=== PATIENT | male | born 1950 | race Caucasian/White ===

== ENCOUNTER → 2017-03-28 | Outpatient (REF) | payer OTHER ==
[2017-03-28 11:50] LABS: INR 0.89
[2017-03-28 11:55] LABS: ALBUMIN 3.6 GM/DL (3.2-5.2); ALBUMIN/GLOBULIN RATIO 0.95 (1.00-1.93); ALKALINE PHOSPHATASE 68 U/L (45-117); ALT/SGPT 23 U/L (12-78); ANION GAP 9 MEQ/L (8-16); AST/SGOT 8 U/L (15-37); BILIRUBIN,TOTAL 0.4 MG/DL (0.2-1.0); BLOOD UREA NITROGEN 22 MG/DL (7-18); CARBON DIOXIDE LEVEL 24 MEQ/L (21-32); CHLORIDE LEVEL 105 MEQ/L (98-107); CHOLESTEROL LEVEL 269 MG/DL (<200); CREATININE FOR GFR 0.97 MG/DL (0.70-1.30); GLOMERULAR FILTRATION RATE > 60.0 (>49); GLUCOSE, FASTING 219 MG/DL (80-110); POTASSIUM SERUM 4.5 MEQ/L (3.5-5.1); SODIUM LEVEL 138 MEQ/L (136-145); TOTAL PROTEIN 7.4 GM/DL (6.4-8.2); TRIGLYCERIDES LEVEL 168 MG/DL (<150)
== END ==
LOC: M SFHCPLAZ 08:17
PROVIDERS: ATTEND Family Medicine
DX: E11.9 Type 2 diabetes mellitus without complications (principal); Z12.5 Encounter for screening for malignant neoplasm of prostate; K76.0 Fatty (change of) liver, not elsewhere classified
CPT/HCPCS: 36415; 80053; 80061; 81001; 82043; 82550; 83036; 85610; 85730; 86140; G0103

== ENCOUNTER 2017-04-11 12:09 | Emergency (ER) | payer OTHER ==
[~2017-04-11] VITALS: Ht 170.2 cm; Wt 87.8 kg
[2017-04-11] MEDS ORDERED: METF500T13 (12:20)
[2017-04-11] MEDS ORDERED: ATEN50TA2 (12:20)
[2017-04-11] MEDS ORDERED: HYDR-3713 (12:20)
[2017-04-11] MEDS ORDERED: LISI10TA4 (12:20)
[2017-04-11] MEDS ORDERED: EZET10TA (12:20)
[2017-04-11] MEDS ORDERED: CARI350T (12:20)
[2017-04-11] MEDS ORDERED: IBUP80TA (12:20)
[2017-04-11] MEDS ORDERED: GLIM4TAB (12:20)
[2017-04-11 13:41] LABS: BASO # 0.1 K/mm3 (0.0-0.2); BASO % 0.7 % (0.0-1.0); EOS # 0.2 K/mm3 (0.0-0.50); EOS % 3.2 % (0.0-3.0); LARGE UNSTAINED CELL # 0.1 K/mm3 (0.0-0.4); LARGE UNSTAINED CELL % 1.5 % (0.0-4.0); LYMPH # 1.5 K/mm3 (1.5-4.5); LYMPH % 19.6 % (24.0-44.0); MEAN CORPUSCULAR HEMOGLOBIN 32.6 pg (27.0-33.0); MEAN CORPUSCULAR HGB CONC 35.9 g/dl (32.0-36.5); MONO # 0.5 K/mm3 (0.0-0.8); MONO % 6.7 % (0.0-5.0); NEUTROPHILS # 5.3 K/mm3 (1.8-7.7); NEUTROPHILS % 68.2 % (36.0-66.0); PLATELET COUNT, AUTOMATED 253 k/mm3 (150-450); RED CELL DISTRIBUTION WIDTH 13.1 % (11.5-14.5); WHITE BLOOD COUNT 7.8 K/mm3 (4.0-10.0)
[2017-04-11 13:47] LABS: ANION GAP 5 MEQ/L (8-16); BLOOD UREA NITROGEN 19 MG/DL (7-18); CALCIUM LEVEL 9.4 MG/DL (8.8-10.2); CARBON DIOXIDE LEVEL 25 MEQ/L (21-32); CHLORIDE LEVEL 108 MEQ/L (98-107); CREATININE FOR GFR 1.16 MG/DL (0.70-1.30); GLOMERULAR FILTRATION RATE > 60.0 (>49); GLUCOSE, FASTING 156 MG/DL (80-110); POTASSIUM SERUM 4.2 MEQ/L (3.5-5.1); SODIUM LEVEL 138 MEQ/L (136-145)
--- NOTE | 2017-04-11 14:20 | REP ---
REASON: Stroke- like symptoms. COMPARISON: None. 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 There is no acute intracranial hemorrhage. There is no mass. The ventricles and sulci are within normal limits. There is no evidence of an acute intracranial hemorrhagic or nonhemorrhagic event. The skull base shows a large defect in the right mastoid air cells consistent with the patient's surgical history. IMPRESSION: No evidence of acute disease as described above. Signed by Lamin Graves DO 04/11/2017 03:59 P
--- NOTE | 2017-04-11 14:22 | REP ---
REASON: Stroke-like symptoms. COMPARISON: 11/18/2008 The technique utilized in obtaining the radiograph has magnified the cardiac silhouette and accentuated the interstitial markings. Subtle increased and somewhat patchy interstitial markings are seen in the lung bases representing a change from the prior exam. The lung sibley are otherwise clear. The heat is not enlarged and the osseous structures are within normal limits. IMPRESSION: Findings involving the lung bases only of uncertain etiology. Basilar fibrotic change and possible basilar pneumonia, correlate clinically with appropriate followup. Signed by Lamin Graves DO 04/11/2017 03:59 P
[2017-04-11] MEDS ORDERED: MECL-68 PO (14:44)
[2017-04-11] MEDS ORDERED: LORazepam 0.5 MG TAB PO ONE (15:30)
[2017-04-11] MEDS ORDERED: amLODIPine 5 MG TAB PO ONE (15:30)
[2017-04-11 15:37] VITALS: BP 212/101
[2017-04-11 16:30] VITALS: BP 193/93
--- NOTE | 2017-04-12 09:17 | ECGEPIP ---
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
== END 2017-04-11 16:58 | disposition home or self-care (01) ==
LOC: M ED 13:16
DX: I10 Essential (primary) hypertension (principal); H83.09 Labyrinthitis, unspecified ear; R26.2 Difficulty in walking, not elsewhere classified; E11.9 Type 2 diabetes mellitus without complications; Z85.828 Personal history of other malignant neoplasm of skin; Z79.899 Other long term (current) drug therapy; Z79.84 Long term (current) use of oral hypoglycemic drugs

== ENCOUNTER → 2017-04-27 | Outpatient (REF) | payer OTHER ==
[~2017-04-27] MED LIST: ATEN50TA2; CARI350T; EZET10TA; GLIM4TAB; HYDR-3713; IBUP80TA; LISI10TA4; MECL-68 PO; METF500T13
[2017-04-27 17:48] LABS: BASO % 0.6 % (0.0-1.0); EOS # 0.3 K/mm3 (0.0-0.50); EOS % 3.7 % (0.0-3.0); LARGE UNSTAINED CELL # 0.2 K/mm3 (0.0-0.4); LARGE UNSTAINED CELL % 2.4 % (0.0-4.0); LYMPH # 1.6 K/mm3 (1.5-4.5); LYMPH % 20.4 % (24.0-44.0); MEAN CORPUSCULAR HEMOGLOBIN 32.7 pg (27.0-33.0); MEAN CORPUSCULAR HGB CONC 34.7 g/dl (32.0-36.5); MEAN CORPUSCULAR VOLUME 94.3 fl (80.0-96.0); MONO # 0.5 K/mm3 (0.0-0.8); MONO % 6.2 % (0.0-5.0); NEUTROPHILS # 5.3 K/mm3 (1.8-7.7); NEUTROPHILS % 66.7 % (36.0-66.0); PLATELET COUNT, AUTOMATED 265 k/mm3 (150-450); RED CELL DISTRIBUTION WIDTH 12.8 % (11.5-14.5); WHITE BLOOD COUNT 7.9 K/mm3 (4.0-10.0)
[2017-04-27 18:56] LABS: ANION GAP 10 MEQ/L (8-16); BLOOD UREA NITROGEN 26 MG/DL (7-18); CARBON DIOXIDE LEVEL 25 MEQ/L (21-32); CHLORIDE LEVEL 104 MEQ/L (98-107); CREATININE FOR GFR 1.22 MG/DL (0.70-1.30); GLOMERULAR FILTRATION RATE > 60.0 (>49); GLUCOSE, FASTING 224 MG/DL (80-110); POTASSIUM SERUM 4.2 MEQ/L (3.5-5.1); SODIUM LEVEL 139 MEQ/L (136-145)
[2017-04-27 20:48] LABS: ERYTHROCYTE SEDIMENTATION RATE 19 mm/hr (0-20)
[2017-04-30 00:07] LABS: Lyme Disease IgG/IgM Antibodie <0.91 ISR (0.00-0.90); Lyme Disease IgM Ab Quantitati <0.80 index (0.00-0.79)
== END ==
LOC: M SFHCPLAZ 16:16
PROVIDERS: ATTEND Family Medicine
DX: M25.50 Pain in unspecified joint (principal); N18.3 Chronic kidney disease, stage 3 (moderate)
CPT/HCPCS: 36415; 80048; 85025; 85652; 86038; 86140; 86200; 86431; 86617; G0463

== ENCOUNTER → 2017-05-25 | Outpatient (REF) | payer OTHER | LOC: M SFHCPLAZ 15:47 | PROVIDERS: ATTEND Physician Assistant Medical | DX: N41.0 Acute prostatitis (principal) | CPT/HCPCS: 36415; G0103 ==

== ENCOUNTER 2017-11-15 09:14 | Day surgery (SDC) | payer OTHER ==
[2017-11-15] MEDS: NS 1,000 ML IV (09:30)
[2017-11-15] MEDS ORDERED: PROPOFOL 200 MG/20 ML VIAL As Ordered ×2 (10:43→11:08)
== END 2017-11-15 11:44 | disposition home or self-care (01) ==
LOC: M OPP 09:14
DX: Z12.11 Encounter for screening for malignant neoplasm of colon (principal); D12.5 Benign neoplasm of sigmoid colon; K64.0 First degree hemorrhoids; K57.30 Diverticulosis of large intestine without perforation or abscess without bleeding; I10 Essential (primary) hypertension; E78.5 Hyperlipidemia, unspecified; E11.9 Type 2 diabetes mellitus without complications; M54.9 Dorsalgia, unspecified; H71.91 Unspecified cholesteatoma, right ear; Z87.891 Personal history of nicotine dependence; Z79.82 Long term (current) use of aspirin; Z79.899 Other long term (current) drug therapy
CPT/HCPCS: 45385

== ENCOUNTER → 2017-11-22 | Outpatient (REF) | payer OTHER ==
[2017-11-22 12:51] LABS: ALBUMIN 3.5 GM/DL (3.2-5.2); ALBUMIN/GLOBULIN RATIO 0.95 (1.00-1.93); ALKALINE PHOSPHATASE 71 U/L (45-117); ALT/SGPT 18 U/L (12-78); ANION GAP 7 MEQ/L (8-16); AST/SGOT 9 U/L (7-37); BILIRUBIN,TOTAL 0.4 MG/DL (0.2-1.0); BLOOD UREA NITROGEN 17 MG/DL (7-18); CALCIUM LEVEL 8.7 MG/DL (8.8-10.2); CARBON DIOXIDE LEVEL 26 MEQ/L (21-32); CHLORIDE LEVEL 104 MEQ/L (98-107); CHOLESTEROL LEVEL 199 MG/DL (<200); CHOLESTEROL RISK RATIO 4.061 (<5); CREATININE FOR GFR 0.94 MG/DL (0.70-1.30); GLOMERULAR FILTRATION RATE > 60.0 (>49); GLUCOSE, FASTING 178 MG/DL (70-100); HDL CHOLESTEROL 49 MG/DL (>40); NON-HDL-C 150 MG/DL; POTASSIUM SERUM 4.7 MEQ/L (3.5-5.1); SODIUM LEVEL 137 MEQ/L (136-145); TOTAL PROTEIN 7.2 GM/DL (6.4-8.2); TRIGLYCERIDES LEVEL 85 MG/DL (<150)
[2017-11-22 12:54] LABS: PTH INTACT 25.5 PG/ML (14.0-72.0)
[2017-11-22 12:56] LABS: ESTIMATED AVERAGE GLUCOSE 226 MG/DL (60-110); HEMOGLOBIN A1c 9.5 %
== END ==
LOC: M SFHCPLAZ 08:58
DX: E78.5 Hyperlipidemia, unspecified (principal); N18.3 Chronic kidney disease, stage 3 (moderate)
CPT/HCPCS: 80053

== ENCOUNTER → 2018-04-03 | Outpatient (REF) | payer OTHER ==
[2018-04-03 13:38] LABS: BASO % 0.4 % (0.0-1.0); EOS # 0.2 10^3/uL (0.0-0.50); HEMATOCRIT 38.8 % (42.0-52.0); HEMOGLOBIN 13.5 g/dl (13.5-17.5); IMMATURE GRANULOCYTE % 0.8 % (0-3.0); LYMPH # 1.6 10^3/uL (1.5-4.5); LYMPH % 20.3 % (24.0-44.0); MEAN CORPUSCULAR HEMOGLOBIN 31.4 pg (27.0-33.0); MEAN CORPUSCULAR HGB CONC 34.8 g/dl (32.0-36.5); MEAN CORPUSCULAR VOLUME 90.2 fl (80.0-96.0); MONO # 0.7 10^3/uL (0.0-0.8); MONO % 8.7 % (0.0-5.0); NEUTROPHILS # 5.1 10^3/uL (1.8-7.7); NEUTROPHILS % 66.8 % (36.0-66.0); PLATELET COUNT, AUTOMATED 231 10^3/uL (150-450); RED CELL DISTRIBUTION WIDTH 12.2 % (11.5-14.5); RETIC HEMOGLOBIN EQUIVALENT 37.9 pg (24-36); RETICULOCYTE # 60.2 10^9/L (17-77); RETICULOCYTE % 1.4 % (0.5-1.5); WHITE BLOOD COUNT 7.7 10^3/uL (4.0-10.0)
[2018-04-03 13:52] LABS: PTH INTACT 42.5 PG/ML (18.5-88.0)
[2018-04-03 13:53] LABS: ALBUMIN 3.5 GM/DL (3.2-5.2); ALBUMIN/GLOBULIN RATIO 0.88 (1.00-1.93); ALKALINE PHOSPHATASE 77 U/L (45-117); ALT/SGPT 29 U/L (12-78); ANION GAP 9 MEQ/L (8-16); AST/SGOT 12 U/L (7-37); BILIRUBIN,TOTAL 0.3 MG/DL (0.2-1.0); BLOOD UREA NITROGEN 27 MG/DL (7-18); CALCIUM LEVEL 8.6 MG/DL (8.8-10.2); CARBON DIOXIDE LEVEL 23 MEQ/L (21-32); CHLORIDE LEVEL 104 MEQ/L (98-107); CREATININE FOR GFR 1.09 MG/DL (0.70-1.30); GLOMERULAR FILTRATION RATE > 60.0 (>49); GLUCOSE, FASTING 129 MG/DL (70-100); MAGNESIUM LEVEL 1.9 MG/DL (1.8-2.4); POTASSIUM SERUM 4.4 MEQ/L (3.5-5.1); PSA SCREENING 2.21 NG/ML (< 4.0); SODIUM LEVEL 136 MEQ/L (136-145); TOTAL PROTEIN 7.5 GM/DL (6.4-8.2)
[2018-04-03 14:24] LABS: TOTAL 25(OH) VITAMIN D 16.9 NG/ML (30.0-100.0)
[2018-04-03 14:32] LABS: ESTIMATED AVERAGE GLUCOSE 189 MG/DL (60-110); HEMOGLOBIN A1c 8.2 %
== END ==
LOC: M SFHCPLAZ 10:45
DX: N18.3 Chronic kidney disease, stage 3 (moderate) (principal); E11.8 Type 2 diabetes mellitus with unspecified complications; Z12.5 Encounter for screening for malignant neoplasm of prostate
CPT/HCPCS: 83735

== ENCOUNTER → 2018-04-07 | Outpatient (CLI) | payer OTHER | LOC: M RAD 07:40 | DX: K76.89 Other specified diseases of liver (principal) | CPT/HCPCS: 76705 ==

== ENCOUNTER 2018-09-10 07:54 | Emergency (ER) | payer OTHER ==
[2018-09-10] MEDS: LIDOCAINE 1% MDV 20ML VIAL IM (08:34)
== END 2018-09-10 08:49 | disposition home or self-care (01) ==
LOC: M ED 07:54
DX: S40.862A Insect bite (nonvenomous) of left upper arm, initial encounter (principal); W57.XXXA Bitten or stung by nonvenomous insect and other nonvenomous arthropods, initial encounter; Y92.89 Other specified places as the place of occurrence of the external cause; I10 Essential (primary) hypertension; E11.9 Type 2 diabetes mellitus without complications; Z79.899 Other long term (current) drug therapy; Z79.84 Long term (current) use of oral hypoglycemic drugs; Z79.82 Long term (current) use of aspirin; Z87.891 Personal history of nicotine dependence
CPT/HCPCS: 10120

== ENCOUNTER → 2018-10-13 | Outpatient (REF) | payer OTHER ==
[~2018-10-13] MED LIST changes: +ASPI81TA85 PO; -ATEN50TA2; +ATEN50TA2 PO; +CARI1TAB7; -CARI350T; -EZET10TA; +EZET10TA PO; -GLIM4TAB; +GLIM4TAB PO; -HYDR-3713; +HYDR-3713 PO; -IBUP80TA; +IBUP80TA PO; +LISI-538 PO; -METF500T13; +METF500T13 PO; +SOMA350T PO
[2018-10-13 12:03] LABS: BASO # 0.1 10^3/uL (0.0-0.2); BASO % 0.7 % (0.0-1.0); EOS # 0.3 10^3/uL (0.0-0.50); HEMATOCRIT 38.9 % (42.0-52.0); HEMOGLOBIN 13.3 g/dl (13.5-17.5); LYMPH # 1.3 10^3/uL (1.5-4.5); LYMPH % 19.5 % (24.0-44.0); MEAN CORPUSCULAR HEMOGLOBIN 31.4 pg (27.0-33.0); MEAN CORPUSCULAR HGB CONC 34.2 g/dl (32.0-36.5); MEAN CORPUSCULAR VOLUME 91.7 fl (80.0-96.0); MONO # 0.6 10^3/uL (0.0-0.8); NEUTROPHILS # 4.5 10^3/uL (1.8-7.7); NEUTROPHILS % 65.6 % (36.0-66.0); PLATELET COUNT, AUTOMATED 253 10^3/uL (150-450); RED BLOOD COUNT 4.24 10^6/uL (4.30-6.10); WHITE BLOOD COUNT 6.8 10^3/uL (4.0-10.0)
[2018-10-13 12:29] LABS: ALBUMIN 3.3 GM/DL (3.2-5.2); ALT/SGPT 21 U/L (12-78); BILIRUBIN,TOTAL 0.4 MG/DL (0.2-1.0); BLOOD UREA NITROGEN 15 MG/DL (7-18); CALCIUM LEVEL 8.4 MG/DL (8.8-10.2); CARBON DIOXIDE LEVEL 25 MEQ/L (21-32); CHLORIDE LEVEL 104 MEQ/L (98-107); CHOLESTEROL LEVEL 189 MG/DL (<200); CHOLESTEROL RISK RATIO 3.375 (<5); CREATININE FOR GFR 1.08 MG/DL (0.70-1.30); GLOMERULAR FILTRATION RATE > 60.0 (>49); GLUCOSE, FASTING 177 MG/DL (70-100); HDL CHOLESTEROL 56 MG/DL (>40); LDL CHOLESTEROL 119 MG/DL (<100); MAGNESIUM LEVEL 1.9 MG/DL (1.8-2.4); NON-HDL-C 133 MG/DL; POTASSIUM SERUM 4.8 MEQ/L (3.5-5.1); SODIUM LEVEL 138 MEQ/L (136-145); TOTAL PROTEIN 6.8 GM/DL (6.4-8.2); TRIGLYCERIDES LEVEL 70 MG/DL (<150)
[2018-10-13 12:36] LABS: PTH INTACT 67.1 PG/ML (18.5-88.0); TOTAL 25(OH) VITAMIN D 29.4 NG/ML (30.0-100.0)
[2018-10-13 12:57] LABS: HEMOGLOBIN A1c 8.3 %
== END ==
LOC: M SFHCPLAZ 08:38
PROVIDERS: ATTEND Nurse Practitioner Family
DX: N18.3 Chronic kidney disease, stage 3 (moderate) (principal); E11.8 Type 2 diabetes mellitus with unspecified complications; E78.5 Hyperlipidemia, unspecified; I13.0 Hypertensive heart and chronic kidney disease with heart failure and stage 1 through stage 4 chronic kidney disease, or unspecified chronic kidney disease

== ENCOUNTER → 2018-12-06 | Outpatient (CLI) | payer MEDICARE ==
--- NOTE | 2018-12-06 12:34 | REP ---
Chest two views HISTORY: Upper respiratory infection Comparison: 04/11/2017 An increase in interstitial markings is present in the lungs consistent with chronic interstitial change. The heart is normal in size. The pulmonary vasculature is normal in appearance. The bony structure is intact. IMPRESSION: Chronic interstitial change. Electronically Signed by Black Lott MD 12/06/2018 12:26 P
== END ==
LOC: M SMT 12:08
PROVIDERS: ATTEND Physician Assistant Medical
DX: J06.9 Acute upper respiratory infection, unspecified (principal)

== ENCOUNTER → 2019-08-20 | Outpatient (REF) | payer MEDICARE ==
[~2019-08-20] MED LIST changes: -EZET10TA PO; +EZET10TA21 PO; -GLIM4TAB PO; +GLIM4TAB3 PO
[2019-08-20 16:01] LABS: APPEARANCE, URINE CLEAR (CLEAR); BACTERIA, URINE AUTO NEGATIVE (NEGATIVE); BILIRUBIN, URINE AUTO NEGATIVE (NEGATIVE); BLOOD, URINE BLOOD NEGATIVE (NEGATIVE); COLOR, URINE YELLOW (YELLOW); GLUCOSE, URINE (UA) AUTO 3+ mg/dL (NEGATIVE); KETONE, URINE AUTO NEGATIVE (NEGATIVE); LEUKOCYTE ESTERASE, URINE AUTO NEGATIVE (NEGATIVE); NITRITE, URINE AUTO NEGATIVE (NEGATIVE); PROTEIN, URINE AUTO 1+ mg/dL (NEGATIVE); RBC, URINE AUTO 1 /HPF (0-3); SPECIFIC GRAVITY URINE AUTO 1.016 (1.002-1.035); SQUAMOUS EPITHELIAL CELL UR AU 0 /HPF (0-6); UROBILINOGEN, URINE AUTO 0.2 mg/dL (0.0-2.0); WBC, URINE AUTO 1 /HPF (0-3)
[2019-08-20 16:10] LABS: BASO % 0.6 % (0.0-1.0); EOS # 0.3 10^3/uL (0.0-0.5); EOS % 3.7 % (0.0-3.0); HEMATOCRIT 39.7 % (42.0-52.0); HEMOGLOBIN 13.8 g/dl (13.5-17.5); LYMPH # 1.7 10^3/uL (1.5-5.0); LYMPH % 23.9 % (24.0-44.0); MEAN CORPUSCULAR HEMOGLOBIN 32.6 pg (27.0-33.0); MEAN CORPUSCULAR HGB CONC 34.8 g/dl (32.0-36.5); MEAN CORPUSCULAR VOLUME 93.9 fl (80.0-96.0); MONO # 0.6 10^3/uL (0.0-0.8); MONO % 8.5 % (0.0-5.0); NEUTROPHILS # 4.5 10^3/uL (1.5-8.5); NEUTROPHILS % 62.9 % (36.0-66.0); PLATELET COUNT, AUTOMATED 240 10^3/uL (150-450); RED BLOOD COUNT 4.23 10^6/uL (4.30-6.10); WHITE BLOOD COUNT 7.1 10^3/uL (4.0-10.0)
[2019-08-20 16:22] LABS: ALBUMIN 3.5 GM/DL (3.2-5.2); BILIRUBIN,TOTAL 0.5 MG/DL (0.2-1.0); CALCIUM LEVEL 8.5 MG/DL (8.8-10.2); CREATININE FOR GFR 1.37 MG/DL (0.70-1.30); FREE T4 0.9 NG/DL (0.76-1.46); GLOMERULAR FILTRATION RATE 54.7 (>42); POTASSIUM SERUM 4.9 MEQ/L (3.5-5.1); THYROID STIMULATING HORMONE 0.787 uIU/ML (0.358-3.740); TOTAL PROTEIN 7.1 GM/DL (6.4-8.2)
[2019-08-20 16:25] LABS: HEMOGLOBIN A1c 8.9 %
[2019-08-20 16:49] LABS: CREATININE, URINE 88.7 MG/DL
== END ==
LOC: M SFHCPLAZ 13:21
PROVIDERS: ATTEND Family Medicine
DX: Z12.5 Encounter for screening for malignant neoplasm of prostate (principal); N18.3 Chronic kidney disease, stage 3 (moderate); E11.8 Type 2 diabetes mellitus with unspecified complications; E78.5 Hyperlipidemia, unspecified; Z79.899 Other long term (current) drug therapy; Z79.82 Long term (current) use of aspirin
CPT/HCPCS: 36415; 80053; 81001; 82043; 83036; 84439; 84443; 84600; 85025; G0103; G0480

== ENCOUNTER → 2019-10-29 | Outpatient (CLI) | payer MEDICARE ==
--- NOTE | 2019-10-29 09:33 | REP ---
URINARY TRACT SONOGRAPHY WITH RENAL ARTERY DOPPLER ASSESSMENT: HISTORY: Chronic kidney disease. COMPARISON: MRI study of the abdomen, May 04, 2012. SONOGRAPHIC FINDINGS: Scanning at the level of the urinary bladder demonstrates somewhat enlarged prostate with dimensions of 5.3 x 4.7 x 5.1 cm for a calculated volume of 66 mL by transabdominal scanning. Renal cortical echogenicity pattern is normal. No hydronephrosis is seen on either side. There is a 4.9 x 4.2 x 4.6 cm cyst at the lower pole of the right kidney which appears simple by sonography. This is a little larger but not new when compared with the prior MRI. Right renal dimensions are 11.5 x 4.9 x 4.6 cm. Left renal dimensions are 12.5 x 4.4 x 5.1 cm. There are two cysts in the lower pole of the left kidney measuring 1.4 and 1.0 cm in greatest diameter. There are two smaller cysts. RENAL ARTERY DOPPLER ASSESSMENT: Peak systolic flow velocity in the abdominal aorta at the level of the main renal arteries is normal measured at 130.7 cm/s. Peak flow velocity in the left renal artery is measured at 37.9 cm/s and that in the right at 131 cm/s. These values are normal. Renal to aortic flow velocity ratios are not elevated. Resistive indices and acceleration times are measured in the upper, mid, and lower pole intrarenal arteries bilaterally and these values are normal as well. IMPRESSION: No evidence renal artery stenosis. Bilateral renal cortical cysts. No hydronephrosis. Please provide arterial Doppler worksheet. Electronically Signed by Eugenio Olivares MD 10/29/2019 11:05 A
== END ==
LOC: M RAD 07:33
PROVIDERS: ATTEND Family Medicine
DX: N18.3 Chronic kidney disease, stage 3 (moderate) (principal)

== ENCOUNTER → 2019-11-23 | Outpatient (CLI) | payer MEDICARE ==
[~2019-11-23] MED LIST changes: -GLIM4TAB3 PO; +GLIM4TAB5 PO; -MECL-68 PO; +MECL1TAB31 PO
[2019-11-23 19:28] LABS: ALBUMIN 3.6 GM/DL (3.2-5.2); CREATININE FOR GFR 1.48 MG/DL (0.70-1.30); POTASSIUM SERUM 4.5 MEQ/L (3.5-5.1)
[2019-11-23 19:40] LABS: TOTAL 25(OH) VITAMIN D 41.9 NG/ML (30.0-100.0)
[2019-11-23 19:41] LABS: PTH INTACT 22.5 PG/ML (18.5-88.0)
== END ==
LOC: M PLALAB 14:06
PROVIDERS: ATTEND Family Medicine
DX: N18.3 Chronic kidney disease, stage 3 (moderate) (principal)

== ENCOUNTER → 2019-12-14 | Outpatient (CLI) | payer MEDICARE ==
[2019-12-14 11:19] LABS: BASO # 0.1 10^3/uL (0.0-0.2); BASO % 0.7 % (0.0-1.0); EOS # 0.2 10^3/uL (0.0-0.5); EOS % 3.5 % (0.0-3.0); HEMATOCRIT 43.5 % (42.0-52.0); HEMOGLOBIN 15.1 g/dl (13.5-17.5); LYMPH # 1.7 10^3/uL (1.5-5.0); MEAN CORPUSCULAR HEMOGLOBIN 31.3 pg (27.0-33.0); MEAN CORPUSCULAR HGB CONC 34.7 g/dl (32.0-36.5); MEAN CORPUSCULAR VOLUME 90.1 fl (80.0-96.0); MONO # 0.5 10^3/uL (0.0-0.8); MONO % 7.7 % (0.0-5.0); NEUTROPHILS # 4.4 10^3/uL (1.5-8.5); NEUTROPHILS % 63.4 % (36.0-66.0); PLATELET COUNT, AUTOMATED 242 10^3/uL (150-450); RED BLOOD COUNT 4.83 10^6/uL (4.30-6.10); WHITE BLOOD COUNT 6.9 10^3/uL (4.0-10.0)
[2019-12-14 11:56] LABS: ALBUMIN 3.7 GM/DL (3.2-5.2); BLOOD UREA NITROGEN 23 MG/DL (7-18); CALCIUM LEVEL 9.6 MG/DL (8.8-10.2); CARBON DIOXIDE LEVEL 28 MEQ/L (21-32); CHLORIDE LEVEL 100 MEQ/L (98-107); CREATININE FOR GFR 1.25 MG/DL (0.70-1.30); GLOMERULAR FILTRATION RATE > 60.0 (>42); GLUCOSE, FASTING 359 MG/DL (70-100); PHOSPHORUS LEVEL 4.2 MG/DL (2.5-4.9); POTASSIUM SERUM 4.7 MEQ/L (3.5-5.1); SODIUM LEVEL 134 MEQ/L (136-145)
== END ==
LOC: M PLALAB 09:59
PROVIDERS: ATTEND Nurse Practitioner Family
DX: I10 Essential (primary) hypertension (principal)

== ENCOUNTER → 2020-06-10 | Outpatient (REF) | payer MEDICARE ==
[~2020-06-10] MED LIST changes: -ASPI81TA85 PO; +ASPI81TA86 PO
[2020-07-28 21:58] LABS: HEMATOCRIT 41.6 % (42.0-52.0); HEMOGLOBIN 14.2 g/dl (13.5-17.5); MEAN CORPUSCULAR HEMOGLOBIN 31.9 pg (27.0-33.0); MEAN CORPUSCULAR HGB CONC 34.1 g/dl (32.0-36.5); MEAN CORPUSCULAR VOLUME 93.5 fl (80.0-96.0); PLATELET COUNT, AUTOMATED 268 10^3/uL (150-450); RED BLOOD COUNT 4.45 10^6/uL (4.30-6.10); WHITE BLOOD COUNT 6.9 10^3/uL (4.0-10.0)
[2020-08-04 04:38] LABS: ALBUMIN 3.7 GM/DL (3.2-5.2); BILIRUBIN,TOTAL 0.4 MG/DL (0.2-1.0); CALCIUM LEVEL 9.2 MG/DL (8.8-10.2); CREATININE FOR GFR 1.44 MG/DL (0.70-1.30); GLOMERULAR FILTRATION RATE 51.5 (>42); HEMOGLOBIN A1c 10.9 %; PTH INTACT 34.3 PG/ML (18.5-88.0); TOTAL 25(OH) VITAMIN D 35.1 NG/ML (30.0-100.0); TOTAL PROTEIN 7.5 GM/DL (6.4-8.2)
== END ==
LOC: M SFHCPLAZ 12:01
PROVIDERS: ATTEND Family Medicine
DX: I12.9 Hypertensive chronic kidney disease with stage 1 through stage 4 chronic kidney disease, or unspecified chronic kidney disease (principal); E11.8 Type 2 diabetes mellitus with unspecified complications; N18.3 Chronic kidney disease, stage 3 (moderate)
CPT/HCPCS: 36415; 80053; 82306; 83036; 83970; 85025; G0103

== ENCOUNTER → 2020-10-27 | Outpatient (CLI) | payer MEDICARE ==
[~2020-10-27] MED LIST changes: +CARI1TAB7 PO; +LOSA50TA88 PO; +NORC1TAB7 PO
== END ==
LOC: M LABSMTC 12:22
PROVIDERS: ATTEND Family Medicine
DX: Z20.828 Contact with and (suspected) exposure to other viral communicable diseases (principal)

== ENCOUNTER 2020-10-29 15:21 | Inpatient (IN) | payer MEDICARE ==
[~2020-10-29] VITALS: Ht 170.2 cm; Wt 74.9 kg
[~2020-10-29 15:21] MED LIST changes: -CARI1TAB7 PO; -LOSA50TA88 PO; -NORC1TAB7 PO
[2020-10-29 16:37] LABS: ABG pH (ARTERIAL) 7.375 UNITS (7.350-7.450)
[2020-10-29 16:38] LABS: ABG BASE EXCESS -9.1 (-2.0-2.0); ABG HCO3 14.2 MEQ/L (22.0-26.0); ABG O2 SATURATION 91.3 % (95.0-99.0); ABG PARTIAL PRESSURE CO2 24.8 mmHg (35.0-45.0); ABG PARTIAL PRESSURE O2 63.3 mmHg (75.0-100.0); ABG STANDARD HCO3 17.2 MEQ/L (22.0-26.0); ABG TOTAL CO2 14.9 MEQ/L (23.0-31.0)
[2020-10-29 16:43] LABS: BASO % 0.3 % (0.0-1.0); EOS % 0.1 % (0.0-3.0); HEMATOCRIT 41.2 % (42.0-52.0); HEMOGLOBIN 13.6 g/dl (13.5-17.5); LYMPH # 0.8 10^3/uL (1.5-5.0); LYMPH % 8.1 % (24.0-44.0); MEAN CORPUSCULAR VOLUME 90.9 fl (80.0-96.0); MONO # 0.5 10^3/uL (0.0-0.8); NEUTROPHILS # 8.2 10^3/uL (1.5-8.5); NEUTROPHILS % 85.2 % (36.0-66.0); PLATELET COUNT, AUTOMATED 451 10^3/uL (150-450); RED BLOOD COUNT 4.53 10^6/uL (4.30-6.10); WHITE BLOOD COUNT 9.6 10^3/uL (4.0-10.0)
--- NOTE | 2020-10-29 17:13 | REP ---
INDICATION: Coronavirus workup. COMPARISON: 12/06/2018. TECHNIQUE: SINGLE PORTABLE AP VIEW OF THE CHEST WAS PERFORMED. FINDINGS: There appear to be bilateral lower lung infiltrates primarily in the peripheral aspect. Heart is not enlarged. There is mild calcification of the thoracic aorta. The mediastinal silhouette is otherwise unremarkable. IMPRESSION: Bilateral lower lung infiltrates peripherally. <Electronically signed by Mejia Swartz > 10/29/20 0260
[2020-10-29 17:17] LABS: INR 1.04; PROTHROMBIN TIME 13.8 SECONDS (12.5-14.3)
[2020-10-29 17:18] LABS: PARTIAL THROMBOPLASTIN TIME 34.3 SECONDS (24.2-38.5)
[2020-10-29 17:24] LABS: D-DIMER QUANT 3905.14 ng/ml (<500)
[2020-10-29] MEDS ORDERED: HumuLIN R (REGULAR) INSULIN (NovoLIN R) **100U/ML** PER UNIT IV STA (17:28)
[2020-10-29 17:29] LABS: ALBUMIN 2.4 GM/DL (3.2-5.2); ALT/SGPT 23 U/L (12-78); BILIRUBIN,TOTAL 0.5 MG/DL (0.2-1.0); BLOOD UREA NITROGEN 49 MG/DL (7-18); CALCIUM LEVEL 8.9 MG/DL (8.8-10.2); CARBON DIOXIDE LEVEL 20 MEQ/L (21-32); CHLORIDE LEVEL 98 MEQ/L (98-107); CK-MB VALUE MASS < 1.0 NG/ML (<3.6); CPK CREATINE PHOSPHOKINASE 29 U/L (39-308); CREATININE FOR GFR 1.95 MG/DL (0.70-1.30); FERRITIN 1772 NG/ML (26-388); GLOMERULAR FILTRATION RATE 36.3 (>42); GLUCOSE, FASTING 580 MG/DL (70-100); LDH LACTATE DEHYDROGENASE 402 U/L (87-241); MAGNESIUM LEVEL 2.2 MG/DL (1.8-2.4); MB/CK RELATIVE INDEX 3.45 (< OR =4); POTASSIUM SERUM 5.1 MEQ/L (3.5-5.1); SODIUM LEVEL 130 MEQ/L (136-145); TOTAL PROTEIN 7.1 GM/DL (6.4-8.2); TROPONIN I < 0.02 NG/ML (< 0.10)
[2020-10-29] MEDS ORDERED: NS 1,000 ML IV ONE (17:30)
[2020-10-29 18:12] LABS: ABG BASE EXCESS -7.3 (-2.0-2.0); ABG HCO3 16.3 MEQ/L (22.0-26.0); ABG O2 SATURATION 91.3 % (95.0-99.0); ABG PARTIAL PRESSURE CO2 28.6 mmHg (35.0-45.0); ABG PARTIAL PRESSURE O2 62.4 mmHg (75.0-100.0); ABG STANDARD HCO3 18.5 MEQ/L (22.0-26.0); ABG TOTAL CO2 17.2 MEQ/L (23.0-31.0); ABG pH (ARTERIAL) 7.375 UNITS (7.350-7.450)
[2020-10-29] MEDS ORDERED: GLUCAGON INJ 1MG VIAL SC PRN (21:00)
[2020-10-29] MEDS ORDERED: NS 1,000 ML IV SCH (21:00)
[2020-10-29] MEDS: atenoloL 50 MG TAB PO SCH (21:00)
[2020-10-29] MEDS ORDERED: DEXTROSE 50% 50 ML SYRINGE IV PRN (21:00)
[2020-10-29] MEDS: HumaLOG INSULIN (NovoLOG) PER UNIT SC SCH (21:00)
[2020-10-29] MEDS ORDERED: ENOXAPARIN 30MG/0.3ML SYRINGE (J1650 PER 10MG) SC SCH (21:00)
[2020-10-29] MEDS ORDERED: GLUCOSE 4GM CHEW TABLET PO PRN (21:00)
[2020-10-29] MEDS: LEVEMIR (INSULIN DETEMIR) 1 UNITS/0.01ML SC SCH (21:00)
--- NOTE | 2020-10-29 21:08 | HPEPDOC ---
[facility] Medical History & Physical Date of Admission Oct 30, 2020 Date of Service: Oct 30, 2020 History and Physical CHIEF COMPLAINT: Shortness of breath and malaise HISTORY OF PRESENT ILLNESS: 70-year-old male with a past medical history of HTN, DM2, CKD III, presenting with progressively worsening shortness of breath, fevers and malaise for the past 2 weeks. Was diagnosed with covid-19 on 10/27/20. Patient denies chest pain, palpitations, nausea, vomiting or diarrhea. Patient at baseline is able to ambulate independently, and requires no mobility aids. On arrival to ED, patient was hypoxic to the high 70s, and adequate oxygenation was not supplied by nasal cannula. Required vapotherm but continued to desaturate despite max settings Relevant labs noted were Na 130. Cr 1.95. BUN 49. GLU 580. LA 2.1. Ferritin 1772. LDH 402. CRP 26.3. Procal 0.34. ABG pH 7.375. pO2 62.4. HCO3 16.3. CO2 28.6. Patient will be admitted to ICU for bipap. PAST MEDICAL HISTORY: DM2 HTN CKD stage III Second degree heart block, Mobitz type 1 Lumbar DJD s/p laminectomy Bilateral chronic LE radiculopathy R knee OA Hx of BCC Hx or R cholesteatoma, secondary R facial nerve palsy AYDE R liver lobe complex cyst PAST SURGICAL HISTORY: Hx of cholesteatoma s/p resection Lumbar laminectomy SOCIAL HISTORY: Patient denies smoking Patient denies etoh use Patient denies illicit drug use ALLERGIES: Please see below. REVIEW OF SYSTEMS: CONSTITUTIONAL: patient denies fevers, chills HEENT: patient denies blurred vision, loss of vision, headache,. CARDIOVASCULAR: patient denies chest pain, palpitations. RESPIRATORY: patient denies shortness of breath, cough, hemoptysis. GASTROINTESTINAL: patient denies abdominal pain, n/v/d, blood in stool. GENITOURINARY: patient denies dysuria, discharge. SKIN: patient denies rashes. MUSCULOSKELETAL: patient denies joint pain, neck pain. NEUROLOGICAL: patient denies focal weakness, numbness, seizures. PSYCHIATRIC: patient denies SI/HI. ENDOCRINE: patient denies polyuria, heat intolerance, cold intolerance. HEMATOLOGIC/LYMPHATIC: patient denies easy bruising. HOME MEDICATIONS: Please see below. PHYSICAL EXAMINATION: VITAL SIGNS: please see below General: NAD, comfortable HEENT: PERRLA, EOMI, sclerae clear. R facial droop - chronic, s/p resection cholesteatomy Neck: supple, normal ROM, no JVD Respiratory: lungs CTAB, no wheeze, no rales, no crackles CVS: RRR, normal S1, S2, no murmurs Abdo: soft, no masses, no hepatosplenomegaly, BS+, no rebound tenderness Extremities: no edema, pulses 2+ MSK: no joint deformities, normal ROM Neuro: no focal neuro deficits, moving all 4 extremities, CN2-12 intact. Strength 5/5 in all 4 extremities. No nystagmus. Psych: calm, cooperative, AAO x 3 LABORATORY DATA: See below. IMAGING: CXR (10/29/20) Bilateral lower lung infiltrates peripherally. MICROBIOLOGY: Please see below. ASSESSMENT: 70-year-old male with a past medical history of HTN, DM2, CKD III, presenting with progressively worsening shortness of breath, fevers and malaise for the past 2 weeks. Admitted to hospitalist service for management of acute hypoxic respiratory failure 2/2 covid-19 infection. . PLAN: #Acute hypoxic respiratory failure #Covid-19 infection - elevated inflammatory markers, D dimer > 3000. CRP 26. - CXR bilateral infiltrates - admit to ICU on Bipap. - droplet precautions - dexamethasone 6 mg IV daily - no remdesivir as out of chronicity window (onset of symptoms 2 weeks) - monitor daily inflammatory labs - given increasing O2 requirment, and rapid decompensation will start on empiric abx for bacterial pna; ceftriaxone, metronidazole. - full dose anticoagulation given rapid rise in O2 requirement. - pulmonary consult placed #Lactic acidosis - LA 2.1 - s/p 1L NS bolus - repeat LA - blood culture sent #DM2 - BG 580 on arrival, LA 2.1. pH > 7.3. - received 10 units regular insulin, improved to 400 - check beta hydroxybutarate - > 40. - high risk for DKA/HHS, based on labs does not formally meet DKA/HHS diagnosis - however, will start on weight based insulin as dexamethasone likely to exacerbate hyperglycemia, along with ISS #JONATHAN on CKD - Baseline Cr ~1.4-1.5, increased to 1.95 - will provide gentle IVF with NS at 80 cc/hr - repeat BMP in am - avoid nephrotoxic agents - med rec shows ibuprogen 800 daily? discontinue. #HTN - BP elevated - hold lisinopril given JONATHAN - resume atenolol 50 mg daily #R facial droop - chronic, due to secondary R facial nerve palsy - s/p resection of R cholesteatoma. #chronic back pain - resume home meds, norco DVT ppx: lovenox 0.5 mg/kg q12h Code status: full code Dispo: admission expected to last > 2 midnights. Vital Signs Vital Signs Date Time Temp Pulse Resp B/P (MAP) Pulse Ox O2 Delivery O2 Flow Rate FiO2 10/29/20 19:10 75 93 10/29/20 19:01 22 10/29/20 19:00 174/80 (111) 10/29/20 18:30 Nasal Cannula 10/29/20 16:29 97.0 Laboratory Data Labs 24H Laboratory Tests 2 10/29/20 15:50: Immature Granulocyte % (Auto) 1.3, Neutrophils (%) (Auto) 85.2H, Lymphocytes (%) (Auto) 8.1L, Monocytes (%) (Auto) 5.0, Eosinophils (%) (Auto) 0.1, Basophils (%) (Auto) 0.3, Neutrophils # (Auto) 8.2, Lymphocytes # (Auto) 0.8L, Monocytes # (A uto) 0.5, Eosinophils # (Auto) 0.0, Basophils # (Auto) 0.0, Nucleated Red Blood Cells % (auto) 0.0, Prothrombin Time 13.8, Prothromb Time International Ratio 1.04, Activated Partial Thromboplast Time 34.3, Fibrinogen 789H, D-Dimer, Quantitative 3905.14H, Anion Gap 12, Glomerular Filtration Rate 36.3L, Lactic Acid Level 2.1*H, Calcium Level 8.9, Magnesium Level 2.2, Ferritin 1772H, Total Bilirubin 0.5, Aspartate Amino Transf (AST/SGOT) 19, Alanine Aminotransferase (ALT/SGPT) 23, Alkaline Phosphatase 82, Lactate Dehydrogenase 402H, Total Creatine Kinase 29L, Creatine Kinase MB < 1.0, Creatine Kinase MB Relative Index 3.45, Troponin I < 0.02, C-Reactive Protein, Quantitative 26.30H, Total Protein 7.1, Albumin 2.4L, Albumin/Globulin Ratio 0.5, Procalcitonin 0.34 10/29/20 16:30: Blood Gas Bicarbonate Standard 17.2L, Arterial Blood pH 7.375, Arterial Blood Partial Pressure CO2 24.8L, Arterial Blood Partial Pressure O2 63.3L, Arterial Blood Total CO2 14.9L, Arterial Blood HCO3 14.2L, Arterial Blood Base Excess - 9.1L, Arterial Blood Oxygen Saturation 91.3L 10/29/20 17:52: Blood Gas Bicarbonate Standard 18.5L, Arterial Blood pH 7.375, Arterial Blood P artial Pressure CO2 28.6L, Arterial Blood Partial Pressure O2 62.4L, Arterial Blood Total CO2 17.2L, Arterial Blood HCO3 16.3L, Arterial Blood Base Excess - 7.3L, Arterial Blood Oxygen Saturation 91.3L CBC/BMP Laboratory Tests 10/29/20 15:50 Microbiology Microbiology 10/29/20 Blood Culture, Received Pending Home Medications Scheduled Atenolol (Atenolol) 50 Mg Tablet, 50 MG PO BID Glimepiride (Glimepiride) 4 Mg Tablet, 4 MG PO BID BEFORE MEALS Losartan Potassium (Losartan Potassium) 50 Mg Tablet, 50 MG PO DAILY Metformin HCl (Metformin HCl) 500 Mg Tablet, 500 MG PO BIDWM Scheduled PRN Carisoprodol (Carisoprodol) 350 Mg Tablet, 350 MG PO QID PRN for MUSCLE SPASMS Hydrocodone/Acetaminophen ([place] 5-325 Tablet) 1 Each Tablet, 1 TAB PO TID PRN for PAIN Allergies Coded Allergies: No Known Drug Allergies (Verified Allergy, Unknown, 10/29/20) A-FIB/CHADSVASC A-FIB History Current/History of A-Fib/PAF?: No Current PO Anticoag Therapy: No BERTRAM HYLTON MD Oct 29, 2020 21:08
[2020-10-29] MEDS ORDERED: ACETAMINOPHEN TAB 650MG DOSE (2X325MG) PO PRN (21:15)
[2020-10-29 21:37] LABS: ACETONE/KETONE 40.63 MG/DL (<2.81)
[2020-10-29] MEDS ORDERED: CARI1TAB7 PO (22:47)
[2020-10-29] MEDS ORDERED: LOSA50TA88 PO (22:47)
[2020-10-29] MEDS ORDERED: METF500T13 PO (22:47)
[2020-10-29] MEDS ORDERED: GLIM4TAB5 PO (22:47)
[2020-10-29] MEDS ORDERED: NORC1TAB7 PO (22:47)
[2020-10-29] MEDS ORDERED: ATEN50TA2 PO (22:47)
[2020-10-30] VITALS (9 sets, daily range): BP systolic 127–181; BP diastolic 60–92
[2020-10-30] MEDS ORDERED: carisoprodoL 350 MG TAB PO PRN (00:45)
[2020-10-30] MEDS ORDERED: NORCO, ANEXSIA 5/325MG TABLET (HYDROcodone/ACETAMINOPHEN) PO PRN (00:45)
[2020-10-30] MEDS: HumaLOG INSULIN (NovoLOG) PER UNIT SC SCH ×5 (00:45→21:24)
[2020-10-30] MEDS ORDERED: hydrALAZINE 20MG/ML 1ML VIAL (J0360 PER 20MG) IV PRN (00:45)
--- NOTE | 2020-10-30 05:30 | ECGEPIP ---
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
[2020-10-30] MEDS ORDERED: metroNIDAZOLE 500 MG in IV 1 EA IV SCH (06:00)
[2020-10-30] MEDS ORDERED: HumaLOG INSULIN (NovoLOG) PER UNIT SC SCH ×2 (07:30)
[2020-10-30 08:04] LABS: BASO % 0.2 % (0.0-1.0); EOS % 0.2 % (0.0-3.0); HEMATOCRIT 42.5 % (42.0-52.0); HEMOGLOBIN 14.3 g/dl (13.5-17.5); LYMPH # 0.8 10^3/uL (1.5-5.0); MEAN CORPUSCULAR HEMOGLOBIN 29.9 pg (27.0-33.0); MEAN CORPUSCULAR HGB CONC 33.6 g/dl (32.0-36.5); MEAN CORPUSCULAR VOLUME 88.7 fl (80.0-96.0); MONO # 0.7 10^3/uL (0.0-0.8); MONO % 5.4 % (0.0-5.0); NEUTROPHILS # 10.9 10^3/uL (1.5-8.5); NEUTROPHILS % 86.9 % (36.0-66.0); PLATELET COUNT, AUTOMATED 475 10^3/uL (150-450); RED BLOOD COUNT 4.79 10^6/uL (4.30-6.10); WHITE BLOOD COUNT 12.6 10^3/uL (4.0-10.0)
[2020-10-30 08:33] LABS: ALBUMIN 2.3 GM/DL (3.2-5.2); ALT/SGPT 23 U/L (12-78); BILIRUBIN,DIRECT 0.2 MG/DL (0.0-0.2); BILIRUBIN,TOTAL 0.4 MG/DL (0.2-1.0); BLOOD UREA NITROGEN 45 MG/DL (7-18); CALCIUM LEVEL 9.4 MG/DL (8.8-10.2); CARBON DIOXIDE LEVEL 21 MEQ/L (21-32); CHLORIDE LEVEL 110 MEQ/L (98-107); CREATININE FOR GFR 1.41 MG/DL (0.70-1.30); FERRITIN 1600 NG/ML (26-388); GLOMERULAR FILTRATION RATE 52.7 (>42); GLUCOSE, FASTING 141 MG/DL (70-100); MAGNESIUM LEVEL 2.4 MG/DL (1.8-2.4); NT-PRO BNP 1224 PG/ML (<125); POTASSIUM SERUM 4.4 MEQ/L (3.5-5.1); SODIUM LEVEL 141 MEQ/L (136-145); TOTAL PROTEIN 7.1 GM/DL (6.4-8.2); TROPONIN I < 0.02 NG/ML (< 0.10)
[2020-10-30 08:43] LABS: INR 1.1; PROTHROMBIN TIME 14.4 SECONDS (12.5-14.3)
[2020-10-30 08:44] LABS: PARTIAL THROMBOPLASTIN TIME 38.1 SECONDS (24.2-38.5)
[2020-10-30] MEDS ORDERED: ENOXAPARIN 80MG/0.8ML SYRINGE (J1650 PER 10MG) SC SCH (09:00)
[2020-10-30] MEDS: atenoloL 50 MG TAB PO SCH ×2 (10:06→21:23)
[2020-10-30] MEDS: cefTRIAXone SOD 2 GM in D5W MINI-BAG PLUS 50 ML IV SCH (10:08)
[2020-10-30] MEDS: dexameTHASONE 4 MG/ML 1ML VIAL (J1100 PER 1MG) IV SCH (10:08)
--- NOTE | 2020-10-30 13:04 | IPNPDOC ---
Text Note Date of Service The patient was seen on 10/30/20. NOTE SUBJECTIVE: -Refused BiPAP, continues on vapotherm PHYSICAL EXAMINATION: VITAL SIGNS: please see below General: NAD, comfortable HEENT: PERRLA, EOMI, sclerae clear. chronic R facial droop s/p resection cholesteatomy Neck: supple, normal ROM, no JVD Respiratory: lungs CTAB, no wheeze, no rales, no crackles, has some rare upper airway transmitted sounds CVS: RRR, normal S1, S2, no murmurs Abdo: soft, no masses, no hepatosplenomegaly, BS+, no rebound tenderness Extremities: no edema, pulses 2+ MSK: no joint deformities, normal ROM Neuro: no focal neuro deficits, moving all 4 extremities, CN3-12 intact. Strength 5/5 in all 4 extremities. Psych: calm, cooperative, AAO x 3 LABORATORY DATA: Reviewed. See below. IMAGING: CXR (10/29/20) Bilateral lower lung infiltrates peripherally. MICROBIOLOGY: Please see below. ASSESSMENT: 70-year-old M with HTN, DM2, CKD III, presenting with progressively worsening shortness of breath, fevers and malaise for the past 2 weeks and admitted to the ICU for acute hypoxic respiratory failure 2/2 covid-19 PNA. . PLAN: #Acute hypoxic respiratory failure 2/2 Covid-19 PNA: - elevated inflammatory markers, D dimer > 3000. CRP 26. - CXR bilateral infiltrates - admit to ICU on vapotherm - droplet precautions - dexamethasone 6 mg IV daily - no remdesivir as out of chronicity window (onset of symptoms 2 weeks) - monitor daily inflammatory labs - given increasing O2 requirement, and rapid decompensation will start on empiric abx for bacterial pna; ceftriaxone, dc metronidazole. - full dose anticoagulation given rapid rise in O2 requirement. - pulmonary consult placed #Lactic acidosis: resolved - s/p 1L NS bolus - f/u blood cultures #DM2 - BG 580 on arrival, LA 2.1. pH > 7.3 --> hyperglycemia resolved with insulin - high risk for DKA/HHS, based on labs does not formally meet DKA/HHS diagnosis - ISS AC/HS - FSBG AC/HS - hypoglycemia protocol - levemir 10u QHS #JONATHAN on CKD - Baseline Cr ~1.4-1.5, increased to 1.95 - On gentle IVF with NS at 80 cc/hr - repeat BMP in am - avoid nephrotoxic agents - med rec shows ibuprofen 800 daily? discontinued #HTN - hold lisinopril given JONATHAN - resume atenolol 50 mg daily #R facial droop - chronic, due to secondary R facial nerve palsy - s/p resection of R cholesteatoma. #chronic back pain - resume home meds, norco DVT ppx: lovenox 40mg q12h Code status: full code Dispo: admission expected to last > 2 midnights. VS,Fishbone, I+O VS, Fishbone, I+O Laboratory Tests 10/29/20 15:50 10/30/20 07:25 Vital Signs Date Time Temp Pulse Resp B/P (MAP) Pulse Ox O2 Delivery O2 Flow Rate FiO2 10/30/20 10:06 79 155/75 10/30/20 07:46 99.2 28 91 Non-Rebreather LAN HALLMAN MD Oct 30, 2020 10:35
[2020-10-30 21:06] LABS: BASO % 0.2 % (0.0-1.0); HEMATOCRIT 40.1 % (42.0-52.0); HEMOGLOBIN 13.3 g/dl (13.5-17.5); LYMPH # 0.7 10^3/uL (1.5-5.0); MEAN CORPUSCULAR HGB CONC 33.2 g/dl (32.0-36.5); MEAN CORPUSCULAR VOLUME 90.5 fl (80.0-96.0); MONO # 0.5 10^3/uL (0.0-0.8); MONO % 4.9 % (0.0-5.0); NEUTROPHILS # 9.5 10^3/uL (1.5-8.5); NEUTROPHILS % 87.9 % (36.0-66.0); PLATELET COUNT, AUTOMATED 447 10^3/uL (150-450); RED BLOOD COUNT 4.43 10^6/uL (4.30-6.10); WHITE BLOOD COUNT 10.8 10^3/uL (4.0-10.0)
[2020-10-30] MEDS: ENOXAPARIN 40MG/0.4ML SYRINGE (J1650 PER 10MG) SC SCH (21:22)
[2020-10-30] MEDS: LEVEMIR (INSULIN DETEMIR) 1 UNITS/0.01ML SC SCH (21:24)
[2020-10-30 21:49] LABS: BLOOD UREA NITROGEN 49 MG/DL (7-18); CALCIUM LEVEL 8.6 MG/DL (8.8-10.2); CARBON DIOXIDE LEVEL 19 MEQ/L (21-32); CHLORIDE LEVEL 104 MEQ/L (98-107); GLOMERULAR FILTRATION RATE 49.1 (>42); GLUCOSE, FASTING 364 MG/DL (70-100); MAGNESIUM LEVEL 2.1 MG/DL (1.8-2.4); NT-PRO BNP 767 PG/ML (<125); POTASSIUM SERUM 4.6 MEQ/L (3.5-5.1); SODIUM LEVEL 132 MEQ/L (136-145); TROPONIN I < 0.02 NG/ML (< 0.10)
--- NOTE | 2020-10-30 22:03 | CR ---
CONSULTATION DATE: 10/30/2020 CHIEF COMPLAINT: Shortness of breath. HISTORY OF PRESENT ILLNESS: Mr. Butts is a 70-year-old male with a past medical history of hypertension, diabetes, chronic kidney disease (CKD), who presented with complaints of worsening shortness of breath and dyspnea for the past 12 days. Patient had symptoms initially with fevers as well as malaise. He did also have a cough he states initially which was occasionally productive of scant mucus. Patient was diagnosed positive with COVID-19 on 10/27/2020 but did not present to the emergency department until he had worsening shortness of breath. Patient denies any chest pain currently. He did have chest pain he states initially when he was having more severe coughing. He has not had any abdominal pain, no nausea or vomiting. He denies noticing any increased lower extremity edema. Patient in the emergency department (ED) was hypoxic and required initiation of Vapotherm at 40 liters/minute and 100% FiO2. Overnight, he had episodes still of desaturation and he was transferred to the intensive care unit (ICU) for bilevel positive airway pressure (BiPAP). BiPAP was ordered, however patient states after placing the machine on, after only a few minutes he was feeling suffocated from the face mask and was unable to tolerate the BiPAP. He therefore was continued with just Vapotherm. He does report that his dyspnea has improved since being admitted to the hospital and this morning he was seen conversing and eating breakfast. PAST MEDICAL AND SURGICAL HISTORY: 1. Diabetes. 2. Hypertension. 3. CKD. 4. Second-degree heart block Mobitz type 1. 5. Lumbar degenerative disc disease status post laminectomy. 6. Right knee osteoarthritis. 7. History of basal cell carcinoma (BCC). 8. History of cholesteatoma and secondary right facial nerve palsy. 9. Coronary artery disease (CAD). 10. Right liver lobe complex cyst. 11. Bilateral chronic lower extremity radiculopathy. SOCIAL HISTORY: Patient is a former smoker, quit smoking 20 or 30 years ago, was about a pack a day. He denies any alcohol use currently or other drug use. FAMILY HISTORY: Noncontributory. HOME MEDICATIONS: - atenolol - glimepiride - losartan - metformin - carisoprodol - [place] as needed ALLERGIES: No known drug allergies. VITAL SIGNS: Temperature 99.2, pulse 84, respirations 28, blood pressure 165/85, oxygen saturation 91% on Vapotherm at 100% FiO2. Intake 700, output not recorded. GENERAL: Patient is sitting in bed, awake and alert. He is able to speak in mostly complete sentences. He has mild accessory muscle use and is mildly tachypneic. HEENT: Atraumatic. There is a right facial droop which is chronic. Pupils are reactive. Neck is supple, trachea is midline. Unable to evaluate any jugular venous distension (JVD). CARDIAC: Regular rate and rhythm, normal S1, S2, no murmurs auscultated. PULMONARY: Diminished breath sounds bilaterally. Few crackles at the bases. No wheezing or rhonchi. ABDOMEN: Soft, nontender, nondistended. EXTREMITIES: There is no lower extremity edema bilaterally. There is no calf tenderness bilaterally. LABORATORY DATA: WBC 12.6, hemoglobin 14.3, platelets of 475. Chemistry: Sodium 141, potassium 4.4, chloride 110, bicarbonate is 21, BUN 45, creatinine is 1.41, glucose is 141, lactic acid is 2.1, repeat is 1.9, ferritin is 1000, AST and ALT within normal limits, BNP 1224, procalcitonin 0.34, fibrinogen 677, D-dimer is 3905. ABG: pH is 7.375, pCO2 of 28.6, pO2 of 62.4. Chest x-ray on admission showed increased diffuse interstitial markings bilaterally as well as some peripheral opacities in the lower lobes. ASSESSMENT AND PLAN: Mr. Butts is a 70-year-old male with history of hypertension, diabetes, and chronic kidney disease (CKD) who presented with worsening shortness of breath for the past 12 days. Patient with acute hypoxemic respiratory failure in the setting of COVID-19 pneumonia. He does have infiltrates on imaging although there is also some increased interstitial markings as well. - Continue dexamethasone for his severe hypoxemic respiratory failure requiring Vapotherm. He appears to be out of the window currently for Remdesivir. Can continue monitoring his inflammatory markers and could consider tocalizumab if he has increasing inflammatory markers. - Patient does have a significantly elevated D-dimer and he is unable to get a CT angio due to his acute kidney injury (JONATHAN) would treat empirically with full dose Lovenox for anticoagulation. Can consider getting an echocardiogram to evaluate to see if there is any evidence of right heart strain which could be consistent with pulmonary embolus (PE). Patient admittedly had not been as physically active in the past 2 weeks almost due to his symptoms. - Continue patient on Vapotherm. He refused bilevel positive airway pressure (BiPAP) overnight, although with discussion of the patient again he is willing to attempt BiPAP if needed. We did also discuss with the patient the importance of awake pronation and he is willing to awake prone. With pronation his oxygenation does improve. Will continue therefore with the Vapotherm and wean down FiO2 as tolerated to maintain oxygen saturation above 90%. - Continue patient on broad-spectrum antibiotics. Given his imaging and with elevated procalcitonin, would continue with empiric treatment for bacterial pneumonia and continue trending procalcitonin to deescalate. - Patient does have elevated brain natriuretic peptide (BNP) and does have some increased interstitial markings on imaging and there is a possibility of a component of pulmonary edema. As he did have acute kidney injury (JONATHAN) on chronic kidney disease (CKD) however which improved with IV fluids, would hold off on diuretics but would not give additional IV fluids particularly as the patient is tolerating by mouth intake. Would discontinue his maintenance fluids. Deep venous thrombosis (DVT) prophylaxis. Recommend full dose Lovenox, currently on lovenox prophylaxis CODE STATUS: FULL CODE. Discussed with the patient about his goals of care and he did confirm that he is FULL CODE at this time and he is willing to use BiPAP if needed. Total critical time spent not including procedures approximately 1 hour and 30 minutes. KASIAD
[2020-10-31] VITALS (13 sets, daily range): BP systolic 109–191; BP diastolic 53–91
[2020-10-31 05:43] LABS: BASO % 0.2 % (0.0-1.0); HEMATOCRIT 40.5 % (42.0-52.0); HEMOGLOBIN 13.4 g/dl (13.5-17.5); LYMPH # 0.8 10^3/uL (1.5-5.0); LYMPH % 7.9 % (24.0-44.0); MEAN CORPUSCULAR HEMOGLOBIN 29.8 pg (27.0-33.0); MEAN CORPUSCULAR HGB CONC 33.1 g/dl (32.0-36.5); MONO # 0.5 10^3/uL (0.0-0.8); MONO % 5.1 % (0.0-5.0); NEUTROPHILS # 8.2 10^3/uL (1.5-8.5); NEUTROPHILS % 85.6 % (36.0-66.0); PLATELET COUNT, AUTOMATED 446 10^3/uL (150-450); WHITE BLOOD COUNT 9.5 10^3/uL (4.0-10.0)
[2020-10-31 06:12] LABS: ALT/SGPT 25 U/L (12-78); BILIRUBIN,DIRECT 0.1 MG/DL (0.0-0.2); BILIRUBIN,TOTAL 0.4 MG/DL (0.2-1.0); BLOOD UREA NITROGEN 47 MG/DL (7-18); CALCIUM LEVEL 8.7 MG/DL (8.8-10.2); CARBON DIOXIDE LEVEL 22 MEQ/L (21-32); CHLORIDE LEVEL 105 MEQ/L (98-107); CHOLESTEROL LEVEL 188 MG/DL (< 200); CPK CREATINE PHOSPHOKINASE 32 U/L (39-308); CREATININE FOR GFR 1.41 MG/DL (0.70-1.30); FERRITIN 1424 NG/ML (26-388); GLOMERULAR FILTRATION RATE 52.7 (>42); GLUCOSE, FASTING 289 MG/DL (70-100); INR 1.12; LDH LACTATE DEHYDROGENASE 320 U/L (87-241); MAGNESIUM LEVEL 2.1 MG/DL (1.8-2.4); NT-PRO BNP 715 PG/ML (<125); PROTHROMBIN TIME 14.6 SECONDS (12.5-14.3); SODIUM LEVEL 134 MEQ/L (136-145); TOTAL PROTEIN 7.1 GM/DL (6.4-8.2); TRIGLYCERIDES LEVEL 184 MG/DL (<150); TROPONIN I < 0.02 NG/ML (< 0.10)
[2020-10-31 06:13] LABS: PARTIAL THROMBOPLASTIN TIME 42.1 SECONDS (24.2-38.5)
[2020-10-31] MEDS: cefTRIAXone SOD 2 GM in D5W MINI-BAG PLUS 50 ML IV SCH (06:13)
[2020-10-31] MEDS: HumaLOG INSULIN (NovoLOG) PER UNIT SC SCH ×4 (08:06→21:33)
[2020-10-31] MEDS: ENOXAPARIN 40MG/0.4ML SYRINGE (J1650 PER 10MG) SC SCH ×2 (08:06→21:32)
[2020-10-31] MEDS: dexameTHASONE 4 MG/ML 1ML VIAL (J1100 PER 1MG) IV SCH (08:07)
[2020-10-31] MEDS: atenoloL 50 MG TAB PO SCH ×2 (08:58→21:32)
--- NOTE | 2020-10-31 12:41 | CCN ---
CRITICAL CARE NOTE DATE: 10/31/2020 SUBJECTIVE: The patient is seen in the intensive care unit on 100% Vapotherm fatigued. He is intolerant of noninvasive positive pressure ventilation. This is hospital day #3, symptom complex day #15. OBJECTIVE: GENERAL APPEARANCE: At bedside, he is ill-appearing and cachectic, but responds. Voice is weak. VITAL SIGNS: Temperature 97, heart rate 80, respirations 26, blood pressure 130/60, saturation is 89% on 100% Vapotherm. INTAKE AND OUTPUT: For the past 24 hours 2460 in, 420 out; since midnight, 300 in and 425 out. NECK: Supple. Jugular veins are difficult to appreciate. They do not appear to be distended. HEART: Sounds are distant, but regular. RESPIRATORY: Breath sounds very diminished bilaterally. Limited air exchange. ABDOMEN: Soft. Bowel sounds appreciated in the right lower quadrant. EXTREMITIES: Show muscle weakness. Pulses are diminished, but palpable. DIAGNOSTIC STUDIES: His white cell count is down slightly at 9.5. Hemoglobin is 13.4, hematocrit 40.5, platelet count 446,000. Differential white cell count shows 85% neutrophils. Sodium 140, potassium 4.0, chloride 105, CO2 of 22, BUN 47, creatinine 1.41, glucose is elevated at 289 range of 231 to 402. His calcium is 8.7 on an albumin of 2. Phosphorus is acceptable at 3. His ferritin is down at 1424. Fibrinogen is up at 718 and CRP is down at 17. His LDH is down at 320. The liver enzymes are AST 19, ALT 25, alkaline phosphatase is 73. Chest imaging from 10/29 was reviewed and shows bilateral infiltrates with some accentuation of the fissure. Heart size appears normal. MICROBIOLOGY STUDIES: Reviewed. His COVID was positive on 10/27/2020. Blood cultures negative x2 on 10/29/2020. MEDICATIONS: On review, he is receiving dexamethasone 6 mg this is day #2. Subcutaneous insulin based on sliding scale. Atenolol 50 mg b.i.d. [place] 350 p.r.n. [place] t.i.d. p.r.n. This is day #2 of ceftriaxone 2 grams q. 24 hours. Lovenox dose is 40 mg q. 12 hours and he is receiving 20 of detemir at bedtime. ASSESSMENT AND PLAN: The primary problem requiring critical attention is COVID pneumonia with hypoxic respiratory failure. The patient is currently on maximal flow rates of Vapotherm. His saturations are borderline, better when he is in the prone posture. I have discussed the case with the bedside nurse and she will encourage proning as much as the patient is able to tolerate. He was unable to tolerate noninvasive ventilation. His symptom complex has been of a duration and places him outside the window of opportunity for antiviral therapy. Inflammatory markers are variable today on day #2 of dexamethasone. I will recheck a chest x-ray tomorrow and we will continue to track inflammatory markers. Hypercoagulable state of COVID pneumonia: The patient is being treated with weight-based Lovenox protocol. There is no clear evidence of thrombosis and he has no active bleeding. Glycemic control is less than optimal. I have discussed this with the attending hospitalist and they will make adjustments to his long-acting insulin. Ulcer prophylaxis will be addressed with Protonix. The patient's condition is critical. Prognosis is guarded. CRITICAL CARE TIME: 87 minutes spent in the provision of bedside critical care and coordination exclusive of any procedure time.
[2020-10-31] MEDS: PANTOPRAZOLE 40MG TAB (PROTONIX) PO SCH (13:12)
--- NOTE | 2020-10-31 15:09 | IPNPDOC ---
Text Note Date of Service The patient was seen on 10/31/20. NOTE SUBJECTIVE: -Continues on vapotherm on 90% FiO2 now PHYSICAL EXAMINATION: VITAL SIGNS: please see below General: NAD, comfortable HEENT: PERRLA, EOMI, sclerae clear. chronic R facial droop s/p resection cholesteatomy Neck: supple, normal ROM, no JVD Respiratory: lungs CTAB, no wheeze, no rales, no crackles, has some rare upper airway transmitted sounds CVS: RRR, normal S1, S2, no murmurs Abdo: soft, no masses, no hepatosplenomegaly, BS+, no rebound tenderness Extremities: no edema, pulses 2+ MSK: no joint deformities, normal ROM Neuro: no focal neuro deficits, moving all 4 extremities, CN3-12 intact. Strength 5/5 in all 4 extremities. Psych: calm, cooperative, AAO x 3 LABORATORY DATA: Reviewed. See below. IMAGING: CXR (10/29/20) Bilateral lower lung infiltrates peripherally. MICROBIOLOGY: Please see below. ASSESSMENT: 70-year-old M with HTN, DM2, CKD III, presenting with progressively worsening shortness of breath, fevers and malaise for the past 2 weeks and admitted to the ICU for acute hypoxic respiratory failure 2/2 covid-19 PNA. . PLAN: #Acute hypoxic respiratory failure 2/2 Covid-19 PNA: - elevated inflammatory markers, D dimer > 3000. CRP 26. - CXR bilateral infiltrates - In ICU on vapotherm - droplet precautions - dexamethasone 6 mg IV daily, day 2 - no remdesivir as out of chronicity window (onset of symptoms 2 weeks) - monitor daily inflammatory labs - given increasing O2 requirement, and rapid decompensation will continue empiric abx for bacterial pna with ceftriaxone - full dose anticoagulation given rapid rise in O2 requirement. - pulmonary consult placed #Lactic acidosis: resolved - s/p 1L NS bolus - f/u blood cultures #DM2 - BG 580 on arrival, LA 2.1. pH > 7.3 --> hyperglycemia resolved with insulin - high risk for DKA/HHS, is hyperglycemic --> will increase levemir to 20u QHS - ISS AC/HS - FSBG AC/HS - hypoglycemia protocol #JONATHAN on CKD - Baseline Cr ~1.4-1.5, increased to 1.95 - s/p gentle IVF - Daily BMP - avoid nephrotoxic agents - med rec shows ibuprofen 800 daily? 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 #chronic back pain - resume home meds, norco DVT ppx: lovenox 40mg q12h Code status: full code Dispo: admission expected to last > 2 midnights. VS,Fishbone, I+O VS, Fishbone, I+O Laboratory Tests 10/30/20 20:59 10/31/20 05:22 Vital Signs Date Time Temp Pulse Resp B/P (MAP) Pulse Ox O2 Delivery O2 Flow Rate FiO2 10/31/20 05:00 69 26 149/63 (91) 89 HVNI-Vapotherm 40.0 100 10/31/20 04:00 97.3 I&O- Last 24 Hours up to 6 AM 10/31/20 06:00 Intake Total 2760 ml Output Total 850 ml Balance 1910 ml LAN HALLMAN MD Oct 31, 2020 09:10
[2020-10-31] MEDS ORDERED: LEVEMIR (INSULIN DETEMIR) 1 UNITS/0.01ML SC SCH (21:00)
[2020-11-01] VITALS (14 sets, daily range): BP systolic 145–198; BP diastolic 67–86
[2020-11-01 05:02] LABS: BASO % 0.2 % (0.0-1.0); EOS % 0.3 % (0.0-3.0); HEMATOCRIT 37.1 % (42.0-52.0); HEMOGLOBIN 12.5 g/dl (13.5-17.5); LYMPH # 0.8 10^3/uL (1.5-5.0); LYMPH % 7.5 % (24.0-44.0); MEAN CORPUSCULAR HEMOGLOBIN 29.8 pg (27.0-33.0); MEAN CORPUSCULAR HGB CONC 33.7 g/dl (32.0-36.5); MEAN CORPUSCULAR VOLUME 88.3 fl (80.0-96.0); MONO # 0.5 10^3/uL (0.0-0.8); MONO % 4.6 % (0.0-5.0); NEUTROPHILS # 8.6 10^3/uL (1.5-8.5); PLATELET COUNT, AUTOMATED 519 10^3/uL (150-450)
[2020-11-01 05:16] LABS: INR 1.04; PROTHROMBIN TIME 13.8 SECONDS (12.5-14.3)
[2020-11-01 05:17] LABS: PARTIAL THROMBOPLASTIN TIME 40.1 SECONDS (24.2-38.5)
[2020-11-01 05:19] LABS: D-DIMER QUANT 2572.27 ng/ml (<500)
[2020-11-01 05:33] LABS: ALT/SGPT 24 U/L (12-78); BILIRUBIN,DIRECT 0.1 MG/DL (0.0-0.2); BILIRUBIN,TOTAL 0.4 MG/DL (0.2-1.0); BLOOD UREA NITROGEN 34 MG/DL (7-18); CALCIUM LEVEL 8.5 MG/DL (8.8-10.2); CARBON DIOXIDE LEVEL 26 MEQ/L (21-32); CHLORIDE LEVEL 104 MEQ/L (98-107); CHOLESTEROL LEVEL 194 MG/DL (< 200); CPK CREATINE PHOSPHOKINASE 40 U/L (39-308); CREATININE FOR GFR 1.23 MG/DL (0.70-1.30); FERRITIN 1370 NG/ML (26-388); GLOMERULAR FILTRATION RATE > 60.0 (>42); GLUCOSE, FASTING 217 MG/DL (70-100); LDH LACTATE DEHYDROGENASE 300 U/L (87-241); MAGNESIUM LEVEL 1.9 MG/DL (1.8-2.4); NT-PRO BNP 1033 PG/ML (<125); PHOSPHORUS LEVEL 2.5 MG/DL (2.5-4.9); POTASSIUM SERUM 3.6 MEQ/L (3.5-5.1); SODIUM LEVEL 137 MEQ/L (136-145); TOTAL PROTEIN 6.8 GM/DL (6.4-8.2); TRIGLYCERIDES LEVEL 176 MG/DL (<150); TROPONIN I < 0.02 NG/ML (< 0.10)
[2020-11-01] MEDS: cefTRIAXone SOD 2 GM in D5W MINI-BAG PLUS 50 ML IV SCH (06:57)
--- NOTE | 2020-11-01 07:57 | REP ---
INDICATION: hypoxemia COMPARISON: 10/29/2020 TECHNIQUE: Portable AP view of the chest FINDINGS: The mediastinum and cardiac silhouette are stable and within normal limits for portable technique. Lung sibley demonstrate stable diffuse subtle reticulonodular interstitial changes with increased opacities primarily involving the left hemithorax. No obvious effusion. No pneumothorax. IMPRESSION: Increased opacities primarily involving the left hemithorax. <Electronically signed by Aaron Hunt > 11/01/20 075
[2020-11-01] MEDS: HumaLOG INSULIN (NovoLOG) PER UNIT SC SCH ×4 (08:08→21:42)
[2020-11-01] MEDS: dexameTHASONE 4 MG/ML 1ML VIAL (J1100 PER 1MG) IV SCH (08:09)
[2020-11-01] MEDS: PANTOPRAZOLE 40MG TAB (PROTONIX) PO SCH (08:09)
[2020-11-01] MEDS: ENOXAPARIN 40MG/0.4ML SYRINGE (J1650 PER 10MG) SC SCH ×2 (08:09→21:41)
[2020-11-01] MEDS: atenoloL 25 MG TAB PO SCH ×2 (08:32→21:40)
--- NOTE | 2020-11-01 11:14 | ECGEPIP ---
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
--- NOTE | 2020-11-01 14:47 | CCN ---
CRITICAL CARE NOTE DATE: 11/01/2020 SUBJECTIVE: The patient is seen in the intensive care unit on Vapotherm high flow oxygen intolerant of noninvasive positive pressure ventilation, but tolerating prone posturing. This is hospital day #4. He has had symptoms for 16 days. OBJECTIVE: VITAL SIGNS: At bedside, his temperature is 97, T-max is 98, pulse rate 80, respirations 21, blood pressure 172/70. His Vapotherm is currently set at 85% achieving a saturation of 93%. INTAKE AND OUTPUT: For the past 24 hours is 1320 in and 1875 out; since midnight, 300 mL in and 175 out. GENERAL APPEARANCE: He is ill-appearing. HEENT: His mucosa are pink. NECK: Supple. No meningismus. HEART: Sounds are regular and somewhat distant. LUNGS: Breath sounds improved today with some crepitant rales in the bases. ABDOMEN: Soft. Bowel sounds in the right lower quadrant. EXTREMITIES: Show some muscle weakness. DIAGNOSTIC STUDIES: His white cell count is up slightly at 10, hemoglobin is mildly diminished at 12.5, hematocrit 37, and platelet count is up to 519,000. Differential white cell count shows 86% neutrophils. The electrolytes are sodium 137, potassium 3.6, chloride 104, CO2 of 26, BUN 34, creatinine 1.23 down from 1.41, glucose is 217. Calcium is 8.5 on an albumin of 2. His phosphorus is 2.5 and magnesium 1.9. Ferritin is down slightly at 1370. His fibrinogen is stable at 718. C-reactive protein is pending. LDH is down slightly at 300. Liver enzymes are acceptable with AST 15 and ALT 24. B-type natriuretic peptide is up slightly from 715 to 1033. Chest imaging shows an increase in consolidation on the left compared to prior imaging studies. Microbiology studies: His blood cultures have been negative x2. He is coughing, but not raising much sputum. We will request a sputum culture if he is able to produce one. MEDICATIONS: On medications review, this is day #3 of dexamethasone, day #3 of ceftriaxone. He is receiving long-acting insulin. Lovenox 40 mg q. 12 hours. ASSESSMENT AND PLAN: The primary problem requiring critical attention is COVID pneumonia with hypoxemia. His saturations are slightly better with Vapotherm and prone posturing. We will attempt to continue reducing the FiO2 today. This is day #3 of dexamethasone. His C-reactive protein is pending, but the remaining inflammatory markers are either stable or falling and we will continue close monitoring. Fluid volume The patient appears euvolemic on physical examination; however, his B-type natriuretic peptide is up slightly. We will close watch intake and output (I&O) as he may need a dose of diuretics. Secondary infectious disease The patient's white count is up slightly. Blood cultures are negative. We will obtain sputum cultures. His chest x-ray shows a left-sided consolidating infiltrate. I will ask nursing to arrange for either prone posturing or right side down posturing, if he is not able to tolerate proning. Hypercoagulable state from COVID The patient has no evidence of hemorrhage nor thrombosis. His coagulation studies are acceptable at this point on the current dose of Lovenox and his D-dimer is down slightly. Deep vein thrombosis (DVT) prophylaxis being addressed with Lovenox. Ulcer prophylaxis being addressed with Protonix. The patient's condition remains critical. Prognosis is guarded. CRITICAL CARE TIME: 97 minutes was spent in the provision of bedside critical care and coordination, exclusive of any procedure times.
--- NOTE | 2020-11-01 14:59 | IPNPDOC ---
Text Note Date of Service The patient was seen on 11/01/20. NOTE SUBJECTIVE: -Continues on vapotherm on now on 80% FiO2 -HD, afebrile PHYSICAL EXAMINATION: VITAL SIGNS: please see below General: NAD, comfortable HEENT: PERRLA, EOMI, sclerae clear. chronic R facial droop s/p resection cholesteatomy Neck: supple, normal ROM, no JVD Respiratory: lungs CTAB, no wheeze, no rales, no crackles, has some rare upper airway transmitted sounds CVS: RRR, normal S1, S2, no murmurs Abdo: soft, no masses, no hepatosplenomegaly, BS+, no rebound tenderness Extremities: no edema, pulses 2+ MSK: no joint deformities, normal ROM Neuro: no focal neuro deficits, moving all 4 extremities, CN3-12 intact. Strength 5/5 in all 4 extremities. Psych: calm, cooperative, AAO x 3 LABORATORY DATA: Reviewed. See below. IMAGING: CXR 11/01/20: The mediastinum and cardiac silhouette are stable and within normal limits for portable technique. Lung sibley demonstrate stable diffuse subtle reticulonodular interstitial changes with increased opacities primarily involving the left hemithorax. No obvious effusion. No pneumothorax. IMPRESSION: Increased opacities primarily involving the left hemithorax. CXR (10/29/20) Bilateral lower lung infiltrates peripherally. MICROBIOLOGY: Please see below. ASSESSMENT: 70-year-old M with HTN, DM2, CKD III, presenting with progressively worsening shortness of breath, fevers and malaise for the past 2 weeks and adm itted to the ICU for acute hypoxic respiratory failure 2/2 covid-19 PNA. . PLAN: #Acute hypoxic respiratory failure 2/2 Covid-19 PNA with possible superimposed bacterial PNA: - elevated inflammatory markers, D dimer > 3000. CRP 26. - CXR bilateral infiltrates - In ICU on vapotherm - droplet precautions - dexamethasone 6 mg IV daily, day 3 - no remdesivir as out of chronicity window (onset of symptoms 2 weeks) - monitor daily inflammatory labs - given increasing O2 requirement, and rapid decompensation will continue empiric abx for bacterial pna with ceftriaxone - full dose anticoagulation given rapid rise in O2 requirement. - pulmonary consult placed - day 2 of CFX for likely superimposed bacterial PNA with worsening CXR and elevated procalcitonin. f/u SCx - protonix for GI ppx #Lactic acidosis: resolved - s/p 1L NS bolus - f/u blood cultures #DM2 - BG 580 on arrival, LA 2.1. pH > 7.3 --> hyperglycemia resolved with insulin - high risk for DKA/HHS, increase levemir to 25u QHS - ISS AC/HS - FSBG AC/HS - hypoglycemia protocol #JONATHAN on CKD - Baseline Cr ~1.4-1.5, increased to 1.95 - s/p gentle IVF - Daily BMP - avoid nephrotoxic agents - med rec shows ibuprofen 800 daily? 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 #chronic back pain - cont home meds, norco DVT ppx: lovenox 40mg q12h Code status: full code Dispo: admission expected to last > 2 midnights. VS,Fishbone, I+O VS, Fishbone, I+O Laboratory Tests 11/01/20 04:55 Vital Signs Date Time Temp Pulse Resp B/P (MAP) Pulse Ox O2 Delivery O2 Flow Rate FiO2 11/01/20 08:32 80 172/70 11/01/20 06:00 21 93 HVNI-Vapotherm 40.0 85 11/01/20 04:00 97.3 I&O- Last 24 Hours up to 6 AM 11/01/20 06:00 Intake Total 1320 ml Output Total 1625 ml Balance -305 ml LAN HALLMAN MD Nov 01, 2020 08:37
[2020-11-01] MEDS ORDERED: LEVEMIR (INSULIN DETEMIR) 1 UNITS/0.01ML SC SCH (21:00)
[2020-11-02] VITALS: BP 166/79
[2020-11-02 03:44] LABS: BASO % 0.1 % (0.0-1.0); EOS # 0.1 10^3/uL (0.0-0.5); EOS % 0.6 % (0.0-3.0); HEMATOCRIT 40.3 % (42.0-52.0); LYMPH # 0.6 10^3/uL (1.5-5.0); LYMPH % 7.4 % (24.0-44.0); MEAN CORPUSCULAR HEMOGLOBIN 30.8 pg (27.0-33.0); MEAN CORPUSCULAR HGB CONC 34.7 g/dl (32.0-36.5); MEAN CORPUSCULAR VOLUME 88.8 fl (80.0-96.0); MONO # 0.4 10^3/uL (0.0-0.8); NEUTROPHILS # 6.9 10^3/uL (1.5-8.5); NEUTROPHILS % 85.4 % (36.0-66.0); PLATELET COUNT, AUTOMATED 458 10^3/uL (150-450); RED BLOOD COUNT 4.54 10^6/uL (4.30-6.10); WHITE BLOOD COUNT 8.1 10^3/uL (4.0-10.0)
[2020-11-02 03:57] LABS: INR 1.16; PROTHROMBIN TIME 15.1 SECONDS (12.5-14.3)
[2020-11-02 03:58] LABS: PARTIAL THROMBOPLASTIN TIME 41.8 SECONDS (24.2-38.5)
[2020-11-02 04:00] VITALS: BP 121/61
[2020-11-02 04:01] LABS: D-DIMER QUANT 3267.76 ng/ml (<500)
[2020-11-02 04:13] LABS: ALT/SGPT 22 U/L (12-78); BILIRUBIN,DIRECT 0.2 MG/DL (0.0-0.2); BILIRUBIN,TOTAL 0.4 MG/DL (0.2-1.0); BLOOD UREA NITROGEN 28 MG/DL (7-18); CALCIUM LEVEL 8.6 MG/DL (8.8-10.2); CARBON DIOXIDE LEVEL 24 MEQ/L (21-32); CHLORIDE LEVEL 105 MEQ/L (98-107); CHOLESTEROL LEVEL 188 MG/DL (< 200); CPK CREATINE PHOSPHOKINASE 40 U/L (39-308); CREATININE FOR GFR 1.16 MG/DL (0.70-1.30); FERRITIN 1362 NG/ML (26-388); GLOMERULAR FILTRATION RATE > 60.0 (>42); GLUCOSE, FASTING 207 MG/DL (70-100); LDH LACTATE DEHYDROGENASE 348 U/L (87-241); MAGNESIUM LEVEL 1.9 MG/DL (1.8-2.4); NT-PRO BNP 2170 PG/ML (<125); PHOSPHORUS LEVEL 2.7 MG/DL (2.5-4.9); POTASSIUM SERUM 3.6 MEQ/L (3.5-5.1); SODIUM LEVEL 136 MEQ/L (136-145); TOTAL PROTEIN 6.8 GM/DL (6.4-8.2); TRIGLYCERIDES LEVEL 153 MG/DL (<150); TROPONIN I < 0.02 NG/ML (< 0.10)
[2020-11-02] MEDS: cefTRIAXone SOD 2 GM in D5W MINI-BAG PLUS 50 ML IV SCH (06:12)
[2020-11-02 08:00] VITALS: BP_SYST 104; BP_SYST 184; BP_DIAS 77
[2020-11-02] MEDS: atenoloL 25 MG TAB PO SCH ×2 (08:19→20:27)
[2020-11-02] MEDS: PANTOPRAZOLE 40MG TAB (PROTONIX) PO SCH (08:19)
[2020-11-02] MEDS: HumaLOG INSULIN (NovoLOG) PER UNIT SC SCH ×4 (08:20→20:27)
[2020-11-02] MEDS: ENOXAPARIN 40MG/0.4ML SYRINGE (J1650 PER 10MG) SC SCH ×2 (08:20→20:26)
[2020-11-02] MEDS ORDERED: FUROSEMIDE 40MG/4ML VIAL (J1940) IV ONE (11:30)
[2020-11-02] MEDS: dexameTHASONE 20MG/5ML VIAL (J1100 PER 1MG) IV SCH (11:33)
[2020-11-02 12:00] VITALS: BP 170/83
--- NOTE | 2020-11-02 15:43 | IPNPDOC ---
Text Note Date of Service The patient was seen on 11/02/20. NOTE SUBJECTIVE: -Continues on vapotherm now on 75% FiO2 -HD, afebrile PHYSICAL EXAMINATION: VITAL SIGNS: please see below General: NAD, comfortable HEENT: PERRLA, EOMI, sclerae clear. chronic R facial droop s/p resection cholesteatomy Neck: supple, normal ROM, no JVD Respiratory: lungs CTAB, no wheeze, no rales, no crackles, has some rare upper airway transmitted sounds CVS: RRR, normal S1, S2, no murmurs Abdo: soft, no masses, no hepatosplenomegaly, BS+, no rebound tenderness Extremities: no edema, pulses 2+ MSK: no joint deformities, normal ROM Neuro: no focal neuro deficits, moving all 4 extremities, CN3-12 intact. Strength 5/5 in all 4 extremities. Psych: calm, cooperative, AAO x 3 LABORATORY DATA: Reviewed. See below. IMAGING: CXR 11/01/20: The mediastinum and cardiac silhouette are stable and within normal limits for portable technique. Lung sibley demonstrate stable diffuse subtle reticulonodular interstitial changes with increased opacities primarily involving the left hemithorax. No obvious effusion. No pneumothorax. IMPRESSION: Increased opacities primarily involving the left hemithorax. CXR (10/29/20) Bilateral lower lung infiltrates peripherally. MICROBIOLOGY: Please see below. ASSESSMENT: 70-year-old M with HTN, DM2, CKD III, presenting with progressively worsening shortness of breath, fevers and malaise for the past 2 weeks and admit enrico to the ICU for acute hypoxic respiratory failure 2/2 covid-19 PNA. . PLAN: #Acute hypoxic respiratory failure 2/2 Covid-19 PNA with possible superimposed bacterial PNA: - elevated inflammatory markers, D dimer > 3000. CRP 26. Trending. - CXR bilateral infiltrates - In ICU on vapotherm - droplet precautions - dexamethasone 6 mg IV daily, day 3 - no remdesivir as out of chronicity window (onset of symptoms 2 weeks) - monitor daily inflammatory labs - given increasing O2 requirement, and rapid decompensation will continue empiric abx for bacterial pna with ceftriaxone - full dose anticoagulation given rapid rise in O2 requirement. - pulmonary consult placed - day 3 of CFX for likely superimposed bacterial PNA with worsening CXR and elevated procalcitonin. f/u SCx with some GPCs in pairs, chains and clusters per gram stain - protonix for GI ppx #Lactic acidosis: resolved - s/p 1L NS bolus - f/u blood cultures, NGTD #DM2 - BG 580 on arrival, LA 2.1. 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 #chronic back pain - cont home meds, norco DVT ppx: lovenox 40mg q12h Code status: full code Dispo: ICU on vapotherm VS,Fishbone, I+O VS, Fishbone, I+O Laboratory Tests 11/02/20 03:29 Vital Signs Date Time Temp Pulse Resp B/P (MAP) Pulse Ox O2 Delivery O2 Flow Rate FiO2 11/02/20 04:00 96.9 75 18 121/61 (81) 96 HVNI-Vapotherm 40.0 75 l I&O- Last 24 Hours up to 6 AM 11/02/20 06:00 Intake Total 1090 ml Output Total 1050 ml Balance 40 ml LAN HALLMAN MD Nov 02, 2020 08:19
[2020-11-02 16:00] VITALS: BP 132/58
[2020-11-02 20:00] VITALS: BP 143/70
[2020-11-02] MEDS: LEVEMIR (INSULIN DETEMIR) 1 UNITS/0.01ML SC SCH (20:28)
[2020-11-03 00:04] VITALS: BP 144/67
[2020-11-03 04:08] VITALS: BP 148/72
[2020-11-03 05:18] LABS: BASO % 0.3 % (0.0-1.0); EOS # 0.1 10^3/uL (0.0-0.5); EOS % 0.6 % (0.0-3.0); HEMATOCRIT 40.3 % (42.0-52.0); HEMOGLOBIN 13.7 g/dl (13.5-17.5); LYMPH # 0.7 10^3/uL (1.5-5.0); LYMPH % 7.4 % (24.0-44.0); MEAN CORPUSCULAR HEMOGLOBIN 29.8 pg (27.0-33.0); MEAN CORPUSCULAR VOLUME 87.8 fl (80.0-96.0); MONO # 0.6 10^3/uL (0.0-0.8); MONO % 6.3 % (0.0-5.0); NEUTROPHILS # 7.3 10^3/uL (1.5-8.5); NEUTROPHILS % 83.6 % (36.0-66.0); PLATELET COUNT, AUTOMATED 468 10^3/uL (150-450); RED BLOOD COUNT 4.59 10^6/uL (4.30-6.10); WHITE BLOOD COUNT 8.7 10^3/uL (4.0-10.0)
[2020-11-03 05:37] LABS: INR 1.18; PROTHROMBIN TIME 15.2 SECONDS (12.5-14.3)
[2020-11-03 05:39] LABS: PARTIAL THROMBOPLASTIN TIME 42.6 SECONDS (24.2-38.5)
[2020-11-03 05:41] LABS: D-DIMER QUANT 3885.32 ng/ml (<500)
[2020-11-03 05:51] LABS: BILIRUBIN,DIRECT 0.1 MG/DL (0.0-0.2); BILIRUBIN,TOTAL 0.4 MG/DL (0.2-1.0); C REACTIVE PROTEIN QUANTITATIV 18.9 MG/DL (0.00-0.30); CALCIUM LEVEL 8.6 MG/DL (8.8-10.2); CREATININE FOR GFR 1.28 MG/DL (0.70-1.30); PHOSPHORUS LEVEL 3.4 MG/DL (2.5-4.9); POTASSIUM SERUM 3.6 MEQ/L (3.5-5.1)
[2020-11-03] MEDS: cefTRIAXone SOD 2 GM in D5W MINI-BAG PLUS 50 ML IV SCH (06:09)
[2020-11-03 08:00] VITALS: BP 136/63
--- NOTE | 2020-11-03 08:56 | CCN ---
CRITICAL CARE NOTE DATE: 11/02/2020 SUBJECTIVE: The patient is seen in the intensive care unit hypoxemic on Vapotherm, unable to tolerate noninvasive positive pressure ventilation. This is hospital day #2. Patient has had symptoms for a more protracted time with symptom day #17. He is fairly comfortable despite low oxygen saturations. OBJECTIVE: VITAL SIGNS: Temperature 97, T-max for the past 24 hours 98, pulse is 82, respirations 20, blood pressure 121/61. Saturation 96% on 75% Vapotherm. INTAKE AND OUTPUT: For the past 24 hours 1030 in, 1225 out; since midnight 420 in, 100 out. GENERAL APPEARANCE: At bedside, he is ill-appearing. He is not in acute distress. HEENT: His oral mucosa is pink. NECK: Supple. Jugular veins are difficult to appreciate. The carotid upstroke is palpable bilaterally. HEART: Sounds are regular without appreciable murmur. LUNGS: Breath sounds are diminished globally with coarse rales in the bases bilaterally. ABDOMEN: Soft. Bowel sounds in the right lower quadrant. EXTREMITIES: Cool. Pulses diminished. There is some edema. DIAGNOSTIC STUDIES: His white cell count is down to 8.1, hemoglobin is 14, hematocrit 40.3, platelet count 453,000. Differential white cell count showed 85.4% neutrophils. The electrolytes are sodium 136, potassium 3.6, chloride 105, CO2 of 24, BUN 28, creatinine 1.16, glucose 207. His calcium is 8.6, albumin is 2. Ferritin is down slightly at 1362. Fibrinogen is up slightly at 745. CRP is down at 15.9 and the LDH is up at 348. AST is 16, ALT 22. BNP is further increased today at 2170. Microbiology studies: His sputum studies show gram-positive cocci. MEDICATIONS: On review, this is day #4 of ceftriaxone, day #4 of dexamethasone. He is receiving Protonix 40 mg a day and pain medications. Lovenox is 40 mg q. 12 hours. ASSESSMENT AND PLAN: The primary problem requiring critical attention is hypoxic respiratory failure secondary to COVID pneumonia. Inflammatory markers are mixed. We will continue with dexamethasone. Fluid volume His B-type natriuretic peptide is up and there is some edema on examination. I will give him a single dose of Lasix today and follow electrolytes and urine output. Secondary infectious disease His white cell count is down. Sputum is showing gram-positive and culture is pending. Will continue with ceftriaxone. Hypercoagulable state related to COVID He is on weight-based Lovenox. Deep vein thrombosis (DVT) prophylaxis is in place. Ulcer prophylaxis is in place. The patient's condition remains critical. Prognosis is guarded. CRITICAL CARE TIME: 127 minutes was spent in the provision of bedside critical care and coordination exclusive of any procedure time. DENNIS
[2020-11-03] MEDS: dexameTHASONE 20MG/5ML VIAL (J1100 PER 1MG) IV SCH (09:02)
[2020-11-03] MEDS: ENOXAPARIN 40MG/0.4ML SYRINGE (J1650 PER 10MG) SC SCH ×2 (09:03→21:29)
[2020-11-03] MEDS: HumaLOG INSULIN (NovoLOG) PER UNIT SC SCH ×4 (09:04→21:00)
[2020-11-03] MEDS: atenoloL 25 MG TAB PO SCH ×2 (09:04→21:29)
[2020-11-03] MEDS: PANTOPRAZOLE 40MG TAB (PROTONIX) PO SCH (09:04)
[2020-11-03] MEDS: IPRATROPIUM 0.5MG/ALBUTEROL 2.5MG INH SOL UD 3ML (DUONEB) NEB SCH ×3 (09:58→20:18)
[2020-11-03 12:00] VITALS: BP 162/77
--- NOTE | 2020-11-03 12:33 | CCN ---
CRITICAL CARE NOTE DATE: 11/03/2020 SUBJECTIVE: The patient is seen in the intensive care unit on Vapotherm therapy and unable to tolerate noninvasive ventilation. He had an episode of confusion last evening and his saturations fell precipitously. OBJECTIVE: VITAL SIGNS: At bedside, his temperature is 97, pulse rate 74, respirations 20, blood pressure 148/72, 100% oxygen is yielding a saturation of 95%. INTAKE AND OUTPUT: For the past 24 hours 1070 in, 1300 out; since midnight 220 in and 600 out. GENERAL APPEARANCE: He is ill-appearing and cachectic. HEENT: His mucosa are moist. NECK: Supple. Jugular veins are difficult to appreciate. Carotid upstroke is palpable. HEART: Sounds are regular without appreciable murmur. LUNGS: Breath sounds are diminished. There are some large airway rhonchi appreciated and some basilar crepitance. ABDOMEN: Soft. EXTREMITIES: Show no significant deformity. There are multiple ecchymosis. Pulses are palpable x4. DIAGNOSTIC STUDIES: His white cell count is 8.7, hemoglobin 13.7, hematocrit 40.3, platelet count 468,000. Differential white cell count shows 83.6% neutrophils. The electrolytes are sodium 136, potassium 3.6, chloride 102, CO2 of 23, BUN 32, creatinine is up slightly at 1.28, glucose 179. His AST is 14 and ALT 21. Inflammatory markers: His ferritin is up at 1556. Fibrinogen is down some at 702. His C-reactive protein is up at 18.9 and his LDH is down slightly at 330. BNP remains elevated at 2054. PT is 15, PTT 42. There were no new imaging studies. Sputum studies show good quality, yeast-like organisms, and moderate gram-positives. ASSESSMENT AND PLAN: The primary problem requiring critical attention is acute hypoxic respiratory failure related to COVID pneumonia. Oxygen requirement remains very high. His inflammatory markers are mixed so we will continue on dexamethasone. Given the abnormal breath sounds appreciated today, we will add nebulizer therapy. Fluid volume status is difficult to assess. His BMP remains elevated and he did respond diuretics yesterday. I will recheck his numbers in the morning and consider additional diuretics. Secondary infectious disease White cell count is stable. He has had no fever. We will continue with empiric for cephalosporin for 10 days based on the sputum gram stain. Hypercoagulable state related to COVID There is no evidence of hemorrhage or thrombosis. He is on weight-based Lovenox and his coagulation studies are acceptable. Deep vein thrombosis (DVT) Protonix is in place with Lovenox. Ulcer prophylaxis in place with Protonix. The patient's condition remains critical. Prognosis is guarded. CRITICAL CARE TIME: 97 minutes was spent in the provision of bedside critical care and coordination, exclusive of any procedure time.
--- NOTE | 2020-11-03 14:03 | IPNPDOC ---
Date Seen The patient was seen on 11/03/20. Progress Note SUBJECTIVE: Patient was seen and examined at the bedside this morning. He was found to be laying on his right side as instructed by staff. He states he feels better this morning. He is not having any worsened shortness of breath. He is currently on 40 L high flow oxygen with 100% FiO2. He seems comfortable. He states he is not having any worsened shortness of breath when he is laying down, only when he tries to get up. He does report dry mouth and some intermittent coughing that is nonproductive. No issues reported by nursing from overnight. OBJECTIVE PHYSICAL EXAMINATION: VITAL SIGNS: see below GENERAL: alert and oriented, in no apparent distress, pleasant and conversant in full sentences. HEENT: PERRL, EOMI, Oral mucous membranes are moist without lesions. NECK: The patient has no noted JVD. No adenopathy is appreciated. No thyromegaly CHEST/LUNGS: There is decrease in breath sounds at the bases bilaterally with some scattered rhonchi and upper airway transmitted sounds HEART:Regular rate and rhythm. No murmurs, rubs, or gallops are appreciated. Distal pulses are 2+. No carotid bruits appreciated. ABDOMEN: Soft, nontender, and nondistended. Bowel sounds are positive. No or ganomegaly is appreciated. No masses are appreciated. There are no peritoneal signs. There is no [place] sign. EXTREMITIES: No peripheral edema. There is no focal long bone tenderness or deformity. SKIN: The patients skin is warm and dry, without rashes or lesions. PSYCHIATRIC: AAO x 3, normal mood/affect NEUROLOGIC: There is chronic right facial droop present. No obvious other focal deficits LABORATORY DATA, IMAGING STUDIES, MICROBIOLOGY: Please see below. Echocardiogram: None ASSESSMENT AND PLAN: This is a 70-year-old male with history of hypertension and type 2 diabetes, CKD 3 who presented with progressively worsening shortness of breath, fevers, malaise started 2 weeks ago (this is symptom day #18) now admitted to the ICU found to be in acute hypoxic respiratory failure secondary to COVID19 pneumonia PROBLEMS: 1. Acute hypoxic respiratory failure 2/2 COVID19 PNA: -Patient is saturating well but has maxed out on 40 L high flow nasal cannula and 100% FiO2. -Inflammatory markers worsened today: CRP increased to 18.9, ferritin increased to 1556, D dimer increased to 3885, BNP remains increased at 2,054 -Last AB.375/28.6/62.4 on 10/29/2020 indicating acute hypoxemia -Pro calcitonin pending for today although has decreased in the past 2 days -Continue dexamethasone 6 mg IV every 24 hours, this is day 5 out of 10 -Continue Protonix for GI protection -Fluid status appears to be euvolemic. No need for IV Lasix at this time. One dose IV Lasix given yesterday. -Appreciate recommendations of ICU team. Patient may require intubation in the near future if oxygenation status does not improve. To my knowledge, the patient refused BiPAP previously. 2. ? Superimposed community-acquired bacterial pneumonia: -Sputum culture grew yeast-like organism -Continue empiric ceftriaxone, day 5 3. Lactic acidosis on admission: -Resolved 4. Type 2 diabetes, insulin-dependent: Complicated by -Blood sugars very labile likely from dexamethasone administration. -Continue sliding scale insulin with hypoglycemic protocol -Blood sugar this morning 167, will not make changes to regimen at this time -Continue Levemir 30 units daily at bedtime 5. JONATHAN on CKD: Appears to have resolved -Creatinine today 1.28, which appears to be his baseline 6. Hypertension: BP noted to be within normal limits -Continue atenolol 7. Chronic back pain: -Continue [place] DVT prophylaxis ordered?: Lovenox 40 mg every 12 hours DISPOSITION: Patient is full code. Continue co-management with ICU team. Pending improvement in oxygenation. [facility] Vital Signs Date Time Temp Pulse Resp B/P (MAP) Pulse Ox O2 Delivery O2 Flow Rate FiO2 11/03/20 09:04 74 136/63 11/03/20 08:37 95 HVNI-Vapotherm 40.0 100 11/03/20 04:08 97.0 20 I&O- Last 24 Hours up to 6 AM 11/03/20 06:00 Intake Total 710 ml Output Total 1800 ml Balance -1090 ml Laboratory Data 24H LABS Laboratory Tests 2 11/02/20 17:11: Bedside Glucose (Misc Panel) 243H 11/02/20 20:25: Bedside Glucose (Misc Panel) 369H 11/03/20 04:44: Immature Granulocyte % (Auto) 1.8, Neutrophils (%) (Auto) 83.6H, Lymphocytes (%) (Auto) 7.4L, Monocytes (%) (Auto) 6.3H, Eosinophils (%) (Auto) 0.6, Basophils (%) (Auto) 0.3, Neutrophils # (Auto) 7.3, Lymphocytes # (Auto) 0.7L, Monocytes # (Auto) 0.6, Eosinophils # (Auto) 0.1, Basophils # (Auto) 0.0, Nucleated Red Blood Cells % (auto) 0.0, Prothrombin Time 15.2H, Prothromb Time International Ratio 1.18, Activated Partial Thromboplast Time 42.6H, Fibrinogen 702H, D-Dimer, Quantitative 3885.32H, Anion Gap 11, Glomerular Filtration Rate 59.0, Calcium Level 8.6L, Phosphorus Level 3.4#, Magnesium Level 2.0, Ferritin 1556H, Total Bilirubin 0.4, Direct Bilirubin 0.1, Aspartate Amino Transf (AST/SGOT) 14, Alanine Aminotransferase (ALT/SGPT) 21, Alkaline Phosphatase 73, Lactate Dehydrogenase 330H, Total Creatine Kinase 28L, C-Reactive Protein, Quantitative 18.90H, HO-Hkk-G-Type Natriuretic Peptide 2054H, Total Protein 7.0, Albumin 2.0L, Albumin/Globulin Ratio 0.4, Triglycerides Level 121, Cholesterol Level 183 11/03/20 08:04: Bedside Glucose (Misc Panel) 170H 11/03/20 12:09: Bedside Glucose (Misc Panel) 167H CBC/BMP Laboratory Tests 11/03/20 04:44 Microbiology Microbiology 11/01/20 Gram Stain - Final, Complete 11/01/20 Sputum Culture - Final, Complete Yeast Like Organism 10/29/20 Blood Culture - Preliminary, Resulted No Growth after 72 hours. All specime... 10/29/20 Blood Culture - Preliminary, Resulted No Growth after 72 hours. All specime... GME ATTESTATION GME ATTESTATION My faculty preceptor for this patient encounter was physically present during the encounter and was fully available. All aspects of the patient interview, examination, medical decision making process, and medical care plan development were reviewed and approved by the faculty preceptor. The faculty preceptor is aware and concurs with the plan as stated in the body of this note and will attest to such by his/her cosignature. ATTENDING NOTE Patient remains stably severely hypoxemic requiring 80-100% FiO2 on vapotherm with episodic uptitration to 100%. Pulm is following closely with PRN diuretics, empiric antibiotics and steroids on board. The rest of the plan is as detailed in Dr. Jerry's note. JUMA JERRY MD Nov 03, 2020 12:56 LAN HALLMAN MD Nov 03, 2020 15:28
[2020-11-03 17:00] VITALS: BP 168/81
[2020-11-03 21:00] VITALS: BP 139/75
[2020-11-03] MEDS: LEVEMIR (INSULIN DETEMIR) 1 UNITS/0.01ML SC SCH (21:30)
[2020-11-04] VITALS (7 sets, daily range): BP systolic 149–193; BP diastolic 73–88
[2020-11-04] MEDS: IPRATROPIUM 0.5MG/ALBUTEROL 2.5MG INH SOL UD 3ML (DUONEB) NEB SCH ×5 (02:59→20:41)
[2020-11-04 05:54] LABS: ALBUMIN 1.9 GM/DL (3.2-5.2); ALT/SGPT 25 U/L (12-78); BILIRUBIN,TOTAL 0.4 MG/DL (0.2-1.0); BLOOD UREA NITROGEN 31 MG/DL (7-18); CALCIUM LEVEL 8.8 MG/DL (8.8-10.2); CARBON DIOXIDE LEVEL 24 MEQ/L (21-32); CHLORIDE LEVEL 103 MEQ/L (98-107); CHOLESTEROL LEVEL 157 MG/DL (< 200); CPK CREATINE PHOSPHOKINASE 31 U/L (39-308); CREATININE FOR GFR 1.16 MG/DL (0.70-1.30); GLOMERULAR FILTRATION RATE > 60.0 (>42); GLUCOSE, FASTING 132 MG/DL (70-100); LDH LACTATE DEHYDROGENASE 297 U/L (87-241); PHOSPHORUS LEVEL 2.6 MG/DL (2.5-4.9); POTASSIUM SERUM 3.2 MEQ/L (3.5-5.1); SODIUM LEVEL 135 MEQ/L (136-145); TOTAL PROTEIN 7.7 GM/DL (6.4-8.2); TRIGLYCERIDES LEVEL 144 MG/DL (<150)
[2020-11-04] MEDS: cefTRIAXone SOD 2 GM in D5W MINI-BAG PLUS 50 ML IV SCH (06:11)
[2020-11-04] MEDS ORDERED: POTASSIUM CHLORIDE 10 MEQ SR TABLET PO ONE (07:15)
[2020-11-04] MEDS: HumaLOG INSULIN (NovoLOG) PER UNIT SC SCH ×4 (07:30→21:04)
[2020-11-04] MEDS: PANTOPRAZOLE 40MG TAB (PROTONIX) PO SCH (08:51)
[2020-11-04] MEDS: atenoloL 25 MG TAB PO SCH ×2 (08:52→21:05)
[2020-11-04] MEDS: ENOXAPARIN 40MG/0.4ML SYRINGE (J1650 PER 10MG) SC SCH ×2 (08:52→21:03)
[2020-11-04] MEDS: dexameTHASONE 20MG/5ML VIAL (J1100 PER 1MG) IV SCH (09:56)
--- NOTE | 2020-11-04 12:07 | CCN ---
CRITICAL CARE NOTE DATE: 11/04/2020 SUBJECTIVE: The patient is seen in the intensive care unit critically ill with hypoxemia requiring high-flow oxygen via Vapotherm at high concentrations. This is hospital day #7. The patient has had symptoms for 21 days and has been maintained on Vapotherm for seven days. The patient is intolerant of noninvasive positive pressure ventilation. Saturations are borderline with Vapotherm at high-flow rates. He is cooperative with nursing and is participating in proning. Coughing was noted yesterday with sputum production. This has been facilitated by the use of nebulized therapy and he is raising more secretions. OBJECTIVE: At bedside, his temperature is 97.1. There has been no fever. Heart rate 80, respirations 20, blood pressure 182/80, and oxygen flow rate with 80% oxygen is yielding a saturation of 91%. INTAKE AND OUTPUT: For the past 24 hours 1530 in and 1500 out; since midnight, however, 480 in and 725 out. GENERAL APPEARANCE: He is ill-appearing and somewhat cachectic. NECK: Supple. There is no jugular venous distention or carotid bruit. HEART: Sounds are regular without appreciable murmur. LUNGS: Breath sounds are diminished, but improved over yesterday. There are some crepitant rales in the bases. ABDOMEN: Soft with intact bowel sounds right lower quadrant. EXTREMITIES: Cool. Pulses are palpable. SKIN: There are no new skin changes. DIAGNOSTIC STUDIES: His white cell count is 8.7, hemoglobin 13.7, hematocrit 40.3, platelet count 468,000. Differential white cell count shows 83.6 neutrophils. The electrolytes are sodium 135, potassium down at 3.2, chloride 103, CO2 of 24, BUN 31, creatinine 1.16, glucose 132, calcium 8.8 on an albumin of 1.9. His AST is 21 and ALT 25. Inflammatory markers: His LDH is down at 297. His C-reactive protein is down at 13.1. D-dimer is down at 3629. MEDICATIONS: On review, he is receiving DuoNebs now q. 6 hours, insulin coverage, Protonix 40 mg a day, Lovenox 40 mg q. 12 hours, ceftriaxone 2 grams q. 24 hours. ASSESSMENT AND PLAN: The primary problem requiring critical attention is hypoxic respiratory failure secondary to COVID pneumonia. His oxygen need has remained quite high. We will continue his Vapotherm and prone posturing. The patient's inflammatory markers are some better. He is on dexamethasone. His presentation was too late to justify the use of remdesivir. He has not received tocilizumab. We will continue monitoring inflammatory markers to determine if this would be helpful. Secondary infectious disease; at this point, the patient has no fever and white cellulitis count is acceptable. His procalcitonin is down. We will obtain a sputum study for culture and plan to stop the ceftriaxone tomorrow. Hypokalemia/hypophosphatemia; we will replace and recheck these. Procoagulant state of COVID infection; the patient is receiving weight-based Lovenox. There is no evidence of hemorrhage or thrombosis. His D-dimer is within acceptable range. We will continue monitoring coagulation studies and weight-based anticoagulation therapy. The patient's condition remains critical. Prognosis is very guarded. CRITICAL CARE TIME: 97 minutes was spent in the provision of bedside critical care and coordination, exclusive of any procedure time.
--- NOTE | 2020-11-04 12:28 | IPNPDOC ---
Date Seen The patient was seen on 11/04/20. Progress Note SUBJECTIVE: Patient was seen and examined at the bedside this morning. He has no complaints this morning and states he was able to sleep well. He is not coughing and denies any worsened shortness of breath. He was able to be titrated down from 100% FiO2 to 80% but still requires 40L on Vapotherm. He appears comfortable. Nursing reports no issues overnight and states patient has been proning successfully. Of note, patient has not had bowel movement on this admission and requests bowel regimen. OBJECTIVE PHYSICAL EXAMINATION: VITAL SIGNS: see below GENERAL: alert and oriented, in no apparent distress, pleasant and conversant in full sentences. HEENT: PERRL, EOMI, Oral mucous membranes are moist without lesions. NECK: The patient has no noted JVD. No adenopathy is appreciated. No thyromegaly CHEST/LUNGS: There is decrease in breath sounds at the bases bilaterally with some scattered rhonchi and upper airway transmitted sounds HEART:Regular rate and rhythm. No murmurs, rubs, or gallops are appreciated. Distal pulses are 2+. No carotid bruits appreciated. ABDOMEN: Soft, nontender, and nondistended. Bowel sounds are positive. No organomegaly is appreciated. No masses are appreciated. There are no peritoneal signs. There is no [place] sign. EXTREMITIES: No peripheral edema. There is no focal long bone tenderness or deformity. SKIN: The patients skin is warm and dry, without rashes or lesions. PSYCHIATRIC: AAO x 3, normal mood/affect NEUROLOGIC: There is chronic right facial droop present. No obvious other focal deficits LABORATORY DATA, IMAGING STUDIES, MICROBIOLOGY: Please see below. Echocardiogram: None ASSESSMENT AND PLAN: This is a 70-year-old male with history of hypertension and type 2 diabetes, CKD 3 who presented with progressively worsening shortness of breath, fevers, malaise started 2 weeks ago (this is symptom day #19) now admitted to the ICU found to be in acute hypoxic respiratory failure secondary to COVID19 pneumonia PROBLEMS: 1. Acute hypoxic respiratory failure 2/2 COVID19 PNA: -Patient is saturating well on 40 L high flow nasal cannula and recently titrated down to 85% FiO2. -Inflammatory markers: LDH down to 297 today, CRP down to 13.1, procal last measured at 0.20, d-dimer stable at 3629 -Last AB.375/28.6/62.4 on 10/29/2020 indicating acute hypoxemia -Continue dexamethasone 6 mg IV every 24 hours, this is day 6 -Continue Protonix for GI protection -Fluid status appears to be euvolemic. No need for IV Lasix at this time. -Appreciate recommendations of ICU team. Patient may require intubation if oxygenation status does not improve. To my knowledge, the patient refused BiPAP previously. 2. Superimposed community-acquired bacterial pneumonia: -Procalcitonin elevated at 0.20 -Sputum culture grew yeast-like organism -Continue empiric ceftriaxone, day 6 3. Lactic acidosis on admission: -Resolved 4. Type 2 diabetes, insulin-dependent: Complicated by -Blood sugars very labile likely from dexamethasone use. -Continue sliding scale insulin with hypoglycemic protocol -Blood sugar this morning 132, will not make changes to regimen at this time -Continue Levemir 30 units daily at bedtime 5. JONATHAN on CKD: Appears to have resolved -Creatinine today 1.16, which appears to be his baseline 6. Hypertension: BP noted to be within normal limits -Continue atenolol 7. Chronic back pain: -Continue [place] DVT prophylaxis ordered?: Lovenox 40 mg every 12 hours DISPOSITION: Patient is full code. Continue co-management with ICU team. Pending improvement in oxygenation. VS, I&O, 24H, [facility] Vital Signs/I&O Vital Signs Date Time Temp Pulse Resp B/P (MAP) Pulse Ox O2 Delivery O2 Flow Rate FiO2 11/04/20 04:00 40.0 80 11/04/20 04:00 97.1 75 161/79 (106) 91 HVNI-Vapotherm 11/04/20 00:00 20 I&O- Last 24 Hours up to 6 AM 11/04/20 06:00 Intake Total 1890 ml Output Total 1350 ml Balance 540 ml Laboratory Data 24H LABS Laboratory Tests 2 11/03/20 12:09: Bedside Glucose (Misc Panel) 167H 11/03/20 17:43: Bedside Glucose (Misc Panel) 257H 11/03/20 21:26: Bedside Glucose (Misc Panel) 179H 11/04/20 04:59: D-Dimer, Quantitative 3629.50H, Anion Gap 8, Glomerular Filtration Rate > 60.0, Calcium Level 8.8, Phosphorus Level 2.6#, Total Bilirubin 0.4, Aspartate Amino Transf (AST/SGOT) 21, Alanine Aminotransferase (ALT/SGPT) 25, Alkaline Phosphatase 69, Lactate Dehydrogenase 297H, Total Creatine Kinase 31L, C- Reactive Protein, Quantitative 13.10H, Total Protein 7.7, Albumin 1.9L, Albumin/Globulin Ratio 0.3, Triglycerides Level 144, Cholesterol Level 157 11/04/20 08:21: Bedside Glucose (Misc Panel) 94 CBC/BMP Laboratory Tests 11/04/20 04:59 Microbiology Microbiology 11/01/20 Gram Stain - Final, Complete 11/01/20 Sputum Culture - Final, Complete Yeast Like Organism 10/29/20 Blood Culture - Final, Complete NO GROWTH AFTER 5 DAYS 10/29/20 Blood Culture - Final, Complete NO GROWTH AFTER 5 DAYS GME ATTESTATION GME ATTESTATION My faculty preceptor for this patient encounter was physically present during the encounter and was fully available. All aspects of the patient interview, examination, medical decision making process, and medical care plan development were reviewed and approved by the faculty preceptor. The faculty preceptor is aware and concurs with the plan as stated in the body of this note and will attest to such by his/her cosignature. ATTENDING NOTE I, Betty Montez, have independently examined this patient and performed my own physical exam, as well as reviewed the documentation and edited where necessary. I have discussed in detail with the resident / student the findings and plan of treatment as documented by the resident / student and edited their note. I agree with their findings and treatment plan and have edited their documentation. I will continue to follow the patient during this hospital stay. JUMA JUAREZ MD Nov 04, 2020 08:46 BETTY MONTEZ MD Nov 04, 2020 15:44
[2020-11-04] MEDS: K-PHOS NEUTRAL 250MG TABLET (SOD.PHOSPHATE/POT.PHOSPHATE) PO SCH ×3 (12:45→21:02)
[2020-11-04] MEDS: SENOKOT S TAB PO SCH (15:18)
[2020-11-04] MEDS: LEVEMIR (INSULIN DETEMIR) 1 UNITS/0.01ML SC SCH (21:04)
[2020-11-05] VITALS: BP 149/78
[2020-11-05] MEDS: IPRATROPIUM 0.5MG/ALBUTEROL 2.5MG INH SOL UD 3ML (DUONEB) NEB SCH ×4 (01:07→20:00)
[2020-11-05 04:00] VITALS: BP 133/71
[2020-11-05 04:57] LABS: HEMATOCRIT 37.4 % (42.0-52.0); MEAN CORPUSCULAR HEMOGLOBIN 30.7 pg (27.0-33.0); MEAN CORPUSCULAR HGB CONC 34.8 g/dl (32.0-36.5); MEAN CORPUSCULAR VOLUME 88.2 fl (80.0-96.0); PLATELET COUNT, AUTOMATED 408 10^3/uL (150-450); RED BLOOD COUNT 4.24 10^6/uL (4.30-6.10); WHITE BLOOD COUNT 9.4 10^3/uL (4.0-10.0)
[2020-11-05 05:08] LABS: INR 0.98; PROTHROMBIN TIME 13.2 SECONDS (12.5-14.3)
[2020-11-05 05:10] LABS: PARTIAL THROMBOPLASTIN TIME 44.3 SECONDS (24.2-38.5)
[2020-11-05 05:12] LABS: D-DIMER QUANT 3500.75 ng/ml (<500)
[2020-11-05 05:30] LABS: ALBUMIN 1.8 GM/DL (3.2-5.2); ALT/SGPT 24 U/L (12-78); BILIRUBIN,TOTAL 0.4 MG/DL (0.2-1.0); BLOOD UREA NITROGEN 25 MG/DL (7-18); CALCIUM LEVEL 8.3 MG/DL (8.8-10.2); CARBON DIOXIDE LEVEL 24 MEQ/L (21-32); CHLORIDE LEVEL 103 MEQ/L (98-107); CHOLESTEROL LEVEL 157 MG/DL (< 200); CPK CREATINE PHOSPHOKINASE 80 U/L (39-308); CREATININE FOR GFR 1.02 MG/DL (0.70-1.30); FERRITIN 1176 NG/ML (26-388); GLOMERULAR FILTRATION RATE > 60.0 (>42); GLUCOSE, FASTING 125 MG/DL (70-100); LDH LACTATE DEHYDROGENASE 297 U/L (87-241); PHOSPHORUS LEVEL 3.3 MG/DL (2.5-4.9); POTASSIUM SERUM 3.4 MEQ/L (3.5-5.1); SODIUM LEVEL 136 MEQ/L (136-145); TOTAL PROTEIN 6.6 GM/DL (6.4-8.2); TRIGLYCERIDES LEVEL 135 MG/DL (<150)
[2020-11-05 05:31] LABS: C REACTIVE PROTEIN QUANTITATIV 9.98 MG/DL (0.00-0.30)
[2020-11-05] MEDS: cefTRIAXone SOD 2 GM in D5W MINI-BAG PLUS 50 ML IV SCH (06:06)
[2020-11-05] MEDS ORDERED: POTASSIUM CHLORIDE 10 MEQ SR TABLET PO ONE ×2 (07:00→07:15)
[2020-11-05] MEDS: HumaLOG INSULIN (NovoLOG) PER UNIT SC SCH ×4 (07:30→20:56)
[2020-11-05 08:00] VITALS: BP 162/79
[2020-11-05] MEDS: ENOXAPARIN 40MG/0.4ML SYRINGE (J1650 PER 10MG) SC SCH ×2 (08:16→20:50)
[2020-11-05] MEDS: SENOKOT S TAB PO SCH (08:16)
[2020-11-05] MEDS: K-PHOS NEUTRAL 250MG TABLET (SOD.PHOSPHATE/POT.PHOSPHATE) PO SCH ×3 (08:19→20:48)
[2020-11-05] MEDS: atenoloL 25 MG TAB PO SCH ×2 (08:19→20:49)
[2020-11-05] MEDS: PANTOPRAZOLE 40MG TAB (PROTONIX) PO SCH (08:20)
[2020-11-05] MEDS: dexameTHASONE 20MG/5ML VIAL (J1100 PER 1MG) IV SCH (09:12)
[2020-11-05 12:00] VITALS: BP 148/82
--- NOTE | 2020-11-05 12:26 | IPNPDOC ---
Date Seen The patient was seen on 11/05/20. Progress Note SUBJECTIVE: Patient was seen and examined at the bedside this morning. Patient reports he is feeling better. He denies any worsened SOB or cough. He has been titrated down to 70L at 35% FiO2. Nursing reports no issues overnight. OBJECTIVE PHYSICAL EXAMINATION: VITAL SIGNS: see below GENERAL: alert and oriented, in no apparent distress, pleasant and conversant in full sentences. HEENT: PERRL, EOMI, Oral mucous membranes are moist without lesions. NECK: The patient has no noted JVD. No adenopathy is appreciated. No thyromegaly CHEST/LUNGS: There is decrease in breath sounds at the bases bilaterally with some scattered rhonchi and upper airway transmitted sounds HEART: Regular rate and rhythm. No murmurs, rubs, or gallops are appreciated. Distal pulses are 2+. No carotid bruits appreciated. ABDOMEN: Soft, nontender, and nondistended. Bowel sounds are positive. No organomegaly is appreciated. No masses are appreciated. There are no peritoneal signs. There is no [place] sign. EXTREMITIES: No peripheral edema. There is no focal long bone tenderness or deformity. SKIN: The patients skin is warm and dry, without rashes or lesions. PSYCHIATRIC: AAO x 3, normal mood/affect NEUROLOGIC: There is chronic right facial droop present. No obvious other focal deficits LABORATORY DATA, IMAGING STUDIES, MICROBIOLOGY: Please see below. Echocardiogram: None ASSESSMENT AND PLAN: This is a 70-year-old male with history of hypertension and type 2 diabetes, CKD 3 who presented with progressively worsening shortness of breath, fevers, malaise started 2 weeks ago (this is symptom day #20) now admitted to the ICU found to be in acute hypoxic respiratory failure secondary to COVID19 pneumonia PROBLEMS: 1. Acute hypoxic respiratory failure 2/2 COVID19 PNA: -Patient is saturating well on 35 L high flow nasal cannula and recently titrated down to 70% FiO2. -Inflammatory markers: LDH down to 297 today, CRP down to 9.98, procal last measured at 0.20, d-dimer down to 3500 -Last AB.375/28.6/62.4 on 10/29/2020 indicating acute hypoxemia -Continue dexamethasone 6 mg IV every 24 hours, this is day 7 -Continue Protonix for GI protection -Fluid status appears to be euvolemic. No need for IV Lasix at this time. -Appreciate recommendations of ICU team. 2. Superimposed community-acquired bacterial pneumonia: -Procalcitonin elevated at 0.20 -Sputum culture grew yeast-like organism -Continue empiric ceftriaxone, day 7 3. Lactic acidosis on admission: -Resolved 4. Type 2 diabetes, insulin-dependent: Complicated by -Blood sugars very labile likely from dexamethasone use. -Continue sliding scale insulin with hypoglycemic protocol -Continue Levemir 30 units daily at bedtime 5. s/p JONATHAN on CKD: Appears to have resolved -Creatinine today 1.0, which appears to be his baseline 6. Hypertension: BP noted to be within normal limits -Continue atenolol 7. Chronic back pain: -Continue [place] DVT prophylaxis ordered?: Lovenox 40 mg every 12 hours DISPOSITION: Patient is full code. Continue co-management with ICU team. Pending improvement in oxygenation. [facility] Vital Signs Date Time Temp Pulse Resp B/P (MAP) Pulse Ox O2 Delivery O2 Flow Rate FiO2 11/05/20 04:00 97.4 76 20 133/71 (91) 91 HVNI-Vapotherm 35.0 70 I&O- Last 24 Hours up to 6 AM 11/05/20 06:00 Intake Total 1160 ml Output Total 1425 ml Balance -265 ml Laboratory Data 24H LABS Laboratory Tests 2 11/04/20 08:21: Bedside Glucose (Misc Panel) 94 11/04/20 12:12: Bedside Glucose (Misc Panel) 144H 11/04/20 17:15: Bedside Glucose (Misc Panel) 301H 11/04/20 21:02: Bedside Glucose (Misc Panel) 362H 11/05/20 04:47: Nucleated Red Blood Cells % (auto) 0.0, Prothrombin Time 13.2, Prothromb Time International Ratio 0.98, Activated Partial Thromboplast Time 44.3H, Fibrinogen 671H, D-Dimer, Quantitative 3500.75H, Anion Gap 9, Glomerular Filtration Rate > 60.0, Calcium Level 8.3L, Phosphorus Level 3.3#, Ferritin 1176H, Total Bilirubin 0.4, Aspartate Amino Transf (AST/SGOT) 15, Alanine Aminotransferase (ALT/SGPT) 24, Alkaline Phosphatase 69, Lactate Dehydrogenase 297H, Total Creatine Kinase 80#, C-Reactive Protein, Quantitative 9.98H, Total Protein 6.6, Albumin 1.8L, Albumin/Globulin Ratio 0.4, Triglycerides Level 135, Cholesterol Level 157 CBC/BMP Laboratory Tests 11/05/20 04:47 Microbiology Microbiology 11/04/20 Gram Stain, Received Pending 11/04/20 Sputum Culture, Received Pending 11/01/20 Gram Stain - Final, Complete 11/01/20 Sputum Culture - Final, Complete Yeast Like Organism 10/29/20 Blood Culture - Final, Complete NO GROWTH AFTER 5 DAYS 10/29/20 Blood Culture - Final, Complete NO GROWTH AFTER 5 DAYS GME ATTESTATION GME ATTESTATION My faculty preceptor for this patient encounter was physically present during the encounter and was fully available. All aspects of the patient interview, examination, medical decision making process, and medical care plan development were reviewed and approved by the faculty preceptor. The faculty preceptor is aware and concurs with the plan as stated in the body of this note and will attest to such by his/her cosignature. ATTENDING NOTE I, Betty Montez, have independently examined this patient and performed my own physical exam, as well as reviewed the documentation and edited where necessary. I have discussed in detail with the resident / student the findings and plan of treatment as documented by the resident / student and edited their note. I agree with their findings and treatment plan and have edited their documentation. I will continue to follow the patient during this hospital stay. JUMA JUAREZ MD Nov 05, 2020 08:07 BETTY MONTEZ MD Nov 05, 2020 15:05
--- NOTE | 2020-11-05 12:55 | CCN ---
CRITICAL CARE NOTE DATE: 11/05/2020 The patient is seen in the intensive care unit, hypoxic, requiring high percentages of oxygen delivered via VapoTherm, critically ill. This is hospital day #8, VapoTherm day #8, symptoms day #22. At bedside, his temperature is 97, pulse rate 73, respirations 20, blood pressure 162/79, oxygen flow rate with 70% FiO2, revealing a saturation of 93%. Intake and output for the past 24 hours is 1280 in, 1400 out, since midnight 480 in and 595 out. At bedside he is ill appearing and cachectic. He is conversant this morning and indicates that he slept reasonably well. Oral mucosa is pink. Neck is supple. No meningismus. Jugular veins are not stented. The heart sounds are regular, somewhat distant but no appreciable murmur. Breath sounds diminished bilaterally. Crepitant bibasilar rales are appreciated, left greater than right. Abdomen is soft. Bowel sounds are appreciated in the right lower quadrant. There is no palpable mass. Extremities are cool with evidence of loss of muscle tone. Peripheral pulses are palpable. DIAGNOSTIC STUDIES: His white cell count this morning is up slightly at 9.4, hemoglobin is 13, hematocrit 37.4, platelet count 408,000. The electrolytes are sodium 136, potassium 3.4, up from 3.2, chloride 103, CO2 of 24, BUN 25. Creatinine is down to 1.02, glucose 125, calcium 8.3. Albumin is 1.8. His AST is 15, ALT 24. LDH 297. Markers of inflammation: His fibrinogen is down at 671. Ferritin is down at 11.76, and C-reactive protein is down at 9.98. Coagulation studies indicate a PT of 13, PTT of 44, INR 0.98, and D-dimer down slightly at 3500. On review of microbiology studies, a sputum was able to be obtained yesterday and shows moderate white cells. No bacteria were identified. There were some fungal elements. Cultures results are pending. On medications review, he is receiving K-Phos 250 three times a day, DuoNeb, Decadron 6 mg a day, atenolol 50 twice a day, Protonix 40 mg a day, Lovenox 40 mg every 12, ceftriaxone 2 grams every 24. The primary problem requiring critical attention is hypoxemic respiratory failure secondary to COVID pneumonia. We will continue with VapoTherm therapy, as the patient is intolerant of noninvasive ventilation, and adjust the flow and oxygen percentage based on gas exchange. We will continue encouraging prone posturing as much as tolerated by the patient. Inflammatory markers are improved today. We will continue with Decadron to complete the course. Secondary infections disease. There are white cells in the sputum. His white cell count is up slightly. A culture is pending. We will continue with ceftriaxone. Hypercoagulable state associated with COVID infection. There is no evidence of hemorrhage or thrombosis. Coagulation studies are acceptable, and D-dimer is down slightly. Hypophosphatemia/hypokalemia. Somewhat better today. Will continue with replacement and recheck in the morning. Protein-calorie malnutrition. The patient's diet has been increased, and will encourage him to increase his intake as he is able. Deconditioning. The patient will be out of bed today so long as his oxygen saturation tolerates. Deep venous thrombosis (DVT) prophylaxis is in place with Lovenox. Ulcer prophylaxis in place with Protonix. Patient remains critically ill. ICU care is appropriate. Seventy-seven minutes was spent in the provision of bedside critical care and coordination among services and the nursing team, exclusive of any procedure time.
[2020-11-05 16:30] VITALS: BP 180/95
[2020-11-05 20:00] VITALS: BP 160/89
[2020-11-05] MEDS: LEVEMIR (INSULIN DETEMIR) 1 UNITS/0.01ML SC SCH (20:49)
[2020-11-06] VITALS: BP 164/85
[2020-11-06] MEDS: IPRATROPIUM 0.5MG/ALBUTEROL 2.5MG INH SOL UD 3ML (DUONEB) NEB SCH ×4 (00:43→20:00)
[2020-11-06 04:00] VITALS: BP 158/75
[2020-11-06 04:44] LABS: HEMATOCRIT 38.3 % (42.0-52.0); HEMOGLOBIN 13.1 g/dl (13.5-17.5); MEAN CORPUSCULAR HEMOGLOBIN 30.1 pg (27.0-33.0); MEAN CORPUSCULAR HGB CONC 34.2 g/dl (32.0-36.5); PLATELET COUNT, AUTOMATED 403 10^3/uL (150-450); RED BLOOD COUNT 4.35 10^6/uL (4.30-6.10); WHITE BLOOD COUNT 9.4 10^3/uL (4.0-10.0)
[2020-11-06 04:58] LABS: INR 1.12; PROTHROMBIN TIME 14.7 SECONDS (12.5-14.3)
[2020-11-06 05:01] LABS: D-DIMER QUANT 3120.45 ng/ml (<500)
[2020-11-06 05:13] LABS: ALBUMIN 1.8 GM/DL (3.2-5.2); ALT/SGPT 27 U/L (12-78); BILIRUBIN,TOTAL 0.3 MG/DL (0.2-1.0); BLOOD UREA NITROGEN 23 MG/DL (7-18); C REACTIVE PROTEIN QUANTITATIV 6.21 MG/DL (0.00-0.30); CALCIUM LEVEL 8.1 MG/DL (8.8-10.2); CARBON DIOXIDE LEVEL 25 MEQ/L (21-32); CHLORIDE LEVEL 105 MEQ/L (98-107); CHOLESTEROL LEVEL 152 MG/DL (< 200); CPK CREATINE PHOSPHOKINASE 45 U/L (39-308); CREATININE FOR GFR 0.94 MG/DL (0.70-1.30); FERRITIN 960 NG/ML (26-388); GLOMERULAR FILTRATION RATE > 60.0 (>42); GLUCOSE, FASTING 65 MG/DL (70-100); LDH LACTATE DEHYDROGENASE 253 U/L (87-241); PHOSPHORUS LEVEL 3.3 MG/DL (2.5-4.9); POTASSIUM SERUM 3.6 MEQ/L (3.5-5.1); SODIUM LEVEL 137 MEQ/L (136-145); TOTAL PROTEIN 6.5 GM/DL (6.4-8.2); TRIGLYCERIDES LEVEL 145 MG/DL (<150)
[2020-11-06] MEDS: cefTRIAXone SOD 2 GM in D5W MINI-BAG PLUS 50 ML IV SCH (06:17)
[2020-11-06 07:00] VITALS: BP 150/69
[2020-11-06] MEDS: HumaLOG INSULIN (NovoLOG) PER UNIT SC SCH ×4 (07:30→21:00)
[2020-11-06] MEDS: SENOKOT S TAB PO SCH (09:00)
[2020-11-06] MEDS: ENOXAPARIN 40MG/0.4ML SYRINGE (J1650 PER 10MG) SC SCH ×2 (09:17→21:00)
[2020-11-06] MEDS: dexameTHASONE 20MG/5ML VIAL (J1100 PER 1MG) IV SCH (09:21)
[2020-11-06] MEDS: atenoloL 25 MG TAB PO SCH ×2 (09:22→21:00)
[2020-11-06] MEDS: K-PHOS NEUTRAL 250MG TABLET (SOD.PHOSPHATE/POT.PHOSPHATE) PO SCH ×3 (09:23→21:00)
[2020-11-06] MEDS: PANTOPRAZOLE 40MG TAB (PROTONIX) PO SCH (09:23)
[2020-11-06 11:00] LABS: MAGNESIUM LEVEL 2.1 MG/DL (1.8-2.4)
--- NOTE | 2020-11-06 11:14 | IPNPDOC ---
Date Seen The patient was seen on 11/06/20. Progress Note SUBJECTIVE: Patient was seen and examined at the bedside this morning. He is currently requiring 40L and 85% FiO2. Nursing reports that after eating breakfast this morning he needed to be titrated up to 100% because he became more dyspneic. The patient reports he thinks he "did too much" and felt somewhat lightheaded and short of breath. He is observed laying in the R lateral decubitus position this morning. He states overall he feels well since he has recovered from over- exertion. Otherwise, no other ongoing issues. He denies any n/v/d at this time. The patient reports he feels he is unable to void after the removal of the urinary catheter. OBJECTIVE PHYSICAL EXAMINATION: VITAL SIGNS: see below GENERAL: alert and oriented, in no apparent distress, pleasant and conversant in full sentences. HEENT: PERRL, EOMI, Oral mucous membranes are moist without lesions. NECK: The patient has no noted JVD. No adenopathy is appreciated. No thyromegaly CHEST/LUNGS: There is decreased in breath sounds at the bases bilaterally with some scattered rhonchi and upper airway transmitted sounds HEART: Regular rate and rhythm. No murmurs, rubs, or gallops are appreciated. Distal pulses are 2+. No carotid bruits appreciated. ABDOMEN: Soft, nontender, and nondistended. Bowel sounds are positive. No organomegaly is appreciated. No masses are appreciated. There are no peritoneal signs. There is no [place] sign. EXTREMITIES: No peripheral edema. There is no focal long bone tenderness or deformity. SKIN: The patients skin is warm and dry, without rashes or lesions. PSYCHIATRIC: AAO x 3, normal mood/affect NEUROLOGIC: There is chronic right facial droop present. No obvious other focal deficits LABORATORY DATA, IMAGING STUDIES, MICROBIOLOGY: Please see below. Echocardiogram: None ASSESSMENT AND PLAN: This is a 70-year-old male with history of hypertension and type 2 diabetes, CKD 3 who presented with progressively worsening shortness of breath, fevers, malaise started 2 weeks ago (this is symptom day #21) now admitted to the ICU found to be in acute hypoxic respiratory failure secondary to COVID19 pneumonia PROBLEMS: 1. Acute hypoxic respiratory failure 2/2 COVID19 PNA: Given prolonged course of infection, concern for fibrotic stage at this time -Continue oxygen titration on high flow nasal cannula -Inflammatory markers: Ferritin decreased to 960, LDH decreased to 253, CRP down to 6.21, d-dimer slightly down to 3120 -Continue dexamethasone 6 mg IV every 24 hours, this is day 8 -Continue Protonix for GI protection -Fluid status appears to be euvolemic. No need for IV Lasix at this time. -Appreciate recommendations of ICU team. 2. Superimposed community-acquired bacterial pneumonia: -Repeat pro calcitonin ordered for today -Sputum culture grew yeast-like organism -Status post 7 days of ceftriaxone. This was stopped by ICU team as sputum culture not concerning for bacterial coinfection. Plan for repeat chest x-ray tomorrow morning. 3. Lactic acidosis on admission: -Resolved 4. Type 2 diabetes, insulin-dependent: Complicated by -Blood sugars very labile likely from dexamethasone use. -Continue sliding scale insulin with hypoglycemic protocol -Levemir decreased to 15 units daily at bedtime 5. s/p JONATHAN on CKD: Appears to have resolved -Creatinine today 1.0, which appears to be his baseline 6. Hypertension: BP noted to be within normal limits -Continue atenolol 7. Chronic back pain: -Continue [place] DVT prophylaxis ordered?: Lovenox 40 mg every 12 hours, prophylactic dose DISPOSITION: Patient is full code. Continue co-management with ICU team. Pending improvement in oxygenation. VS, I&O, 24H, [facility] Vital Signs/I&O Vital Signs Date Time Temp Pulse Resp B/P (MAP) Pulse Ox O2 Delivery O2 Flow Rate FiO2 11/06/20 07:56 95 HVNI-Vapotherm 35.0 80 11/06/20 04:00 97.5 75 21 158/75 (102) I&O- Last 24 Hours up to 6 AM 11/06/20 06:00 Intake Total 1370 ml Output Total 1090 ml Balance 280 ml Laboratory Data 24H LABS Laboratory Tests 2 11/05/20 08:22: Bedside Glucose (Misc Panel) 80L 11/05/20 12:49: Bedside Glucose (Misc Panel) 152H 11/05/20 17:55: Bedside Glucose (Misc Panel) 208H 11/05/20 20:53: Bedside Glucose (Misc Panel) 174H 11/06/20 04:35: Nucleated Red Blood Cells % (auto) 0.0, Prothrombin Time 14.7H, Prothromb Time International Ratio 1.12, Fibrinogen 588H, D-Dimer, Quantitative 3120.45H, Anion Gap 7L, Glomerular Filtration Rate > 60.0, Calcium Level 8.1L, Phosphorus Level 3.3, Ferritin 960H, Total Bilirubin 0.3, Aspartate Amino Transf (AST/SGOT) 20, Alanine Aminotransferase (ALT/SGPT) 27, Alkaline Phosphatase 64, Lactate Dehydrogenase 253H, Total Creatine Kinase 45, C-Reactive Protein, Quantitative 6.21H, Total Protein 6.5, Albumin 1.8L, Albumin/Globulin Ratio 0.4, Triglycerides Level 145, Cholesterol Level 152 CBC/BMP Laboratory Tests 11/06/20 04:35 Microbiology Microbiology 11/04/20 Gram Stain - Final, Resulted 11/04/20 Sputum Culture, Resulted Pending 11/01/20 Gram Stain - Final, Complete 11/01/20 Sputum Culture - Final, Complete Yeast Like Organism 10/29/20 Blood Culture - Final, Complete NO GROWTH AFTER 5 DAYS 10/29/20 Blood Culture - Final, Complete NO GROWTH AFTER 5 DAYS GME ATTESTATION GME ATTESTATION My faculty preceptor for this patient encounter was physically present during the encounter and was fully available. All aspects of the patient interview, examination, medical decision making process, and medical care plan development were reviewed and approved by the faculty preceptor. The faculty preceptor is aware and concurs with the plan as stated in the body of this note and will attest to such by his/her cosignature. ATTENDING NOTE I, Betty Montez, have independently examined this patient and performed my own physical exam, as well as reviewed the documentation and edited where necessary. I have discussed in detail with the resident / student the findings and plan of treatment as documented by the resident / student and edited their note. I agree with their findings and treatment plan and have edited their documentation. I will continue to follow the patient during this hospital stay. JUMA JUAREZ MD Nov 06, 2020 08:06 BETTY MONTEZ MD Nov 06, 2020 14:04
[2020-11-06 11:56] VITALS: BP 148/80
--- NOTE | 2020-11-06 14:44 | CCN ---
CRITICAL CARE NOTE DATE: 11/06/2020 SUBJECTIVE: The patient is seen in the intensive care unit hypoxemic requiring Vapotherm now at 100% oxygen. He was weaned down to 70%, but his sats dropped precipitously when he was out of bed to the bedside chair. He is participating in proning. This is hospital day #9 and Vapotherm day #9. He has had symptoms for 23 days now. Of significance, he has a past medical history of diabetes mellitus type 2, chronic kidney disease, hypertension, heart block, and coronary artery disease. OBJECTIVE: VITAL SIGNS: Temperature 97, T-max for the past 24 hours 98, pulse rate is 75, respiratory rate 22, blood pressure 158/75. INTAKE AND OUTPUT: For the past 24 hours 1446 in and 1215 out; since midnight 170 in and 250 out. GENERAL APPEARANCE: At bedside, he is ill-appearing, but not in any distress. HEENT: His oral mucosa is pink. NECK: Supple. There is no meningismus. No jugular venous distention. HEART: Sounds are regular with occasional ectopy. Monitoring showing sinus rhythm with PVCs. LUNGS: Breath sounds are diminished bilaterally with crepitant rales in the bases. No accessory muscle is appreciated at rest. ABDOMEN: Soft. There are bowel sounds in the right lower quadrant. No palpable mass. EXTREMITIES: Cool. Pulses are diminished, but palpable. Nails show no clubbing. DIAGNOSTIC STUDIES: His white cell count is 9.4, hemoglobin 13.1, hematocrit 38.3, platelet count 403,000. His electrolytes are sodium 137, potassium 3.6, chloride 105, CO2 of 25, BUN 23, creatinine down to 0.94, glucose 65. AST 20, ALT 27, albumin 1.8, calcium 8.1. His phosphorus is holding at 3.3. Inflammatory markers: LDH is down at 253. Fibrinogen is down at 588. Ferritin is down at 960 and CRP is down at 6.21. PT is 14.7 with a dimer of 3120, which is decreased. Microbiology review: Sputum studies on 11/04 are now showing normal art with white cells. MEDICATIONS: On review, this is day #7 of ceftriaxone, day #7 of dexamethasone. He is receiving K-Phos, Lovenox 40 mg q. 12 hours, and Protonix. IMAGING STUDIES: None new this morning. ASSESSMENT AND PLAN: The primarily problem requiring critical attention is hypoxic respiratory failure. Will continue on Vapotherm the patient being intolerant of noninvasive ventilation and attempt to wean to the oxygen percentage as able. He is proning and using incentive spirometry when he is out of bed. I will check a chest x-ray in the morning as there is some concern, given the duration of his symptoms, that he may be entering a fibrotic phase and may require a change in steroid dosing. COVID pneumonia - the patient has had prolonged symptoms prior to his presentation. He has received dexamethasone for seven days now and all inflammatory markers are decreased today. I will continue the dexamethasone for an additional day. The patient did not quality for remdesivir, as he was felt to have presented outside the window of opportunity for efficacy of remdesivir. The patient did not receive tocilizumab or baricitinib; as he was started on dexamethasone and did not demonstrate an inflammatory marker spike. Secondary infectious disease - the patient has no fever, white cell count is stable, and sputums were negative. He has received seven days of ceftriaxone. I will discontinue the antibiotics and continue close monitoring for secondary infection. Coagulopathy of COVID infection there is no evidence of hemorrhage and no evidence of thrombosis. The patient is receiving weight-based Lovenox and his coagulation studies are acceptable. His D-dimer has decreased. Continue monitoring coagulation studies and D-dimer level. Nutritional support the patient is eating some, but requires significant encouragement. I have addressed this with the ICU nursing team. Deep vein thrombosis (DVT) prophylaxis is in place with Lovenox. Ulcer prophylaxis in place with Protonix. CRITICAL CARE TIME: 72 minutes was spent in the provision of bedside critical care and coordination, excluding any time spent in the performance of procedures.
[2020-11-06 16:00] VITALS: BP 173/84
[2020-11-06 20:00] VITALS: BP 141/41
[2020-11-06] MEDS: LEVEMIR (INSULIN DETEMIR) 1 UNITS/0.01ML SC SCH (21:00)
[2020-11-07] VITALS: BP 168/83
[2020-11-07] MEDS: IPRATROPIUM 0.5MG/ALBUTEROL 2.5MG INH SOL UD 3ML (DUONEB) NEB SCH ×4 (00:54→19:59)
[2020-11-07 04:00] VITALS: BP 161/79
[2020-11-07 05:08] LABS: HEMATOCRIT 40.4 % (42.0-52.0); HEMOGLOBIN 13.5 g/dl (13.5-17.5); MEAN CORPUSCULAR HEMOGLOBIN 30.1 pg (27.0-33.0); MEAN CORPUSCULAR HGB CONC 33.4 g/dl (32.0-36.5); PLATELET COUNT, AUTOMATED 459 10^3/uL (150-450); RED BLOOD COUNT 4.49 10^6/uL (4.30-6.10); WHITE BLOOD COUNT 10.9 10^3/uL (4.0-10.0)
[2020-11-07 05:36] LABS: INR 1.15
[2020-11-07 05:41] LABS: ALT/SGPT 30 U/L (12-78); BILIRUBIN,TOTAL 0.6 MG/DL (0.2-1.0); BLOOD UREA NITROGEN 24 MG/DL (7-18); C REACTIVE PROTEIN QUANTITATIV 7.57 MG/DL (0.00-0.30); CALCIUM LEVEL 8.5 MG/DL (8.8-10.2); CARBON DIOXIDE LEVEL 27 MEQ/L (21-32); CHLORIDE LEVEL 100 MEQ/L (98-107); CHOLESTEROL LEVEL 166 MG/DL (< 200); CPK CREATINE PHOSPHOKINASE 31 U/L (39-308); CREATININE FOR GFR 1.08 MG/DL (0.70-1.30); FERRITIN 973 NG/ML (26-388); GLOMERULAR FILTRATION RATE > 60.0 (>42); GLUCOSE, FASTING 107 MG/DL (70-100); LDH LACTATE DEHYDROGENASE 279 U/L (87-241); PHOSPHORUS LEVEL 3.4 MG/DL (2.5-4.9); POTASSIUM SERUM 3.7 MEQ/L (3.5-5.1); SODIUM LEVEL 134 MEQ/L (136-145); TOTAL PROTEIN 6.9 GM/DL (6.4-8.2); TRIGLYCERIDES LEVEL 153 MG/DL (<150)
[2020-11-07 05:42] LABS: D-DIMER QUANT 3509.45 ng/ml (<500)
[2020-11-07] MEDS: HumaLOG INSULIN (NovoLOG) PER UNIT SC SCH ×4 (07:30→21:06)
[2020-11-07 08:00] VITALS: BP 163/72
--- NOTE | 2020-11-07 08:07 | REP ---
INDICATION: hypoxemia COMPARISON: 11/01/2020 TECHNIQUE: Portable AP view of the chest FINDINGS: Bilateral consolidations appear increased from prior examination. Decreased lung volumes are also noted. No obvious effusion. No pneumothorax. IMPRESSION: Decreased inspiratory effort with increased bilateral consolidations. <Electronically signed by Aaron Hunt > 11/07/20 0803
[2020-11-07] MEDS: atenoloL 25 MG TAB PO SCH ×2 (08:50→21:04)
[2020-11-07] MEDS: K-PHOS NEUTRAL 250MG TABLET (SOD.PHOSPHATE/POT.PHOSPHATE) PO SCH ×3 (08:50→21:04)
[2020-11-07] MEDS: ENOXAPARIN 40MG/0.4ML SYRINGE (J1650 PER 10MG) SC SCH ×2 (08:50→21:03)
[2020-11-07] MEDS: SENOKOT S TAB PO SCH (08:51)
[2020-11-07] MEDS: dexameTHASONE 20MG/5ML VIAL (J1100 PER 1MG) IV SCH (08:51)
[2020-11-07] MEDS: PANTOPRAZOLE 40MG TAB (PROTONIX) PO SCH (08:51)
--- NOTE | 2020-11-07 10:49 | IPNPDOC ---
Date Seen The patient was seen on 11/07/20. Progress Note SUBJECTIVE: Patient was seen and examined at the bedside in the ICU this morning. He is sitting up eating breakfast. Overnight he did have a low-grade temperature at 100.9. He is now requiring 40 L oxygen at 70% FiO2. He states his breathing is somewhat better but feels as though he "can't due to much" because it makes him very short of breath. While he was eating breakfast his saturations were in the mid 80s. He had to take a break and lay down in bed. Otherwise he denies any nausea, vomiting, diarrhea at this time. OBJECTIVE PHYSICAL EXAMINATION: VITAL SIGNS: see below GENERAL: alert and oriented, in no apparent distress, pleasant and conversant in full sentences. HEENT: PERRL, EOMI, Oral mucous membranes are moist without lesions. NECK: The patient has no noted JVD. No adenopathy is appreciated. No thyromegaly CHEST/LUNGS: There is decreased in breath sounds at the bases bilaterally without any adventitious breath sounds appreciated. HEART: Regular rate and rhythm. No murmurs, rubs, or gallops are appreciated. Distal pulses are 2+. No carotid bruits appreciated. ABDOMEN: Soft, nontender, and nondistended. Bowel sounds are positive. No organomegaly is appreciated. No masses are appreciated. There are no peritoneal signs. There is no [place] sign. EXTREMITIES: No peripheral edema. There is no focal long bone tenderness or deformity. SKIN: The patients skin is warm and dry, without rashes or lesions. PSYCHIATRIC: AAO x 3, normal mood/affect NEUROLOGIC: There is chronic right facial droop present. No obvious other focal deficits LABORATORY DATA, IMAGING STUDIES, MICROBIOLOGY: Please see below. CXR 11/07/2020: FINDINGS: Bilateral consolidations appear increased from prior examination. Decreased lung volumes are also noted. No obvious effusion. No pneumothorax. IMPRESSION: Decreased inspiratory effort with increased bilateral consolidations. Echocardiogram: None ASSESSMENT AND PLAN: This is a 70-year-old male with history of hypertension and type 2 diabetes, CKD 3 who presented with progressively worsening shortness of breath, fevers, malaise started 2 weeks ago (this is symptom day #22) now admitted to the ICU found to be in acute hypoxic respiratory failure secondary to COVID19 pneumonia PROBLEMS: 1. Acute hypoxic respiratory failure 2/2 COVID19 PNA: Given prolonged course of infection, concern for fibrotic stage at this time -Continue oxygen titration on Vapotherm -Inflammatory markers: Ferritin slightly increased to 1973, LDH slightly inc reased to 279, CRP slightly increased to 7.57, d-dimer slightly increased to 3509 -Continue dexamethasone 6 mg IV every 24 hours, this is day 9 -Continue Protonix for GI protection -Fluid status appears to be euvolemic. No need for IV Lasix at this time. -Appreciate recommendations of ICU team. 2. Superimposed community-acquired bacterial pneumonia: -Pro calcitonin yesterday found to be 0.10 -Sputum culture grew yeast-like organism -Status post 7 days of ceftriaxone. This was stopped by ICU team as sputum culture not concerning for bacterial coinfection. -Repeat chest x-ray this morning shows decreased inspiratory effort but some increased bilateral consolidations. May be due to Covid 19 rather than bacterial pneumonia. The patient is symptom day 22 likely progressing toward fibrotic s tage of infection 3. Lactic acidosis on admission: -Resolved 4. Type 2 diabetes, insulin-dependent: Complicated by -Blood sugars very labile likely from dexamethasone use. -Continue sliding scale insulin with hypoglycemic protocol -Levemir decreased to 15 units daily at bedtime 5. s/p JONATHAN on CKD: Appears to have resolved -Creatinine today 1.0, which appears to be his baseline 6. Hypertension: BP noted to be within normal limits -Continue atenolol 7. Chronic back pain: -Continue [place] DVT prophylaxis ordered?: Lovenox 40 mg every 12 hours, prophylactic dose DISPOSITION: Patient is full code. Continue co-management with ICU team. Pending improvement in oxygenation. VS, I&O, 24H, [facility] Vital Signs/I&O Vital Signs Date Time Temp Pulse Resp B/P (MAP) Pulse Ox O2 Delivery O2 Flow Rate FiO2 11/07/20 08:50 79 163/72 11/07/20 08:30 26 90 HVNI-Vapotherm 40.0 70 11/07/20 08:00 100.9 I&O- Last 24 Hours up to 6 AM 11/07/20 06:00 Intake Total 1040 ml Output Total 775 ml Balance 265 ml Laboratory Data 24H LABS Laboratory Tests 2 11/06/20 11:39: Bedside Glucose (Misc Panel) 84 11/06/20 16:36: Bedside Glucose (Misc Panel) 271H 11/06/20 20:31: Bedside Glucose (Misc Panel) 219H 11/07/20 04:41: Nucleated Red Blood Cells % (auto) 0.0, Prothrombin Time 15.0H, Prothromb Time International Ratio 1.15, Fibrinogen 553H, D-Dimer, Quantitative 3509.45H, Anion Gap 7L, Glomerular Filtration Rate > 60.0, Calcium Level 8.5L, Phosphorus Level 3.4, Ferritin 973H, Total Bilirubin 0.6#, Aspartate Amino Transf (AST/SGOT) 18, Alanine Aminotransferase (ALT/SGPT) 30, Alkaline Phosphatase 71, Lactate Dehydrogenase 279H, Total Creatine Kinase 31L, C-Reactive Protein, Quantitative 7.57H, Total Protein 6.9, Albumin 2.0L, Albumin/Globulin Ratio 0.4, Triglycerides Level 153H, Cholesterol Level 166 CBC/BMP Laboratory Tests 11/07/20 04:41 Microbiology Microbiology 11/04/20 Gram Stain - Final, Complete 11/04/20 Sputum Culture - Final, Complete Yeast Like Organism 11/01/20 Gram Stain - Final, Complete 11/01/20 Sputum Culture - Final, Complete Yeast Like Organism 10/29/20 Blood Culture - Final, Complete NO GROWTH AFTER 5 DAYS 10/29/20 Blood Culture - Final, Complete NO GROWTH AFTER 5 DAYS GME ATTESTATION GME ATTESTATION My faculty preceptor for this patient encounter was physically present during the encounter and was fully available. All aspects of the patient interview, examination, medical decision making process, and medical care plan development were reviewed and approved by the faculty preceptor. The faculty preceptor is aware and concurs with the plan as stated in the body of this note and will attest to such by his/her cosignature. ATTENDING NOTE I, Betty Montez, have independently examined this patient and performed my own physical exam, as well as reviewed the documentation and edited where necessary. I have discussed in detail with the resident / student the findings and plan of treatment as documented by the resident / student and edited their note. I agree with their findings and treatment plan and have edited their documentation. I will continue to follow the patient during this hospital stay. JUMA JUAREZ MD Nov 07, 2020 10:49 BETTY MONTEZ MD Nov 07, 2020 16:03
--- NOTE | 2020-11-07 11:40 | CCN ---
CRITICAL CARE NOTE DATE: 11/04/2020 SUBJECTIVE: I attended [facility] here in the intensive care unit. The patient has been examined and chart reviewed. He remains on Vapotherm between 60% to 70% FiO2 at 40 liter flow rate. Saturations vary between 89% and 94%. He does not tolerate proning very well, but does reasonably well on either his back or his right side. OBJECTIVE: VITAL SIGNS: T-max overnight 100.9, blood pressure 160 systolic, heart rate generally 70s to 80s, and respiratory rate generally in the mid 20s without accessory muscle use. INTAKE AND OUTPUT: [id number]-[id number] 1040 mL in with 775 mL out. GENERAL APPEARANCE: He is awake, alert, and reasonably comfortable. Able to be conversant. HEENT: Pupils react. Sclerae clear. Trachea is in the midline. Membranes are moist. CHEST: Shows diminished, but reasonably symmetric expansion. There may be some faint dependent crackles, but no other focal adventitious breath sounds are identified. CARDIAC: Regular with no gallops. Peripheral pulses palpable. No edema. ABDOMEN: Soft and nontender with normoactive bowel sounds. No convincing organomegaly or masses. EXTREMITIES: Without cyanosis or clubbing. NEUROLOGIC: He is awake, alert, and appropriate. PSYCHIATRIC: Normal mood and affect. LABORATORY DATA: White blood cell count 10.9, hemoglobin 13.5, platelet count 45,000. Sodium 134, K 3.7, chloride 100, CO2 of 27, BUN 24, creatinine 1.08. Ferritin remains unchanged from yesterday at 973. CRP up a little from yesterday at 7.57. D-dimer minimally up from yesterday at 3509. Procalcitonin yesterday was 0.1. IMAGING: Chest x-ray done today does show significant airspace disease peripherally on the right and to much of the left chest. This is a progression since his most recent film, but that was on the . IMPRESSION: 1. COVID pneumonia. 2. Hypoxemic respiratory failure. PLAN: At this point, he is on maximal therapy. He does not, at least at this point in time, appear to have a significant secondary infection. Given his advanced age and presentation, his course will be prolonged I suspect. His inflammatory markers really are unchanged. His oxygenation status is holding currently. He did not tolerate noninvasive support. At this point, we will continue with his current level of treatment. Medication list has been reviewed. He remains on Decadron and dose adjusted Lovenox. Further recommendations will be made in the progress notes as new information is available. His prognosis remains guarded.
[2020-11-07 12:00] VITALS: BP 151/72
[2020-11-07 16:00] VITALS: BP 160/81
[2020-11-07 20:00] VITALS: BP 173/92
[2020-11-07] MEDS: LEVEMIR (INSULIN DETEMIR) 1 UNITS/0.01ML SC SCH (21:03)
[2020-11-08] VITALS: BP 167/84
[2020-11-08] MEDS: IPRATROPIUM 0.5MG/ALBUTEROL 2.5MG INH SOL UD 3ML (DUONEB) NEB SCH ×4 (02:00→20:10)
[2020-11-08 04:00] VITALS: BP 176/84
[2020-11-08 05:01] LABS: MEAN CORPUSCULAR HEMOGLOBIN 30.4 pg (27.0-33.0); MEAN CORPUSCULAR HGB CONC 34.2 g/dl (32.0-36.5); MEAN CORPUSCULAR VOLUME 88.8 fl (80.0-96.0); PLATELET COUNT, AUTOMATED 404 10^3/uL (150-450); RED BLOOD COUNT 4.28 10^6/uL (4.30-6.10); WHITE BLOOD COUNT 11.9 10^3/uL (4.0-10.0)
[2020-11-08 05:10] LABS: INR 1.05
[2020-11-08 05:12] LABS: D-DIMER QUANT 2900.17 ng/ml (<500)
[2020-11-08 05:28] LABS: ALBUMIN 1.9 GM/DL (3.2-5.2); ALT/SGPT 28 U/L (12-78); BILIRUBIN,TOTAL 0.4 MG/DL (0.2-1.0); BLOOD UREA NITROGEN 25 MG/DL (7-18); CALCIUM LEVEL 7.9 MG/DL (8.8-10.2); CARBON DIOXIDE LEVEL 26 MEQ/L (21-32); CHLORIDE LEVEL 103 MEQ/L (98-107); CREATININE FOR GFR 1.12 MG/DL (0.70-1.30); FERRITIN 843 NG/ML (26-388); GLOMERULAR FILTRATION RATE > 60.0 (>42); GLUCOSE, FASTING 98 MG/DL (70-100); LDH LACTATE DEHYDROGENASE 256 U/L (87-241); POTASSIUM SERUM 3.6 MEQ/L (3.5-5.1); SODIUM LEVEL 138 MEQ/L (136-145); TOTAL PROTEIN 6.6 GM/DL (6.4-8.2)
[2020-11-08] MEDS: HumaLOG INSULIN (NovoLOG) PER UNIT SC SCH ×4 (07:30→20:53)
[2020-11-08 08:00] VITALS: BP 165/74
[2020-11-08] MEDS: ENOXAPARIN 40MG/0.4ML SYRINGE (J1650 PER 10MG) SC SCH ×2 (08:40→20:49)
[2020-11-08] MEDS: SENOKOT S TAB PO SCH ×2 (08:40→09:00)
[2020-11-08] MEDS: K-PHOS NEUTRAL 250MG TABLET (SOD.PHOSPHATE/POT.PHOSPHATE) PO SCH ×3 (08:40→20:48)
[2020-11-08] MEDS: atenoloL 25 MG TAB PO SCH ×2 (08:41→20:48)
[2020-11-08] MEDS: PANTOPRAZOLE 40MG TAB (PROTONIX) PO SCH (08:42)
[2020-11-08] MEDS: dexameTHASONE 20MG/5ML VIAL (J1100 PER 1MG) IV SCH (08:42)
[2020-11-08 09:07] LABS: C REACTIVE PROTEIN QUANTITATIV 7.25 MG/DL (0.00-0.30)
--- NOTE | 2020-11-08 11:32 | IPNPDOC ---
Date Seen The patient was seen on 11/08/20. Progress Note SUBJECTIVE: Patient was seen and examined at the bedside in the ICU this morning. He is currently requiring 40L and 100%FiO2. He states he feels tired but feels okay. He denies any worsening shortness of breath, nausea, vomiting or diarrhea. He is anxious to get out of the hospital. OBJECTIVE PHYSICAL EXAMINATION: VITAL SIGNS: see below GENERAL: alert and oriented, in no apparent distress, pleasant and conversant in full sentences. HEENT: PERRL, EOMI, Oral mucous membranes are moist without lesions. NECK: The patient has no noted JVD. No adenopathy is appreciated. No thyromegaly CHEST/LUNGS: There is decreased in breath sounds at the bases bilaterally without any adventitious breath sounds appreciated. HEART: Regular rate and rhythm. No murmurs, rubs, or gallops are appreciated. Distal pulses are 2+. No carotid bruits appreciated. ABDOMEN: Soft, nontender, and nondistended. Bowel sounds are positive. No organomegaly is appreciated. No masses are appreciated. There are no peritoneal signs. There is no [place] sign. EXTREMITIES: No peripheral edema. There is no focal long bone tenderness or deformity. SKIN: The patients skin is warm and dry, without rashes or lesions. PSYCHIATRIC: AAO x 3, normal mood/affect NEUROLOGIC: There is chronic right facial droop present. No obvious other focal deficits LABORATORY DATA, IMAGING STUDIES, MICROBIOLOGY: Please see below. ASSESSMENT AND PLAN: This is a 70-year-old male with history of hypertension and type 2 diabetes, CKD 3 who presented with progressively worsening shortness of breath, fevers, malaise started 2 weeks ago (this is symptom day #23) now admitted to the ICU found to be in acute hypoxic respiratory failure secondary to COVID19 pneumonia PROBLEMS: 1. Acute hypoxic respiratory failure 2/2 COVID19 PNA: Given prolonged course of infection, concern for fibrotic stage at this time -Continue oxygen titration on Vapotherm. If he stays on 40 L and 100% FiO2 for the next 48 hours, will transition to CPAP therapy -Inflammatory markers: Ferritin down to 843, LDH down to 256, CRP stable at 7.25, d-dimer down to 2900, fibrinogen up to 618 -Continue dexamethasone 6 mg IV every 24 hours, this is day 10 -Continue Protonix for GI protection -Fluid status appears to be euvolemic. No need for IV Lasix at this time. -WBC increased to 11.9 today, will order a UA given recent history of catheter use 2. Superimposed community-acquired bacterial pneumonia: -Pro calcitonin 0.12 -Sputum culture grew yeast-like organism -Status post 7 days of ceftriaxone. This was stopped by ICU team as sputum culture not concerning for bacterial coinfection. -Repeat chest x-ray this morning shows decreased inspiratory effort but some increased bilateral consolidations. May be due to Covid 19 rather than bacterial pneumonia. The patient is symptom day 23 likely progressing toward fibrotic stage of infection 3. Lactic acidosis on admission: -Resolved 4. Type 2 diabetes, insulin-dependent: Complicated by -Blood sugars very labile likely from dexamethasone use. -Continue sliding scale insulin with hypoglycemic protocol -Levemir decreased to 15 units daily at bedtime 5. s/p JONATHAN on CKD: Appears to have resolved -Creatinine today 1.0, which appears to be his baseline 6. Hypertension: BP noted to be within normal limits -Continue atenolol 7. Chronic back pain: -Continue [place] DVT prophylaxis ordered?: Lovenox 40 mg every 12 hours, prophylactic dose DISPOSITION: Patient is full code. Pending improvement in oxygenation. VS, I&O, 24H, Fishbone Vital Signs/I&O Vital Signs Date Time Temp Pulse Resp B/P (MAP) Pulse Ox O2 Delivery O2 Flow Rate FiO2 11/08/20 04:00 40.0 80 11/08/20 04:00 97.4 75 20 176/84 (114) 85 HVNI-Vapotherm I&O- Last 24 Hours up to 6 AM 11/08/20 06:00 Intake Total 720 ml Output Total 1625 ml Balance -905 ml Laboratory Data 24H LABS Laboratory Tests 2 11/07/20 11:15: Bedside Glucose (Misc Panel) 267H 11/07/20 16:07: Bedside Glucose (Misc Panel) 224H 11/07/20 21:01: Bedside Glucose (Misc Panel) 320H 11/08/20 04:43: Nucleated Red Blood Cells % (auto) 0.0, Prothrombin Time 14.0, Prothromb Time International Ratio 1.05, Fibrinogen 618H, D-Dimer, Quantitative 2900.17H, Anion Gap 9, Glomerular Filtration Rate > 60.0, Calcium Level 7.9L, Ferritin 843H, Total Bilirubin 0.4, Aspartate Amino Transf (AST/SGOT) 16, Alanine Aminotransferase (ALT/SGPT) 28, Alkaline Phosphatase 68, Lactate Dehydrogenase 256H, Total Protein 6.6, Albumin 1.9L, Albumin/Globulin Ratio 0.4 CBC/BMP Laboratory Tests 11/08/20 04:43 Microbiology Microbiology 11/04/20 Gram Stain - Final, Complete 11/04/20 Sputum Culture - Final, Complete Yeast Like Organism 11/01/20 Gram Stain - Final, Complete 11/01/20 Sputum Culture - Final, Complete Yeast Like Organism 10/29/20 Blood Culture - Final, Complete NO GROWTH AFTER 5 DAYS 10/29/20 Blood Culture - Final, Complete NO GROWTH AFTER 5 DAYS GME ATTESTATION GME ATTESTATION My faculty preceptor for this patient encounter was physically present during the encounter and was fully available. All aspects of the patient interview, examination, medical decision making process, and medical care plan development were reviewed and approved by the faculty preceptor. The faculty preceptor is aware and concurs with the plan as stated in the body of this note and will attest to such by his/her cosignature. ATTENDING NOTE I, Betty Montez, have independently examined this patient and performed my own physical exam, as well as reviewed the documentation and edited where necessary. I have discussed in detail with the resident / student the findings and plan of treatment as documented by the resident / student and edited their note. I agree with their findings and treatment plan and have edited their documentation. I will continue to follow the patient during this hospital stay. JUMA JUAREZ MD Nov 08, 2020 08:29 BETTY MONTEZ MD Nov 08, 2020 16:28
--- NOTE | 2020-11-08 12:14 | CCN ---
CRITICAL CARE NOTE DATE: 11/08/2020 I again attended [facility] here in the intensive care unit (ICU). Patient has been examined, chart reviewed. He is currently on maximal VapoTherm. Oxygen saturation remains anywhere from 88%-92%. With conversation, however, he drifts as low as 83%. He is otherwise fairly comfortable. Maximum temperature overnight 98 degrees, blood pressure 160s to 170s, heart rate generally in the 70s to 80s with occasional premature ventricular contractions (PVCs), respiratory rate in mid to upper 20 without accessory muscle use. Intake and output midnight to midnight 840 mL in with 1425 mL out. Most recent laboratories show white blood count 11.9, hemoglobin 13.0, platelet count 404,000. Sodium 138, potassium 3.6, chloride 103, CO2 of 26, BUN 25, creatinine 1.12. CRP unchanged at 7.25. Ferritin mildly diminished from yesterday, down to 843. D-dimer down from yesterday, now at 2900. On exam, he is awake, alert, and appropriate. Fairly comfortably lying in the left lateral decubitus position. Pupils reactive. Sclerae clear. Trachea is midline. Lungs show diminished but reasonably symmetric expansion. There are some fine dependent crackles but no convincing egophony, wheezes, or rubs. Cardiac exam is distant. There is some ectopy. Peripheral pulses palpable. No evidence of edema. Abdomen soft with active bowel sounds. No convincing organomegaly or masses. Extremities: No cyanosis or clubbing. Neurologically, as outlined above. IMPRESSION: Hypoxemia secondary to COVID-19 pneumonia. RECOMMENDATIONS: At this point, I had a long discussion with him regarding his current status. Initially he was very resistant to continuous positive airway pressure (CPAP), but in view of the above, I do think it is worthwhile to attempt. We will try CPAP at 10 cm of water pressure and titrate his oxygen as needed. He has shown some mild improvement in his inflammatory markers, and hopefully with recruitment and improvement in his oxygenation, we can continue to see an improvement, but only time will tell. He does remain a full code. He will be allowed breaks off of CPAP to VapoTherm or high-flow oxygen, whatever he will tolerate to maintain nutrition. He remains on Lovenox. He has completed other therapy for his COVID. He remains on Decadron 6 mg every 24 hours as well. We will proceed as outlined above. His status remains marginal. Further recommendations will be made in the progress record as new information becomes available.
[2020-11-08 16:00] VITALS: BP 195/91
[2020-11-08 20:00] VITALS: BP 169/82
[2020-11-08] MEDS: LEVEMIR (INSULIN DETEMIR) 1 UNITS/0.01ML SC SCH (20:49)
[2020-11-09] VITALS: BP 175/79
[2020-11-09] MEDS: IPRATROPIUM 0.5MG/ALBUTEROL 2.5MG INH SOL UD 3ML (DUONEB) NEB SCH ×4 (01:54→21:10)
[2020-11-09 04:00] VITALS: BP 145/67
[2020-11-09 05:34] LABS: HEMATOCRIT 38.9 % (42.0-52.0); MEAN CORPUSCULAR HEMOGLOBIN 29.7 pg (27.0-33.0); MEAN CORPUSCULAR HGB CONC 33.4 g/dl (32.0-36.5); PLATELET COUNT, AUTOMATED 426 10^3/uL (150-450); RED BLOOD COUNT 4.37 10^6/uL (4.30-6.10); WHITE BLOOD COUNT 12.6 10^3/uL (4.0-10.0)
[2020-11-09 05:51] LABS: D-DIMER QUANT 2289.81 ng/ml (<500)
[2020-11-09 06:03] LABS: ALT/SGPT 24 U/L (12-78); BILIRUBIN,TOTAL 0.4 MG/DL (0.2-1.0); BLOOD UREA NITROGEN 20 MG/DL (7-18); CALCIUM LEVEL 8.6 MG/DL (8.8-10.2); CARBON DIOXIDE LEVEL 27 MEQ/L (21-32); CHLORIDE LEVEL 102 MEQ/L (98-107); CREATININE FOR GFR 1.03 MG/DL (0.70-1.30); FERRITIN 933 NG/ML (26-388); GLOMERULAR FILTRATION RATE > 60.0 (>42); GLUCOSE, FASTING 109 MG/DL (70-100); LDH LACTATE DEHYDROGENASE 285 U/L (87-241); POTASSIUM SERUM 3.7 MEQ/L (3.5-5.1); SODIUM LEVEL 137 MEQ/L (136-145); TOTAL PROTEIN 6.8 GM/DL (6.4-8.2)
[2020-11-09] MEDS: HumaLOG INSULIN (NovoLOG) PER UNIT SC SCH ×4 (07:30→21:00)
[2020-11-09 07:51] LABS: C REACTIVE PROTEIN QUANTITATIV 9.26 MG/DL (0.00-0.30)
[2020-11-09 09:00] VITALS: BP 152/74
[2020-11-09] MEDS: SENOKOT S TAB PO SCH ×2 (09:00→09:36)
[2020-11-09] MEDS: dexameTHASONE 20MG/5ML VIAL (J1100 PER 1MG) IV SCH (09:35)
[2020-11-09] MEDS: ENOXAPARIN 40MG/0.4ML SYRINGE (J1650 PER 10MG) SC SCH ×2 (09:35→20:52)
[2020-11-09] MEDS: K-PHOS NEUTRAL 250MG TABLET (SOD.PHOSPHATE/POT.PHOSPHATE) PO SCH ×3 (09:36→20:52)
[2020-11-09] MEDS: PANTOPRAZOLE 40MG TAB (PROTONIX) PO SCH (09:37)
[2020-11-09] MEDS: atenoloL 25 MG TAB PO SCH ×2 (09:37→20:52)
[2020-11-09] MEDS ORDERED: FUROSEMIDE 20MG/2ML VIAL (J1940) IV ONE (10:00)
[2020-11-09 12:00] VITALS: BP 164/81
--- NOTE | 2020-11-09 13:48 | IPNPDOC ---
Text Note Date of Service The patient was seen on 11/09/20. NOTE Subjective: Patient is a 70-year-old male with a PMHx of HTN, DM2, CKD3, who presented to the ER with worsening shortness of breath that has been ongoing for since 10/18. Patient had tested positive for COVID19 on 10/27. . He was admitted to the hospital service for further evaluation and treatment. Patient had a decline in his status and was upgraded to ICU because of worsening hypoxia. Patient was seen and examined at the bedside. On patient reports that he feels relatively fine. Reports that he is short of breath. Reports a mild cough. Denies any nausea, vomiting, abdominal pain, diarrhea, or urinary discomfort. Objective: Vitals (See below) General: Lying in bed, appears comfortable, AAOx3 HEENT: NC, AT, currently off of CPAP on Vapotherm therapy CVS: +S1S2 Lungs: Fair air entry b/l, no appreciable wheezing, rhonchi or rales Abdomen: Soft, ND, NT Extremities: Lower extremities are without any significant edema, - Calf tenderness Assessment and plan: Acute hypoxic respiratory failure - likely 2/2 COVID19 PNA - Currently patient reports that his breathing is doing relatively fine, still reports a mild cough - Patient is still significantly hypoxic and has been transitioning between Vapotherm CPAP therapy - Inflammatory markers appear relatively unchanged - Sputum cultures 11/01; 11/04: [place] organisms - c/w Dexamethasone (Day #11) - s/p Ceftriaxone (7 day course); will continue to trend PCT; if continues upward trend will consider restarting antibiotics - Will start Diflucan today (Day #1) - c/w incentive spirometry and symptomatic control - Pulmonology on consultation; given prolonged course of infection there is concern for fibrotic stage at this time s/p Lactic acidosis IDDM2 with hyperglycemia - c/w ISS and Levemir s/p JONATHAN on CKD - Cr baseline of 1.0-1.1 - Cr currently at baseline HTN - BP well controlled - c/w atenolol Chronic back pain - c/w [place] GI prophylaxis - c/w Protonix DVT prophylaxis - c/w Lovenox weight-based prophylactic dosing Disposition: - Awaiting clinical improvement VS,Imtiaz, I+O VS, Imtiaz, I+O Laboratory Tests 11/09/20 05:10 Vital Signs Date Time Temp Pulse Resp B/P (MAP) Pulse Ox O2 Delivery O2 Flow Rate FiO2 11/09/20 09:37 87 152/74 11/09/20 09:00 97.4 25 82 HVNI-Vapotherm 40.0 100 I&O- Last 24 Hours up to 6 AM 11/09/20 06:00 Intake Total 1020 ml Output Total 1675 ml Balance -655 ml VINICIO MONTEZ MD Nov 09, 2020 13:48
--- NOTE | 2020-11-09 15:58 | CCN ---
CRITICAL CARE NOTE DATE: 11/09/2020 SUBJECTIVE: I again attended [facility] here in the intensive care unit The patient has been examined, chart reviewed. I spoke at length with the nurse, as well as respiratory therapist at the bedside. OBJECTIVE: T-max overnight 98.0, blood pressure 140s to 170s, heart rate generally in the 80s with some ectopy and respiratory rate in the low 20s without accessory muscle use. Input and output midnight to midnight 780 cc in with 1625 cc out He tolerated CPAP quite well and said it was comfortable for him. He had significant improvement in his oxygen saturations while on it. White blood cell count 12.6, hemoglobin 13.0, platelet count 426,000. Sodium 137, potassium 3.7, chloride 102, Co2 27, BUN 20, creatinine 1.03, glucose of 109. D-dimer down to 2289 today. Ferritin essentially unchanged at 933. C-reactive protein up from yesterday at 9.26. IMPRESSION: 1. COVID pneumonia. 2. Hypoxemia, multifactorial. 3. Type 2 diabetes 4. Acute kidney injury. 5. Hypertension. PLAN: At this point, we will continue his current medication regimen. His list has been reviewed. I am in agreement as above. He is tolerating the CPAP. He is able to be off it a little longer for the last several hours as well. Will continue that as tolerated as he has shown improvement. We will recheck a chest x-ray tomorrow. He does prone when asked and hopefully he can tolerate that a little further. Will see how he does maybe even being out of bed. He is able to tolerated an enteral diet. Overall, his prognosis remains guarded. Will proceed as outlined above. Further recommendations will be in the progress records as new information is available.
[2020-11-09 16:00] VITALS: BP 174/84
[2020-11-09] MEDS: FLUCONAZOLE 200 MG in IV 1 EA IV SCH (16:04)
[2020-11-09 20:00] VITALS: BP 198/91
[2020-11-09] MEDS: LEVEMIR (INSULIN DETEMIR) 1 UNITS/0.01ML SC SCH (20:53)
[2020-11-10] VITALS: BP 187/81
[2020-11-10] MEDS: IPRATROPIUM 0.5MG/ALBUTEROL 2.5MG INH SOL UD 3ML (DUONEB) NEB SCH ×4 (02:00→20:30)
[2020-11-10 04:00] VITALS: BP 128/66
[2020-11-10 04:29] LABS: HEMATOCRIT 36.6 % (42.0-52.0); HEMOGLOBIN 12.5 g/dl (13.5-17.5); MEAN CORPUSCULAR HEMOGLOBIN 30.7 pg (27.0-33.0); MEAN CORPUSCULAR HGB CONC 34.2 g/dl (32.0-36.5); MEAN CORPUSCULAR VOLUME 89.9 fl (80.0-96.0); PLATELET COUNT, AUTOMATED 396 10^3/uL (150-450); RED BLOOD COUNT 4.07 10^6/uL (4.30-6.10); WHITE BLOOD COUNT 13.6 10^3/uL (4.0-10.0)
[2020-11-10 04:49] LABS: D-DIMER QUANT 1711.82 ng/ml (<500)
[2020-11-10 05:01] LABS: ALBUMIN 1.8 GM/DL (3.2-5.2); ALT/SGPT 20 U/L (12-78); BILIRUBIN,TOTAL 0.4 MG/DL (0.2-1.0); BLOOD UREA NITROGEN 18 MG/DL (7-18); CALCIUM LEVEL 8.6 MG/DL (8.8-10.2); CARBON DIOXIDE LEVEL 24 MEQ/L (21-32); CHLORIDE LEVEL 105 MEQ/L (98-107); CREATININE FOR GFR 0.89 MG/DL (0.70-1.30); FERRITIN 882 NG/ML (26-388); GLOMERULAR FILTRATION RATE > 60.0 (>42); GLUCOSE, FASTING 86 MG/DL (70-100); LDH LACTATE DEHYDROGENASE 211 U/L (87-241); POTASSIUM SERUM 3.2 MEQ/L (3.5-5.1); SODIUM LEVEL 138 MEQ/L (136-145); TOTAL PROTEIN 7.2 GM/DL (6.4-8.2)
[2020-11-10] MEDS: HumaLOG INSULIN (NovoLOG) PER UNIT SC SCH ×4 (07:30→21:34)
[2020-11-10 08:00] VITALS: BP 163/78
[2020-11-10] MEDS: LevoFLOXacin 500 MG TABLET PO SCH (08:33)
[2020-11-10] MEDS: SENOKOT S TAB PO SCH (09:00)
[2020-11-10] MEDS ORDERED: POTASSIUM CHLORIDE 10 MEQ SR TABLET PO ONE (09:00)
[2020-11-10] MEDS: K-PHOS NEUTRAL 250MG TABLET (SOD.PHOSPHATE/POT.PHOSPHATE) PO SCH ×3 (09:06→21:33)
[2020-11-10] MEDS: PANTOPRAZOLE 40MG TAB (PROTONIX) PO SCH (09:06)
[2020-11-10] MEDS: atenoloL 25 MG TAB PO SCH ×2 (09:06→21:34)
[2020-11-10] MEDS: ENOXAPARIN 40MG/0.4ML SYRINGE (J1650 PER 10MG) SC SCH ×2 (09:07→21:34)
[2020-11-10] MEDS: dexameTHASONE 20MG/5ML VIAL (J1100 PER 1MG) IV SCH (09:07)
--- NOTE | 2020-11-10 11:14 | IPNPDOC ---
Text Note Date of Service The patient was seen on 11/10/20. NOTE Subjective: Patient is a 70-year-old male with a PMHx of HTN, DM2, CKD3, who presented to the ER with worsening shortness of breath that has been ongoing for since 10/18. Patient had tested positive for COVID19 on 10/27. . He was admitted to the hospital service for further evaluation and treatment. Patient had a decline in his status and was upgraded to ICU because of worsening hypoxia. Patient was seen and examined at the bedside. Patient is sitting up in bed, does not appear to be in any distress. Denies any chest pain. Reports a cough. Reports that his previous doing better. Denies any nausea, vomiting, abdominal pain, diarrhea, or urinary discomfort. Objective: Vitals (See below) General: Lying in bed, no acute distress, is awake, alert and oriented 3 HEENT: NC, AT, on Vapotherm therapy CVS: +S1S2 Lungs: Fair entry appears to be fair bilaterally, mild crackles at bases. No wheezing or rhonchi Abdomen: Soft, distended and nontender Extremities: No significant edema, - Calf tenderness Imaging: CXR (11/07): Decreased inspiratory effort with increased bilateral consolidations. Assessment and plan: Acute hypoxic respiratory failure - likely 2/2 COVID19 PNA; possibly 2/2 superimposed bacterial infection - Clinically reports he's doing better - Patient is still significantly hypoxic but remains on Vapotherm therapy - Inflammatory markers worsening - Sputum cultures 11/01; 11/04: Yeast like organisms - c/w Dexamethasone (Day #11) - Will start Levaquin today (Day #1); c/w Diflucan today (Day #2); s/p Ceftriaxone (x 7 day course); Will follow PCT - c/w incentive spirometry and symptomatic control - Pulmonology on consultation; given prolonged course of infection there is concern for fibrotic stage at this time s/p Lactic acidosis IDDM2 with hyperglycemia - c/w ISS and Levemir s/p JONATHAN on CKD - Cr baseline of 1.0-1.1 - Cr currently at baseline HTN - BP well controlled - c/w atenolol Chronic back pain - c/w [place] GI prophylaxis - c/w Protonix DVT prophylaxis - c/w Lovenox weight-based prophylactic dosing Disposition: - Awaiting clinical improvement - Called and discussed case with his ; Mónica Butts; addressed all her questions and concerns VSImtiaz, I+O VS, Imtiaz, I+O Laboratory Tests 11/10/20 04:11 Vital Signs Date Time Temp Pulse Resp B/P (MAP) Pulse Ox O2 Delivery O2 Flow Rate FiO2 11/10/20 09:06 88 163/78 11/10/20 08:55 88 HVNI-Vapotherm 40.0 90 11/10/20 04:00 98.2 18 I&O- Last 24 Hours up to 6 AM 11/10/20 06:00 Intake Total 1420 ml Output Total 1950 ml Balance -530 ml VINICIO MONTEZ MD Nov 10, 2020 11:14
[2020-11-10] MEDS ORDERED: FUROSEMIDE 20MG/2ML VIAL (J1940) IV ONE (11:15)
[2020-11-10] MEDS: FLUCONAZOLE 200 MG in IV 1 EA IV SCH (11:27)
[2020-11-10 13:00] VITALS: BP 160/85
--- NOTE | 2020-11-10 13:03 | CCN ---
CRITICAL CARE NOTE DATE: 11/10/2020 I again attended [facility] here in the intensive care unit. The patient has been examined and chart reviewed. He has spent most of the time on Vapotherm, but does intermittently go on continuous positive airway pressure (CPAP). He is tolerating longer periods off of the CPAP as his appetite is improving. Oxygen saturation has remained relatively unchanged. White blood cell count 13.6, hemoglobin 12.5, platelet count 396,000. Sodium 138, potassium 3.2, chloride 105, CO2 47, BUN 18, creatinine 0.89. Ferritin down mildly at 882. C-reactive protein, however, elevated at 11.4. D-dimer is down today, however, at 1711. On exam, he is awake, alert and appropriate. Pupils reactive, sclerae clear. Chest shows some fine, dependent crackles, but no convincing rub, egophony or wheeze. Heart exam generally regular. Peripheral pulses palpable. No evidence of edema. Abdomen soft with active bowel sounds. No convincing organomegaly or masses. Extremities: No cyanosis or clubbing. Neurologically awake, alert and appropriate. Constantly conversant. IMPRESSION: 1. Hypoxemia, secondary to COVID pneumonia. 2. Type 2 diabetes 3. Acute kidney injury. 4. Hypertension. RECOMMENDATIONS: At this point, we will continue his current level of care. He is tolerating being out of bed a little bit more. His improved appetite is encouraging, as well. I am currently in agreement with his plan as is. We will wean his oxygen as we are able. This was discussed at length with him. Further recommendations will be in the progress records as new information is available.
[2020-11-10 16:00] VITALS: BP 150/80
[2020-11-10 20:00] VITALS: BP 149/73
[2020-11-10] MEDS: LEVEMIR (INSULIN DETEMIR) 1 UNITS/0.01ML SC SCH (21:34)
[2020-11-11] VITALS: BP 155/85
[2020-11-11] MEDS: IPRATROPIUM 0.5MG/ALBUTEROL 2.5MG INH SOL UD 3ML (DUONEB) NEB SCH ×4 (02:00→19:52)
[2020-11-11 04:00] VITALS: BP 162/89
[2020-11-11 05:09] LABS: HEMATOCRIT 37.1 % (42.0-52.0); HEMOGLOBIN 12.8 g/dl (13.5-17.5); MEAN CORPUSCULAR HEMOGLOBIN 30.3 pg (27.0-33.0); MEAN CORPUSCULAR HGB CONC 34.5 g/dl (32.0-36.5); MEAN CORPUSCULAR VOLUME 87.9 fl (80.0-96.0); PLATELET COUNT, AUTOMATED 436 10^3/uL (150-450); RED BLOOD COUNT 4.22 10^6/uL (4.30-6.10); WHITE BLOOD COUNT 13.3 10^3/uL (4.0-10.0)
[2020-11-11 05:28] LABS: D-DIMER QUANT 1532.72 ng/ml (<500)
[2020-11-11] MEDS: LevoFLOXacin 500 MG TABLET PO SCH (05:30)
[2020-11-11 05:35] LABS: ALBUMIN 1.8 GM/DL (3.2-5.2); ALT/SGPT 24 U/L (12-78); BILIRUBIN,TOTAL 0.5 MG/DL (0.2-1.0); BLOOD UREA NITROGEN 26 MG/DL (7-18); C REACTIVE PROTEIN QUANTITATIV 9.63 MG/DL (0.00-0.30); CALCIUM LEVEL 8.9 MG/DL (8.8-10.2); CARBON DIOXIDE LEVEL 25 MEQ/L (21-32); CHLORIDE LEVEL 103 MEQ/L (98-107); CREATININE FOR GFR 1.09 MG/DL (0.70-1.30); FERRITIN 1025 NG/ML (26-388); GLOMERULAR FILTRATION RATE > 60.0 (>42); GLUCOSE, FASTING 206 MG/DL (70-100); LDH LACTATE DEHYDROGENASE 215 U/L (87-241); POTASSIUM SERUM 3.6 MEQ/L (3.5-5.1); SODIUM LEVEL 133 MEQ/L (136-145); TOTAL PROTEIN 7.4 GM/DL (6.4-8.2)
[2020-11-11 08:00] VITALS: BP 178/84
[2020-11-11] MEDS: HumaLOG INSULIN (NovoLOG) PER UNIT SC SCH ×4 (08:25→21:00)
[2020-11-11] MEDS: SENOKOT S TAB PO SCH (09:00)
[2020-11-11] MEDS: dexameTHASONE 20MG/5ML VIAL (J1100 PER 1MG) IV SCH (09:15)
[2020-11-11] MEDS: atenoloL 25 MG TAB PO SCH ×2 (09:16→21:15)
[2020-11-11] MEDS: ENOXAPARIN 40MG/0.4ML SYRINGE (J1650 PER 10MG) SC SCH ×2 (09:16→21:16)
[2020-11-11] MEDS: PANTOPRAZOLE 40MG TAB (PROTONIX) PO SCH (09:16)
[2020-11-11] MEDS: K-PHOS NEUTRAL 250MG TABLET (SOD.PHOSPHATE/POT.PHOSPHATE) PO SCH ×3 (09:16→21:15)
--- NOTE | 2020-11-11 10:58 | ECGEPIP ---
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
--- NOTE | 2020-11-11 11:00 | ECGEPIP ---
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
--- NOTE | 2020-11-11 11:11 | ECGEPIP ---
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
--- NOTE | 2020-11-11 11:20 | IPNPDOC ---
Date Seen The patient was seen on 11/11/20. Progress Note SUBJECTIVE: 70-year-old male with a PMHx of HTN, DM2, CKD3, who presented to the ER with worsening shortness of breath that has been ongoing for since 10/18. Patient had tested positive for COVID19 on 10/27. He underwent decline in respiratory status, and was transfered to ICU for worsening hypoxia. He has difficulty tolerating NIPPV, but is compliant with vapotherm and proning. Saturating at 92% this morning, requires max settings vapotheram 40LPM at FiO2 100%. OBJECTIVE PHYSICAL EXAMINATION: VITAL SIGNS: please see below General: NAD, comfortable HEENT: PERRLA, EOMI, sclerae clear Neck: supple, normal ROM, no JVD Respiratory: mild crackles at bases, fairly clear otherwise CVS: RRR, normal S1, S2, no murmurs Abdo: soft, no masses, no hepatosplenomegaly, BS+, no rebound tenderness Extremities: no edema, pulses 2+ MSK: no joint deformities, normal ROM Neuro: no focal neuro deficits, moving all 4 extremities, CN2-12 intact. Strength 5/5 in all 4 extremities. No nystagmus. Psych: calm, cooperative, AAO x 3 LABORATORY DATA, IMAGING STUDIES, MICROBIOLOGY: Please see below. DVT prophylaxis ordered?: Lovenox, 0.5 mg/kg q12h ASSESSMENT AND PLAN: Acute hypoxic respiratory failure - likely 2/2 COVID19 PNA; possibly 2/2 superimposed bacterial infection - clinically appears improved, however continues to require max vapotherm - Inflammatory markers worsening - strongly encouraged proning while in bed, oob to chair - Sputum cultures 11/01; 11/04: Yeast like organisms - c/w Dexamethasone (Day #12) - Levaquin (Day #2); c/w Diflucan (Day #3); s/p Ceftriaxone (x 7 day course); Will follow PCT - c/w incentive spirometry and symptomatic control - Pulmonology on consultation; given prolonged course of infection there is concern for fibrotic stage at this time s/p Lactic acidosis IDDM2 with hyperglycemia - c/w ISS and Levemir s/p JONATHAN on CKD - Cr baseline of 1.0-1.1 - Cr currently at baseline HTN - BP well controlled - c/w atenolol Chronic back pain - c/w [place] GI prophylaxis - c/w Protonix DVT prophylaxis - c/w Lovenox weight-based prophylactic dosing Disposition: - Awaiting clinical improvement VS, I&O, 24H, Fishbone Vital Signs/I&O Vital Signs Date Time Temp Pulse Resp B/P (MAP) Pulse Ox O2 Delivery O2 Flow Rate FiO2 11/11/20 09:31 92 HVNI-Vapotherm 40.0 100 11/11/20 09:16 82 178/84 11/11/20 04:00 96.8 24 I&O- Last 24 Hours up to 6 AM 11/11/20 06:00 Intake Total 1300 ml Output Total 1600 ml Balance -300 ml Laboratory Data 24H LABS Laboratory Tests 2 11/10/20 12:45: Bedside Glucose (Misc Panel) 276H 11/10/20 17:45: Bedside Glucose (Misc Panel) 350H 11/10/20 21:13: Bedside Glucose (Misc Panel) 329H 11/11/20 04:26: Nucleated Red Blood Cells % (auto) 0.0, Fibrinogen 604H, D-Dimer, Quantitative 1532.72H, Anion Gap 5L, Glomerular Filtration Rate > 60.0, Calcium Level 8.9, Ferritin 1025H, Total Bilirubin 0.5, Aspartate Amino Transf (AST/SGOT) 12, Alanine Aminotransferase (ALT/SGPT) 24, Alkaline Phosphatase 75, Lactate Dehydrogenase 215, C-Reactive Protein, Quantitative 9.63H, Total Protein 7.4, Albumin 1.8L, Albumin/Globulin Ratio 0.3 CBC/BMP Laboratory Tests 11/11/20 04:26 Microbiology Microbiology 11/04/20 Gram Stain - Final, Complete 11/04/20 Sputum Culture - Final, Complete Yeast Like Organism 11/01/20 Gram Stain - Final, Complete 11/01/20 Sputum Culture - Final, Complete Yeast Like Organism BERTRAM HYLTON MD Nov 11, 2020 11:20
--- NOTE | 2020-11-11 11:40 | IPN ---
PULMONARY CRITICAL CARE PROGRESS NOTE DATE: 11/11/2020 CHIEF COMPLAINT: I attended [facility] here in the Intensive Care Unit. The patient was examined and the chart reviewed. He really did not want to go back on the CPAP last evening. He has a little bit more of a cough today. Saturations intermittently drifting down into the mid 80's. Currently on Vapotherm 100% with a 40 liter flow rate, he is 89 to 92%. With any cough or activity, this could desaturate. PHYSICAL EXAMINATION: VITAL SIGNS: T-max overnight 96.8, blood pressure 150 to 180, heart rate generally in the 70's to 80's, respiratory rate about 22 to 24 without obvious accessory muscle use. INTAKE AND OUTPUT: Vwsmynsy-lg-bfghdufb 1180 cc in with 2000 cc out. GENERAL: He is awake, alert and appropriate. Quite comfortable, unable to be conversant. HEENT: Membranes moist. Sclerae clear. Trachea is in the midline. LUNGS: Fairly clear today, just the rarest of rhonchi that actually clears with cough. Minimal crackles dependently. CARDIAC: Distant. Peripheral pulses palpable. No obvious edema. ABDOMEN: Soft, nontender, with active bowel sounds. No convincing organomegaly or masses EXTREMITIES: Without cyanosis or clubbing. NEUROLOGIC: He is awake, alert and appropriate. PSYCHIATRIC: Normal mood and affect. LABORATORY DATA: Most recent laboratories show white blood cell count 13.3, hemoglobin 12.8, platelet count 436,000. Sodium 133, potassium 3.6, chloride 103, CO2 25, BUN 26, creatinine 1.09. Ferritin mildly up from yesterday at 1,025. CRP down from yesterday, today at 9.63. D-Dimer continues to slowly decline at 1,532 today. IMPRESSION: 1. Hypoxemia. 2. COVID-19 pneumonia. 3. Type 2 diabetes. 4. Acute kidney injury. 5. Underlying hypertension. PLAN: At this point, I strongly urge him to spend more time on CPAP as he does benefit greatly from it. It will allow him also to be out of bed a little bit more as I believe the more we can help him work towards increasing his overall muscle strength, the better off we will be in the long run as well. He does tolerate a diet and that is a good for him as well. He remains on also DVT prophylaxis and anticoagulation under COVID-19 protocol. I am in agreement with his other medication regimen; his medication list has been reviewed. I have spoken with the nurse at the bedside regarding the above plan. We will proceed as outlined above. Further recommendations will be made in the progress record as new information becomes available. MTDD
[2020-11-11 12:00] VITALS: BP 176/94
[2020-11-11] MEDS: FLUCONAZOLE 200 MG in IV 1 EA IV SCH (12:15)
[2020-11-11 16:36] VITALS: BP 142/73
[2020-11-11 20:00] VITALS: BP 179/86
[2020-11-11 20:06] LABS: RSV AMPLIFICATION NEGATIVE (NEGATIVE)
[2020-11-11] MEDS ORDERED: RAMELTEON 8 MG TAB (ROZEREM) PO PRN (21:00)
[2020-11-11] MEDS: LEVEMIR (INSULIN DETEMIR) 1 UNITS/0.01ML SC SCH (21:16)
[2020-11-12] VITALS (106 sets, daily range): BP systolic 67–182; BP diastolic 42–97; O2SAT 91–94
[2020-11-12] MEDS: IPRATROPIUM 0.5MG/ALBUTEROL 2.5MG INH SOL UD 3ML (DUONEB) NEB SCH ×4 (02:00→19:37)
[2020-11-12] MEDS ORDERED: ALPRAZolam 0.5 MG TAB PO ONE (04:15)
[2020-11-12] MEDS ORDERED: FUROSEMIDE 40MG/4ML VIAL (J1940) IV STA (04:46)
[2020-11-12 05:28] LABS: HEMATOCRIT 38.2 % (42.0-52.0); HEMOGLOBIN 12.9 g/dl (13.5-17.5); MEAN CORPUSCULAR HEMOGLOBIN 30.3 pg (27.0-33.0); MEAN CORPUSCULAR HGB CONC 33.8 g/dl (32.0-36.5); MEAN CORPUSCULAR VOLUME 89.7 fl (80.0-96.0); PLATELET COUNT, AUTOMATED 406 10^3/uL (150-450); RED BLOOD COUNT 4.26 10^6/uL (4.30-6.10); WHITE BLOOD COUNT 16.6 10^3/uL (4.0-10.0)
[2020-11-12] MEDS ORDERED: PROPOFOL 1,000 MG/100 ML VIAL As Ordered ONE ×2 (05:31→06:33)
[2020-11-12 05:40] LABS: D-DIMER QUANT 1785.49 ng/ml (<500)
[2020-11-12 05:52] LABS: ABG BASE EXCESS -0.4 (-2.0-2.0); ABG HCO3 22.5 MEQ/L (22.0-26.0); ABG O2 SATURATION 89.1 % (95.0-99.0); ABG PARTIAL PRESSURE O2 53.7 mmHg (75.0-100.0); ABG STANDARD HCO3 23.9 MEQ/L (22.0-26.0); ABG TOTAL CO2 23.5 MEQ/L (23.0-31.0); ABG pH (ARTERIAL) 7.465 UNITS (7.350-7.450)
[2020-11-12 05:58] LABS: ALBUMIN 1.9 GM/DL (3.2-5.2); ALT/SGPT 21 U/L (12-78); BILIRUBIN,TOTAL 0.5 MG/DL (0.2-1.0); BLOOD UREA NITROGEN 24 MG/DL (7-18); CALCIUM LEVEL 8.7 MG/DL (8.8-10.2); CARBON DIOXIDE LEVEL 24 MEQ/L (21-32); CHLORIDE LEVEL 102 MEQ/L (98-107); CREATININE FOR GFR 1.02 MG/DL (0.70-1.30); FERRITIN 1275 NG/ML (26-388); GLOMERULAR FILTRATION RATE > 60.0 (>42); GLUCOSE, FASTING 185 MG/DL (70-100); LDH LACTATE DEHYDROGENASE 303 U/L (87-241); MAGNESIUM LEVEL 1.6 MG/DL (1.8-2.4); PHOSPHORUS LEVEL 4.1 MG/DL (2.5-4.9); POTASSIUM SERUM 3.7 MEQ/L (3.5-5.1); SODIUM LEVEL 137 MEQ/L (136-145); TOTAL PROTEIN 6.7 GM/DL (6.4-8.2)
--- NOTE | 2020-11-12 06:31 | IPNPDOC ---
Date Seen The patient was seen on 11/12/20. Progress Note INTERIM PROGRESS NOTE: I was called to this patient's room by nursing around 0430 who was concerned that the patient's saturations had not improved from the low to mid 80s for several hours. He had tried CPAP which was not tolerated. He was started on BiPaP with settings 16/10 100%FiO2 and continued to have oxygen saturations in the low 80s. On my examination, the patient had crackles in bilateral bases, so I ordered a one time dose 40mg IV Lasix. The patient was somewhat tired- appearing and lethargic. AB.465/[id number]/53 I personally spoke to the patient at that time and explained the risks and benefits of intubation, including the fact that there is a chance he will not be able to be extubated. The patient voiced understanding and wished to proceed with intubation. Anesthesia was called and will proceed with intubation at this time. VS, I&O, 24H, Fishbone Vital Signs/I&O Vital Signs Date Time Temp Pulse Resp B/P (MAP) Pulse Ox O2 Delivery O2 Flow Rate FiO2 11/12/20 05:09 100 11/12/20 05:00 84 88 NIPPV (BIPAP/CPAP) 11/12/20 04:15 36 11/12/20 04:00 97.8 145/81 (102) 11/12/20 03:00 40.0 I&O- Last 24 Hours up to 6 AM 11/12/20 06:00 Intake Total 660 ml Output Total 950 ml Balance -290 ml Laboratory Data 24H LABS Laboratory Tests 2 11/11/20 11:59: Bedside Glucose (Misc Panel) 315H 11/11/20 17:25: Bedside Glucose (Misc Panel) 222H 11/11/20 18:19: Coronavirus (COVID-19)(PCR) NEGATIVE, Influenza Type A (RT-PCR) NEGATIVE, Influenza Type B (RT-PCR) NEGATIVE, Respiratory Syncytial Virus (PCR) NEGATIVE 11/11/20 20:50: Bedside Glucose (Misc Panel) 215H 11/12/20 04:57: Nucleated Red Blood Cells % (auto) 0.0, Fibrinogen 628H, D-Dimer, Quantitative 1785.49H, Anion Gap 11, Glomerular Filtration Rate > 60.0, Calcium Level 8.7L, Phosphorus Level 4.1, Magnesium Level 1.6L, Ferritin 1275H, Total Bilirubin 0.5, Aspartate Amino Transf (AST/SGOT) 13, Alanine Aminotransferase (ALT/SGPT) 21, Alkaline Phosphatase 88, Lactate Dehydrogenase 303H, C-Reactive Protein, Quantitative 12.90H, Total Protein 6.7, Albumin 1.9L, Albumin/Globulin Ratio 0.4 11/12/20 05:40: Blood Gas Bicarbonate Standard 23.9, Arterial Blood pH 7.465H, Arterial Blood Partial Pressure CO2 32.0L, Arterial Blood Partial Pressure O2 53.7L, Arterial Blood Total CO2 23.5, Arterial Blood HCO3 22.5, Arterial Blood Base Excess -0.4, Arterial Blood Oxygen Saturation 89.1L CBC/BMP Laboratory Tests 11/12/20 04:57 Microbiology Microbiology 11/04/20 Gram Stain - Final, Complete 11/04/20 Sputum Culture - Final, Complete Yeast Like Organism GME ATTESTATION GME ATTESTATION My faculty preceptor for this patient encounter was physically present during the encounter and was fully available. All aspects of the patient interview, examination, medical decision making process, and medical care plan development were reviewed and approved by the faculty preceptor. The faculty preceptor is aware and concurs with the plan as stated in the body of this note and will attest to such by his/her cosignature. JUMA JUAREZ MD Nov 12, 2020 06:31
[2020-11-12] MEDS ORDERED: MIDAZOLAM INJ 2MG/2ML VIAL (J2250 PER 1MG) As Ordered ONE (07:08)
[2020-11-12] MEDS: MAG SULF 1GM/100ML (MAG RUN) 1 GM in IV 1 EA IV SCH ×2 (07:25→08:33)
[2020-11-12] MEDS ORDERED: DEXTROSE 50% 50 ML SYRINGE IV PRN (07:45)
[2020-11-12] MEDS ORDERED: GLUCAGON INJ 1MG VIAL SC PRN (07:45)
[2020-11-12] MEDS ORDERED: GLUCOSE 4GM CHEW TABLET PO PRN (07:45)
--- NOTE | 2020-11-12 07:49 | REP ---
INDICATION: ETT placement COMPARISON: 11/07/2020 TECHNIQUE: Portable AP view of the chest FINDINGS: Endotracheal tube 3.5 cm above the jeramy. The mediastinum and cardiac silhouette are stable and within normal limits for portable technique. Diffuse bilateral pulmonary infiltrates are again noted. Specifically, right sided opacities may be slightly increased from prior examination while left-sided opacities appear mildly improved. No obvious effusion. No pneumothorax. IMPRESSION: Bilateral pulmonary infiltrates again noted as above. <Electronically signed by Aaron Hunt > 11/12/20 0777
[2020-11-12] MEDS: propofoL 1,000 MG in IV 1 EA IV SCH ×4 (07:56→23:14)
[2020-11-12] MEDS: MIDAZOLAM INJ 2MG/2ML VIAL (J2250 PER 1MG) IV PRN ×7 (07:57→18:10)
[2020-11-12] MEDS: CHLORHEXIDINE GLUCONATE 0.12 % 15ML UDC (PERIDEX ORAL RINSE) MT SCH ×2 (08:33→20:38)
[2020-11-12] MEDS: ENOXAPARIN 40MG/0.4ML SYRINGE (J1650 PER 10MG) SC SCH ×2 (08:33→20:38)
[2020-11-12] MEDS: HumaLOG INSULIN (NovoLOG) PER UNIT SC SCH ×4 (08:33→23:24)
[2020-11-12] MEDS: PANTOPRAZOLE 40MG TAB (PROTONIX) PO SCH (08:34)
[2020-11-12] MEDS: LevoFLOXacin 500 MG TABLET PO SCH (08:35)
[2020-11-12] MEDS: K-PHOS NEUTRAL 250MG TABLET (SOD.PHOSPHATE/POT.PHOSPHATE) PO SCH ×3 (08:35→20:38)
[2020-11-12] MEDS: SENOKOT S TAB PO SCH (08:35)
[2020-11-12] MEDS: atenoloL 25 MG TAB PO SCH ×2 (09:00→21:00)
--- NOTE | 2020-11-12 09:39 | IPNPDOC ---
Date Seen The patient was seen on 11/12/20. Progress Note SUBJECTIVE: 70-year-old male with a PMHx of HTN, DM2, CKD3, who presented to the ER with worsening shortness of breath that has been ongoing for since 10/18. Patient had tested positive for COVID19 on 10/27. He underwent decline in respiratory status, and was transfered to ICU for worsening hypoxia. Patient developed hypoxia early this morning, and could not tolerate CPAP. Switched to BiPAP but continued to desaturate to low 80s. Patient had decided to proceed with intubation, explained that he may not be able to be extubated. Patient wishes to proceed. OBJECTIVE PHYSICAL EXAMINATION: VITAL SIGNS: please see below General: NAD, comfortable HEENT: PERRLA, EOMI, sclerae clear Neck: supple, normal ROM, no JVD Respiratory: mild crackles at bases, fairly clear otherwise CVS: RRR, normal S1, S2, no murmurs Abdo: soft, no masses, no hepatosplenomegaly, BS+, no rebound tenderness Extremities: no edema, pulses 2+ MSK: no joint deformities, normal ROM Neuro: no focal neuro deficits, moving all 4 extremities, CN2-12 intact. Strength 5/5 in all 4 extremities. No nystagmus. Psych: calm, cooperative, AAO x 3 LABORATORY DATA, IMAGING STUDIES, MICROBIOLOGY: Please see below. DVT prophylaxis ordered?: Lovenox, 0.5 mg/kg q12h ASSESSMENT AND PLAN: Acute hypoxic respiratory failure - likely 2/2 COVID19 PNA; possibly 2/2 superimposed bacterial infection - poorly tolerated bipap, hypoxic on vapotherm, intubated overnight - Inflammatory markers worsening - Sputum cultures 11/01; 11/04: Yeast like organisms - c/w Dexamethasone (Day #13) - Levaquin (Day #3); c/w Diflucan (Day #4); s/p Ceftriaxone (x 7 day course); Will follow PCT - c/w incentive spirometry and symptomatic control - Pulmonology on consultation; given prolonged course of infection there is concern for fibrotic stage at this time - poor prognosis IDDM2 with hyperglycemia - c/w ISS and Levemir Hypomagnesemia - replace s/p JONATHAN on CKD - Cr baseline of 1.0-1.1 - Cr currently at baseline HTN - BP well controlled - c/w atenolol Chronic back pain - c/w [place] GI prophylaxis - c/w Protonix DVT prophylaxis - c/w Lovenox weight-based prophylactic dosing Disposition: - Awaiting clinical improvement, presently intubated - poor prognosis - spoke with spouse Mónica Butts and updated her as to progress and answered all questions in detail. VS, I&O, 24H, Fishbone Vital Signs/I&O Vital Signs Date Time Temp Pulse Resp B/P (MAP) Pulse Ox O2 Delivery O2 Flow Rate FiO2 11/12/20 09:00 81 96/54 (68) 90 Ventilator 100 11/12/20 08:20 32 11/12/20 07:40 97.3 11/12/20 03:00 40.0 I&O- Last 24 Hours up to 6 AM 11/12/20 06:00 Intake Total 660 ml Output Total 950 ml Balance -290 ml Laboratory Data 24H LABS Laboratory Tests 2 11/11/20 11:59: Bedside Glucose (Misc Panel) 315H 11/11/20 17:25: Bedside Glucose (Misc Panel) 222H 11/11/20 18:19: Coronavirus (COVID-19)(PCR) NEGATIVE, Influenza Type A (RT-PCR) NEGATIVE, Influenza Type B (RT-PCR) NEGATIVE, Respiratory Syncytial Virus (PCR) NEGATIVE 11/11/20 20:50: Bedside Glucose (Misc Panel) 215H 11/12/20 04:57: Nucleated Red Blood Cells % (auto) 0.0, Fibrinogen 628H, D-Dimer, Quantitative 1785.49H, Anion Gap 11, Glomerular Filtration Rate > 60.0, Calcium Level 8.7L, Phosphorus Level 4.1, Magnesium Level 1.6L, Ferritin 1275H, Total Bilirubin 0.5, Aspartate Amino Transf (AST/SGOT) 13, Alanine Aminotransferase (ALT/SGPT) 21, Alkaline Phosphatase 88, Lactate Dehydrogenase 303H, C-Reactive Protein, Quantitative 12.90H, Total Protein 6.7, Albumin 1.9L, Albumin/Globulin Ratio 0.4 11/12/20 05:40: Blood Gas Bicarbonate Standard 23.9, Arterial Blood pH 7.465H, Arterial Blood Partial Pressure CO2 32.0L, Arterial Blood Partial Pressure O2 53.7L, Arterial Blood Total CO2 23.5, Arterial Blood HCO3 22.5, Arterial Blood Base Excess -0.4, Arterial Blood Oxygen Saturation 89.1L CBC/BMP Laboratory Tests 11/12/20 04:57 Microbiology Microbiology 11/04/20 Gram Stain - Final, Complete 11/04/20 Sputum Culture - Final, Complete Yeast Like Organism BERTRAM HYLTON MD Nov 12, 2020 09:38
[2020-11-12] MEDS: dexameTHASONE 20MG/5ML VIAL (J1100 PER 1MG) IV SCH (09:41)
--- NOTE | 2020-11-12 10:29 | ECGEPIP ---
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
[2020-11-12] MEDS ORDERED: SODIUM CHLORIDE 0.9% 1000ML IV ONE (10:45)
--- NOTE | 2020-11-12 10:53 | CCN ---
CRITICAL CARE NOTE DATE: 11/12/2020 START TIME: 0950 STOP TIME: 2 SUBJECTIVE: I again attended [facility]. The patient has been examined and chart was reviewed. Earlier this morning due to decreasing oxygen saturation levels, he was intubated by the anesthesia COVID intubation team. He has had some difficulties with mild hypotension, but has not received any IV fluid at this point. OBJECTIVE: VITAL SIGNS: T-max overnight 97.8, blood pressure 67 to 180, heart rate generally in the 70s, respiratory rate 25 to 30 without accessory muscle. INTAKE AND OUTPUT: Gbttlkwy-ok-vxtcjtdw only 700 mL in with 800 mL out. GENERAL APPEARANCE: He is sedate. HEENT: Pupils react. Sclerae clear. Trachea is midline. CHEST: Fairly clear anteriorly. There are some find dependent crackles. No convincing rhonchi. CARDIAC: Fairly distant. Peripheral pulses diminished, but palpable. ABDOMEN: Soft. There are active bowel sounds. EXTREMITIES: No cyanosis or clubbing. NEUROLOGIC: He is sedate. IMAGING: Chest x-ray done this morning post-intubation does show his bilateral infiltrates actually less dense than several days ago, but this is with the addition of positive pressure. LABORATORY DATA: Other laboratories show a sodium of 137, K of 3.7, chloride 102, CO2 of 24, BUN 24, creatinine 1.02, glucose 185. Ferritin mildly up at 1275. Alkaline phosphatase 303. CRP 12.9. D-dimer 1785 a little up from yesterday. White blood cell count 16.6, hemoglobin 12.9, platelet count 406,000. Blood gas done on his current ventilator PRVC rate of 15, tidal volume 400, PEEP is currently pending. ASSESSMENT AND PLAN: Most pressing problems requiring my presence at the bedside 1. COVID pneumonia now with progressive respiratory failure. 2. Respiratory failure requiring mechanical ventilatory support. 3. Diabetes. 4. Acute kidney injury. 5. Underlying hypertension. At this point, we await the blood gas on his current ventilator settings. I do believe he needs more intravenous (IV) fluids and these will be ordered. I am in agreement with the remainder of his regimen. He remains on ulcer and deep vein thrombosis (DVT) prophylaxis. Overall, he is critically ill. Prognosis regarding intubation in these patients now late in their course with COVID certainly tends to a poor prognosis, but we will see how that goes. I am more concerned currently at this moment with his hemodynamic status. We will adjust his ventilator as need be, but we have been able to decrease his FiO2 somewhat. At this point, he remains quite critically ill. I left the bedside at 1032 hours. CRITICAL CARE TIME: 42 minutes delivered at the bedside not including procedures.
[2020-11-12] MEDS: KCL 20MEQ IN D5/0.45NS 1000ML 1,000 ML IV SCH ×2 (11:08→18:08)
[2020-11-12] MEDS: FLUCONAZOLE 200 MG in IV 1 EA IV SCH (11:08)
[2020-11-12 11:23] LABS: ABG BASE EXCESS -0.4 (-2.0-2.0); ABG HCO3 23.8 MEQ/L (22.0-26.0); ABG O2 SATURATION 89.7 % (95.0-99.0); ABG PARTIAL PRESSURE CO2 37.5 mmHg (35.0-45.0); ABG PARTIAL PRESSURE O2 59.3 mmHg (75.0-100.0); ABG pH (ARTERIAL) 7.421 UNITS (7.350-7.450)
[2020-11-12] MEDS ORDERED: NS 1,000 ML IV ONE (17:45)
[2020-11-13] VITALS (63 sets, daily range): BP systolic 100–147; BP diastolic 54–89; O2SAT 92–93
[2020-11-13] MEDS: IPRATROPIUM 0.5MG/ALBUTEROL 2.5MG INH SOL UD 3ML (DUONEB) NEB SCH ×4 (00:30→21:07)
[2020-11-13] MEDS: KCL 20MEQ IN D5/0.45NS 1000ML 1,000 ML IV SCH ×4 (01:50→20:42)
[2020-11-13] MEDS: propofoL 1,000 MG in IV 1 EA IV SCH ×5 (02:38→21:30)
[2020-11-13 04:54] LABS: HEMATOCRIT 30.3 % (42.0-52.0); MEAN CORPUSCULAR HEMOGLOBIN 30.9 pg (27.0-33.0); MEAN CORPUSCULAR HGB CONC 34.3 g/dl (32.0-36.5); MEAN CORPUSCULAR VOLUME 89.9 fl (80.0-96.0); RED BLOOD COUNT 3.37 10^6/uL (4.30-6.10); WHITE BLOOD COUNT 15.6 10^3/uL (4.0-10.0)
[2020-11-13 05:07] LABS: HEMOGLOBIN 10.4 g/dl (13.5-17.5); PLATELET COUNT, AUTOMATED 298 10^3/uL (150-450)
[2020-11-13] MEDS: MIDAZOLAM INJ 2MG/2ML VIAL (J2250 PER 1MG) IV PRN ×6 (05:29→20:43)
[2020-11-13 05:35] LABS: ALBUMIN 1.6 GM/DL (3.2-5.2); BILIRUBIN,TOTAL 0.1 MG/DL (0.2-1.0); C REACTIVE PROTEIN QUANTITATIV 16.4 MG/DL (0.00-0.30); CALCIUM LEVEL 7.7 MG/DL (8.8-10.2); CREATININE FOR GFR 1.64 MG/DL (0.70-1.30); GLOMERULAR FILTRATION RATE 44.3 (>42); POTASSIUM SERUM 4.4 MEQ/L (3.5-5.1); TOTAL PROTEIN 5.8 GM/DL (6.4-8.2)
[2020-11-13 06:06] LABS: ABG BASE EXCESS -4.2 (-2.0-2.0); ABG HCO3 20.8 MEQ/L (22.0-26.0); ABG O2 SATURATION 96.6 % (95.0-99.0); ABG PARTIAL PRESSURE CO2 37.6 mmHg (35.0-45.0); ABG PARTIAL PRESSURE O2 95.5 mmHg (75.0-100.0); ABG STANDARD HCO3 20.9 MEQ/L (22.0-26.0); ABG TOTAL CO2 21.9 MEQ/L (23.0-31.0)
[2020-11-13] MEDS: LevoFLOXacin 500 MG TABLET PO SCH (06:11)
[2020-11-13] MEDS: HumaLOG INSULIN (NovoLOG) PER UNIT SC SCH ×3 (06:11→18:04)
[2020-11-13 06:30] LABS: D-DIMER QUANT 1830.06 ng/ml (<500)
[2020-11-13] MEDS ORDERED: propofoL 200 MG/20 ML VIAL ONE (07:29)
[2020-11-13] MEDS ORDERED: SUCCINYLCHOLINE 100 MG/5 ML SYRINGE (J0330) ONE (07:29)
[2020-11-13] MEDS: ENOXAPARIN 40MG/0.4ML SYRINGE (J1650 PER 10MG) SC SCH ×2 (09:11→20:44)
[2020-11-13] MEDS: CHLORHEXIDINE GLUCONATE 0.12 % 15ML UDC (PERIDEX ORAL RINSE) MT SCH ×2 (09:11→20:44)
[2020-11-13] MEDS: K-PHOS NEUTRAL 250MG TABLET (SOD.PHOSPHATE/POT.PHOSPHATE) PO SCH ×3 (09:11→20:42)
[2020-11-13] MEDS: SENOKOT S TAB PO SCH (09:11)
[2020-11-13] MEDS: dexameTHASONE 20MG/5ML VIAL (J1100 PER 1MG) IV SCH (09:11)
[2020-11-13] MEDS: PANTOPRAZOLE 40MG TAB (PROTONIX) PO SCH (09:12)
[2020-11-13] MEDS: atenoloL 25 MG TAB PO SCH ×2 (09:12→20:43)
[2020-11-13] MEDS ORDERED: MAG SULF 1GM/100ML (MAG RUN) 1 GM in IV 1 EA IV ONE (10:15)
[2020-11-13 10:26] LABS: MAGNESIUM LEVEL 2.1 MG/DL (1.8-2.4)
--- NOTE | 2020-11-13 10:46 | IPNPDOC ---
Date Seen The patient was seen on 11/13/20. Progress Note SUBJECTIVE: 70-year-old male with a PMHx of HTN, DM2, CKD3, who presented to the ER with worsening shortness of breath that has been ongoing for since 10/18. Patient had tested positive for COVID19 on 10/27. He underwent decline in respiratory status, and was transfered to ICU for worsening hypoxia. Presently remains intubated. No acute events overnight. Had issues with hypotension on 11/12/20, but responded well to 2L NS bolus, now VSS. He is alert enough to give me a thumbs up. OBJECTIVE PHYSICAL EXAMINATION: VITAL SIGNS: please see below General: NAD, comfortable HEENT: PERRLA, EOMI, sclerae clear. ETT in place Neck: supple, normal ROM, no JVD Respiratory: mild crackles at bases, fairly clear otherwise CVS: RRR, normal S1, S2, no murmurs Abdo: soft, no masses, no hepatosplenomegaly, BS+, no rebound tenderness Extremities: no edema, pulses 2+ MSK: no joint deformities, normal ROM Neuro: no focal neuro deficits, moving all 4 extremities, CN2-12 intact. Strength 5/5 in all 4 extremities. No nystagmus. LABORATORY DATA, IMAGING STUDIES, MICROBIOLOGY: Please see below. DVT prophylaxis ordered?: Lovenox, 0.5 mg/kg q12h ASSESSMENT AND PLAN: Acute hypoxic respiratory failure - likely 2/2 COVID19 PNA; possibly 2/2 superimposed bacterial infection - intubated - Sputum cultures 11/01; 11/04: Yeast like organisms - s/p Dexamethasone (Day #14), reviewed and appreciate recs from pulm, taper down dexamethasone to solumedrol. - Levaquin (Day #4); s/p Ceftriaxone (x 7 day course); s/p fluconazole 5 days Will follow PCT - c/w incentive spirometry and symptomatic control - Pulmonology on consultation; given prolonged course of infection there is concern for fibrotic stage at this time IDDM2 with hyperglycemia - c/w ISS - resume levemir 30 units qam Hypomagnesemia - replace s/p JONATHAN on CKD - Sharp increase in Cr to 1.64 - possible nephrotoxicity observed from levaquin and fluconazole - discussed with Dr. Sharma, advised to DC fluconazole as likely asymptomatic ca ndiuria - advised [place] cath, and to DC valladares - renally dose meds by pharmacy - Cr baseline of 1.0-1.1 - Cr currently at baseline HTN - BP well controlled - c/w atenolol Chronic back pain - c/w [place] GI prophylaxis - c/w Protonix DVT prophylaxis - c/w Lovenox weight-based prophylactic dosing Disposition: - Awaiting clinical improvement, presently intubated - guarded prognosis - I updated patient Mrs. Gala Butts, and answered all questions in detail. VS, I&O, 24H, Fishbone Vital Signs/I&O Vital Signs Date Time Temp Pulse Resp B/P (MAP) Pulse Ox O2 Delivery O2 Flow Rate FiO2 11/13/20 09:12 84 128/68 11/13/20 09:00 25 97 Ventilator 100 11/13/20 08:00 98.0 11/12/20 03:00 40.0 I&O- Last 24 Hours up to 6 AM 11/13/20 06:00 Intake Total 3869.7 ml Output Total 1650 ml Balance 2219.7 ml Laboratory Data 24H LABS Laboratory Tests 2 11/12/20 11:06: Blood Gas Bicarbonate Standard 24.0, Arterial Blood pH 7.421, Arterial Blood Partial Pressure CO2 37.5, Arterial Blood Partial Pressure O2 59.3L, Arterial Blood Total CO2 25.0, Arterial Blood HCO3 23.8, Arterial Blood Base Excess -0.4, Arterial Blood Oxygen Saturation 89.7L 11/12/20 12:16: Bedside Glucose (Misc Panel) 187H 11/12/20 18:07: Bedside Glucose (Misc Panel) 400H 11/12/20 23:22: Bedside Glucose (Misc Panel) 391H 11/13/20 04:31: Nucleated Red Blood Cells % (auto) 0.0, Fibrinogen 547H, D-Dimer, Quantitative 1830.06H, Anion Gap 10, Glomerular Filtration Rate 44.3, Calcium Level 7.7L, Ferritin 1194H, Total Bilirubin 0.1#L, Aspartate Amino Transf (AST/SGOT) 17, Alanine Aminotransferase (ALT/SGPT) 15, Alkaline Phosphatase 79, Lactate Dehydrogenase 223, C-Reactive Protein, Quantitative 16.40H, Total Protein 5.8L, Albumin 1.6L, Albumin/Globulin Ratio 0.4 11/13/20 06:00: Blood Gas Bicarbonate Standard 20.9L, Arterial Blood pH 7.360, Arterial Blood Partial Pressure CO2 37.6, Arterial Blood Partial Pressure O2 95.5, Arterial Blood Total CO2 21.9L, Arterial Blood HCO3 20.8L, Arterial Blood Base Excess - 4.2L, Arterial Blood Oxygen Saturation 96.6 11/13/20 06:07: Bedside Glucose (Misc Panel) 382H CBC/BMP Laboratory Tests 11/13/20 04:31 Microbiology Microbiology 11/04/20 Gram Stain - Final, Complete 11/04/20 Sputum Culture - Final, Complete Yeast Like Organism BERTRAM HYLTON MD Nov 13, 2020 10:46
--- NOTE | 2020-11-13 10:51 | CCN ---
CRITICAL CARE NOTE DATE: 11/13/2020 START TIME: 929 STOP TIME: 1008 SUBJECTIVE: I again attended [facility] here in the intensive care unit. The patient has been examined and chart reviewed. He remains intubated, sedated, and mechanically ventilated. OBJECTIVE: VITAL SIGNS: T-max overnight 98 degrees, blood pressure 100 to the 140s systolic, heart rate between 80 and 100, respiratory rate in the low 20s without accessory muscle. INTAKE AND OUTPUT: Vqxmsgjo-ev-zrhtbvnx 3289 mL in with 1250 out. GENERAL APPEARANCE: He is sedated, but awake and follows commands appropriately. HEENT: Pupils react. Sclerae clear. Trachea is in the midline. CHEST: Shows diminished, but symmetric expansion. He does have some dependent crackles. No convincing egophony. CARDIAC: Distant, but regular. Peripheral pulses palpable. Trace edema. ABDOMEN: Soft with active bowel sounds. No convincing organomegaly or masses. EXTREMITIES: No cyanosis or clubbing. NEUROLOGIC: As outlined above. LABORATORY DATA: Most recent laboratories show a sodium of 136, K of 4.4, chloride 102, CO2 of 24, BUN 31, creatinine 1.64, glucose 386. Ferritin mildly down from yesterday at 1194. CRP elevated at 16.4. White blood cell count 15.6, hemoglobin 10.4, platelet count 298,000. D-dimer about the same as yesterday 1830. Blood gas done on a PRVC mode rate of 15, tidal volume 420, PEEP of 10, FiO2 of 100%. Has a pH of 7.360, pCO2 of 37.6, and a PaO2 of 95.5. IMAGING: Chest x-ray is pending. ASSESSMENT AND PLAN: Most pressing problems requiring my presence at the bedside 1. COVID pneumonia with progressive hypoxia. 2. Respiratory failure requiring mechanical ventilatory support. 3. Underlying diabetes. 4. Acute kidney injury. 5. Underlying hypertension. He had some mild hypotension yesterday that responded nicely to an increase in IV fluids. I believe that continuing reasonably aggressive volume resuscitation is appropriate. Certainly the concern is always raised over "lung water", but certainly anything we can do to maximize his perfusion would certainly benefit him in the long run. He has had a little bump in his creatinine today and I think keeping the fluids at the current rate is reasonable. He is tolerating tube feeds. These will continue. Given his decline on the dose of Decadron he was on, we will increase his IV steroids and this was done today. At this point, he remains critically ill. His prognosis remains guarded at best in view of his multiorgan dysfunction. I left the bedside at 1008 hours. CRITICAL CARE TIME: 38 minutes delivered at the bedside not including procedures.
[2020-11-13] MEDS: methylPREDNISolone 125MG 2ML VIAL IV SCH ×2 (10:57→18:02)
[2020-11-13] MEDS: LEVEMIR (INSULIN DETEMIR) 1 UNITS/0.01ML SC SCH (10:57)
[2020-11-13 12:46] LABS: CREATININE,RANDOM URINE 15.4 MG/DL
[2020-11-14] VITALS (35 sets, daily range): BP systolic 102–195; BP diastolic 51–109; O2SAT 88
[2020-11-14] MEDS: MIDAZOLAM INJ 2MG/2ML VIAL (J2250 PER 1MG) IV PRN ×3 (00:10→13:40)
[2020-11-14] MEDS: HumaLOG INSULIN (NovoLOG) PER UNIT SC SCH ×2 (00:11→05:48)
[2020-11-14] MEDS: IPRATROPIUM 0.5MG/ALBUTEROL 2.5MG INH SOL UD 3ML (DUONEB) NEB SCH ×3 (01:20→15:09)
[2020-11-14] MEDS: propofoL 1,000 MG in IV 1 EA IV SCH ×4 (01:44→12:41)
[2020-11-14] MEDS: methylPREDNISolone 125MG 2ML VIAL IV SCH ×2 (03:43→10:20)
[2020-11-14] MEDS: KCL 20MEQ IN D5/0.45NS 1000ML 1,000 ML IV SCH (03:43)
[2020-11-14 05:05] LABS: HEMATOCRIT 33.4 % (42.0-52.0); MEAN CORPUSCULAR HEMOGLOBIN 30.5 pg (27.0-33.0); MEAN CORPUSCULAR HGB CONC 32.9 g/dl (32.0-36.5); MEAN CORPUSCULAR VOLUME 92.5 fl (80.0-96.0); PLATELET COUNT, AUTOMATED 335 10^3/uL (150-450); RED BLOOD COUNT 3.61 10^6/uL (4.30-6.10); WHITE BLOOD COUNT 18.4 10^3/uL (4.0-10.0)
[2020-11-14 05:18] LABS: D-DIMER QUANT 2077.58 ng/ml (<500)
[2020-11-14 05:22] LABS: ABG HCO3 22.8 MEQ/L (22.0-26.0); ABG O2 SATURATION 93.1 % (95.0-99.0); ABG PARTIAL PRESSURE CO2 49.5 mmHg (35.0-45.0); ABG PARTIAL PRESSURE O2 71.9 mmHg (75.0-100.0); ABG TOTAL CO2 24.4 MEQ/L (23.0-31.0); ABG pH (ARTERIAL) 7.282 UNITS (7.350-7.450)
[2020-11-14 05:41] LABS: ALBUMIN 1.6 GM/DL (3.2-5.2); BILIRUBIN,TOTAL 0.2 MG/DL (0.2-1.0); C REACTIVE PROTEIN QUANTITATIV 11.9 MG/DL (0.00-0.30); CALCIUM LEVEL 8.5 MG/DL (8.8-10.2); CREATININE FOR GFR 1.44 MG/DL (0.70-1.30); GLOMERULAR FILTRATION RATE 51.5 (>42); POTASSIUM SERUM 5.3 MEQ/L (3.5-5.1); TOTAL PROTEIN 6.8 GM/DL (6.4-8.2)
[2020-11-14] MEDS ORDERED: LevoFLOXacin 750 MG TABLET PO SCH (06:00)
--- NOTE | 2020-11-14 07:13 | REP ---
INDICATION: Resp Failure COMPARISON: 11/12/2020 TECHNIQUE: Portable AP view of the chest FINDINGS: Endotracheal tube 4 cm above the jeramy. Nasogastric tube courses below left hemidiaphragm. The mediastinum and cardiac silhouette are stable and within normal limits for portable technique. The lung sibley demonstrate diffuse bilateral infiltrates/opacities essentially unchanged from prior examination. No obvious effusion. No pneumothorax. IMPRESSION: Diffuse bilateral infiltrates similar to prior examination. <Electronically signed by Aaron Hunt > 11/14/20 0709
[2020-11-14] MEDS ORDERED: D5W/0.45% SODIUM CHLORIDE 1,000 ML IV SCH (08:00)
[2020-11-14] MEDS: PANTOPRAZOLE 40MG TAB (PROTONIX) PO SCH (09:00)
[2020-11-14] MEDS: CHLORHEXIDINE GLUCONATE 0.12 % 15ML UDC (PERIDEX ORAL RINSE) MT SCH (09:24)
[2020-11-14] MEDS: SENOKOT S TAB PO SCH (09:30)
[2020-11-14] MEDS ORDERED: fentaNYL 100 MCG/2 ML INJECTION (J3010) IV PRN (09:30)
[2020-11-14] MEDS: ENOXAPARIN 40MG/0.4ML SYRINGE (J1650 PER 10MG) SC SCH (09:33)
[2020-11-14] MEDS: LEVEMIR (INSULIN DETEMIR) 1 UNITS/0.01ML SC SCH (09:34)
[2020-11-14] MEDS: atenoloL 25 MG TAB PO SCH (09:35)
[2020-11-14] MEDS ORDERED: NS 0.45% 1,000 ML IV SCH (10:30)
--- NOTE | 2020-11-14 11:03 | IPNPDOC ---
Date Seen The patient was seen on 11/14/20. Progress Note 70-year-old male with a PMHx of HTN, DM2, CKD3, who presented to the ER with worsening shortness of breath that has been ongoing for since 10/18. Patient had tested positive for COVID19 on 10/27. He underwent decline in respiratory status, and was transfered to ICU for worsening hypoxia. Patient was seen and examined this morning. Vitals stable. Poorly tolerated vent, required higher pressures overnight. Less responsive this morning compared to yesterday morning. OBJECTIVE PHYSICAL EXAMINATION: VITAL SIGNS: please see below General: NAD, comfortable HEENT: PERRLA, EOMI, sclerae clear. ETT in place Neck: supple, normal ROM, no JVD Respiratory: mild crackles at bases, fairly clear otherwise CVS: RRR, normal S1, S2, no murmurs Abdo: soft, no masses, no hepatosplenomegaly, BS+, no rebound tenderness Extremities: no edema, pulses 2+ MSK: no joint deformities, normal ROM Neuro: no focal neuro deficits, moving all 4 extremities, CN2-12 intact. Strength 5/5 in all 4 extremities. No nystagmus. LABORATORY DATA, IMAGING STUDIES, MICROBIOLOGY: Please see below. CXR (11/14/20): Endotracheal tube 4 cm above the jeramy. Nasogastric tube courses below left hemidiaphragm. The mediastinum and cardiac silhouette are stable and within normal limits for portable technique. The lung sibley demonstrate diffuse bilateral infiltrates/opacities essentially unchanged from prior examination. No obvious effusion. No pneumothorax. IMPRESSION: Diffuse bilateral infiltrates similar to prior examination DVT prophylaxis ordered?: Lovenox, 0.5 mg/kg q12h ASSESSMENT AND PLAN: Acute hypoxic respiratory failure - likely 2/2 COVID19 PNA; possibly 2/2 superimposed bacterial infection Viral sepsis 2/2 covid-19 infection - intubated - Inflammatory markers worsening - strongly encouraged proning while in bed, oob to chair - Sputum cultures 11/01; 11/04: Yeast like organisms - s/p Dexamethasone (14 days), reviewed and appreciate recs from pulm, taper down dexamethasone to solumedrol. - Levaquin (Day #5); s/p Ceftriaxone (x 7 day course); s/p fluconazole 5 days Will follow PCT - c/w incentive spirometry and symptomatic control - Pulmonology on consultation; given prolonged course of infection there is concern for fibrotic stage at this time IDDM2 with hyperglycemia - c/w ISS - resume levemir 30 units qam - DC d5 per jigna Ramesh to 1/2 NS Hypomagnesemia - replace s/p JONATHAN on CKD - Sharp increase in Cr to 1.64 - possible nephrotoxicity observed from levaquin and fluconazole - discussed with Dr. Sharma, advised to DC fluconazole as likely asymptomatic candiuria - advised [place] cath, and to DC valladares - renally dose meds by pharmacy - Cr baseline of 1.0-1.1 - Cr currently at baseline HTN - BP well controlled - c/w atenolol Chronic back pain - c/w [place] GI prophylaxis - c/w Protonix DVT prophylaxis - c/w Lovenox weight-based prophylactic dosing Disposition: - Awaiting clinical improvement, presently intubated VS, I&O, 24H, Fishbone Vital Signs/I&O Vital Signs Date Time Temp Pulse Resp B/P (MAP) Pulse Ox O2 Delivery O2 Flow Rate FiO2 11/14/20 10:19 20 11/14/20 09:35 129 139/67 11/14/20 08:44 88 80 11/14/20 08:28 Ventilator 11/14/20 04:00 98.4 11/12/20 03:00 40.0 I&O- Last 24 Hours up to 6 AM 11/14/20 06:00 Intake Total 4576.3 ml Output Total 3575 ml Balance 1001.3 ml Laboratory Data 24H LABS Laboratory Tests 2 11/13/20 12:00: Urine Random Creatinine 15.4, Urine Random Sodium 30 11/13/20 18:01: Bedside Glucose (Misc Panel) 418H 11/14/20 00:07: Bedside Glucose (Misc Panel) 404H 11/14/20 04:44: Nucleated Red Blood Cells % (auto) 0.0, Fibrinogen 579H, D-Dimer, Quantitative 2077.58H, Anion Gap 3L, Glomerular Filtration Rate 51.5, Calcium Level 8.5L, Ferritin 1276H, Total Bilirubin 0.2#, Aspartate Amino Transf (AST/SGOT) 27, Alanine Aminotransferase (ALT/SGPT) 25, Alkaline Phosphatase 93, Lactate Dehydrogenase 216, C-Reactive Protein, Quantitative 11.90H, Total Protein 6.8, Albumin 1.6L, Albumin/Globulin Ratio 0.3 11/14/20 05:00: Blood Gas Bicarbonate Standard 21.0L, Arterial Blood pH 7.282L, Arterial Blood Partial Pressure CO2 49.5H, Arterial Blood Partial Pressure O2 71.9L, Arterial Blood Total CO2 24.4, Arterial Blood HCO3 22.8, Arterial Blood Base Excess - 4.0L, Arterial Blood Oxygen Saturation 93.1L 11/14/20 05:44: Bedside Glucose (Misc Panel) 367H CBC/BMP Laboratory Tests 11/14/20 04:44 Microbiology Microbiology 11/04/20 Gram Stain - Final, Complete 11/04/20 Sputum Culture - Final, Complete Yeast Like Organism BERTRAM HYLTON MD Nov 14, 2020 11:03
[2020-11-14] MEDS ORDERED: INSULIN REGULAR IN 0.9 % NACL 100 UNIT in IV 1 EA IV SCH ×2 (12:56)
[2020-11-14] MEDS ORDERED: INSULIN IV RATE CHANGE DOCUMENTATION ML/HR XX SCH (13:00)
[2020-11-14] MEDS ORDERED: CISATRACURIUM 200 MG in NS 480 ML IV SCH (14:00)
--- NOTE | 2020-11-14 16:00 | REP ---
INDICATION: central line placement. COMPARISON: Comparison chest x-ray November 14, 2020 6:16 a.m. film TECHNIQUE: Portable upright AP chest radiograph. FINDINGS: A right internal jugular central venous line is been inserted and its tip is in the expected location of the superior vena cava. NG tube enters the left upper quadrant. Endotracheal tube remains in good position at the level of the proximal clavicles. Extensive bilateral infiltrates are noted these are unchanged. There is no evidence of pneumothorax. Heart size is normal unchanged.. IMPRESSION: Right IJ line in good position. No complication seen. Extensive infiltrates persist. Endotracheal and nasogastric tubes remain in good position.. <Electronically signed by Luisito Olivares > 11/14/20 [id number]
--- NOTE | 2020-11-14 18:49 | CCN ---
CRITICAL CARE NOTE DATE: 11/14/2020 Patient was seen and examined this morning during bedside rounds. This morning, patient was desaturating and required increasing amount of FiO2 requirement as well as increased positive end-expiratory pressure (PEEP). He also appeared to be febrile with a low-grade temperature. Patient was also tachycardic with his heart rate into the 120s. He was given Tylenol as well as fentanyl, and his heart rate improved. Patient is still sedated while intubated and is very minimally responsive to any painful stimuli. PHYSICAL EXAMINATION: VITAL SIGNS: Temperature 99.4, pulse 109, respirations 25, blood pressure 147/72, oxygen saturation 88% on 90% FiO2. Input 2.6 liters, output 3.1 liters. GENERAL: Patient is intubated and sedated. He is minimally responsive to any painful stimuli. HEENT: Normocephalic, atraumatic. Pupils are small but sluggishly reactive to light. Trachea is midline. He has an orogastric (OG) tube in place. CARDIAC: Regular rate and rhythm. Tachycardic. Normal S1, S2. Unable to appreciate any murmurs clearly. RESPIRATORY: Diminished breath sounds bilaterally with few crackles noted more at the base. ABDOMEN: Soft, nontender, nondistended. No palpable organomegaly. EXTREMITIES: There is trace pitting edema bilaterally. LABORATORY DATA: WBC 18.4, hemoglobin 11.0, platelets 335. Chemistry: Sodium 136, potassium 5.3, chloride 108, bicarbonate 25, BUN 27, creatinine 1.44, glucose 359. Calcium is 8.5. Ferritin is 1276. LDH is 216. CRP is 11.9. Procalcitonin is 0.17. Albumin is 1.6. D-dimer is 2077. ABG: A pH is 7.282, pCO2 of 49.5, pO2 of 71.9. IMAGING: Chest x-ray this morning showed endotracheal (ET) tube and orogastric (OG) tube in place. There are bilateral extensive infiltrates noted with some suggestion of fibrotic changes. ASSESSMENT AND PLAN: Mr. Butts is a 70-year-old male with a past medical history of hypertension, diabetes, chronic kidney disease (CKD), who presented with worsening shortness of breath and fever. He was diagnosed with COVID-19 on 10/27/2020 and was noted to have acute hypoxemic respiratory failure. Patient had received a course of dexamethasone during his admission. As he was thought to be outside the window for remdesivir, he did not receive any remdesivir on admission, and he did not receive baricitinib or tocilizumab as well. He was treated with broad-spectrum antibiotics, and he was also alternating between VapoTherm and bilevel positive airway pressure (BiPAP). Patient was noted to have worsening interstitial opacities on imaging and worsening desaturation despite being on maximal settings of VapoTherm. He was therefore intubated early in the morning of 11/12/2020 and placed on mechanical ventilation. Patient was given higher dose of steroids post intubation with Solu-Medrol. He was having issues as well of hyperglycemia this morning and worsening hypoxia despite increasing FiO2 and positive end-expiratory pressure (PEEP). 1. Neurologic. Patient is currently intubated and so is sedated. He is on propofol for sedation with Versed as needed. - Will add fentanyl for analgesia and Tylenol for fever. - Patient is unable to have weaning trial given his significantly high FiO2 requirements. He will also be started on paralytic with Nimbex given his severe respiratory failure and acute respiratory distress syndrome (ARDS). He was ensured to be adequately sedated prior to starting paralytic. Will continue to monitor his [id number]'s for a goal of 2/4. 2. Cardiac. Patient with no prior reported cardiac history. He has remained without need of vasopressors; however, today he was noted to be more tachycardic, thought to be in the setting of fever as well as possible pain. - Patient did have a mild lactic acidosis, likely in the setting of his sepsis. He also had some mild troponinemia today, likely component demand ischemia which will be continued to be trended. He is already on Lovenox for prophylactic anticoagulation but will start aspirin, for his type II AK secondary to his severe respiratory failure and sepsis - Will discontinue his atenolol given his sepsis. He was tachycardic initially but now has been having episodes of bradycardia as well. Will continue to monitor blood pressure and maintain a mean arterial pressure (MAP) above 65. He may need vasopressors. Will place a central line for access and for possible vasopressor administration. 3. Respiratory. Patient with a history of COVID-19 pneumonia with acute hypoxemic respiratory failure and ARDS. He is not intubated and on mechanical ventilation. Patient was requiring FiO2 of 100% and a PEEP of 15 and continues to be hypoxic with the saturations only in the 80s. He will therefore be paralyzed with Nimbex drip and also be started on pronation protocol. - Will continue with daily ABGs. Would discontinue daily chest x-rays for now but continue chest x-rays as needed. - Will repeat an ABG after he has been paralyzed and proned. He does have increased respiratory acidosis as well as a possible metabolic acidosis on his ABG today. His respiratory rate was increased and will continue to monitor. - Patient has been on antibiotics, which were broad spectrum and then de-escalated to Levaquin. Will continue Levaquin for now but will closely monitor his fever curve and reculture if needed. 4. Renal. Patient with acute kidney injury (JONATHAN) on chronic kidney disease (CKD). He also has a history of insulin-dependent diabetes and has been noted to be more hyperglycemic today. - His D5 fluids were discontinued, and he was continued with half normal saline (NS) instead for fluid hydration given his JONATHAN. His renal function has been slowly improving. - Patient was hyperkalemic today as well. His standing potassium supplementation was discontinued. Will continue to monitor his electrolytes and replete as needed. - Will with Dennys for critical illness monitoring of his intake and output with his JONATHAN. - Patient's fingerstick glucose had gone up to 500 despite discontinuing his D5 fluids and increasing his sliding-scale coverage. Will therefore start him on insulin drip with a non-DKA protocol. 5. Gastrointestinal (GI). Patient is on tube feeds currently, which he has been tolerating. Will discontinue his tube feeds, as he will be paralyzed. 6. GI prophylaxis with Protonix. 7. Deep venous thrombosis (DVT) prophylaxis with weight-based Lovenox. CODE STATUS: Full code. Patient with poor prognosis given his severe respiratory failure and ARDS. will discuss with family Total critical care time spent, not including any procedures: Approximately 1 hour and 25 minutes. MTDD
--- NOTE | 2020-11-14 19:19 | IPNPDOC ---
Date Seen The patient was seen on 11/14/20. Progress Note Max Cart was called, on arrival to room, ACLS protocol was already being administered by Dr. De La Rosa. Patient was intubated since 11/12/20 due to acute hypoxic respiratory failure and ARDS, and has required full ventilatory support. On 11/14/19, patient was requiring FiO2 of 100% and high PEEP of 21.5, despite this was persistently hypoxic to 80s. Patient was attempted to be proned, but developed Vfib and subsequent cardiac arrest, possibly precipitated by an acute coronary syndrome given noted elevated troponin. I spoke to patient's Patricia Butts (tel [phone]) during the max cart and informed her of the 's current condition. Patient's decided for comfort measures as the patient was not able to tolerate mechanical ventilation despite high PEEP and FiO2, nor proning and cardiac arrest due to vfib. Given futility of intervention, Mrs. Butts decided for comfort measures status and DNR/DNI. MOLST form complete and witnessed. Code was stopped subsequently. VS, I&O, 24H, On License Of [facility] Vital Signs/I&O Vital Signs Date Time Temp Pulse Resp B/P (MAP) Pulse Ox O2 Delivery O2 Flow Rate FiO2 11/14/20 16:41 25 88 100 11/14/20 09:35 129 139/67 11/14/20 08:28 Ventilator 11/14/20 04:00 98.4 11/12/20 03:00 40.0 I&O- Last 24 Hours up to 6 AM 11/14/20 06:00 Intake Total 4576.3 ml Output Total 3575 ml Balance 1001.3 ml Laboratory Data 24H LABS Laboratory Tests 2 11/14/20 00:07: Bedside Glucose (Misc Panel) 404H 11/14/20 04:44: Nucleated Red Blood Cells % (auto) 0.0, Fibrinogen 579H, D-Dimer, Quantitative 2077.58H, Anion Gap 3L, Glomerular Filtration Rate 51.5, Calcium Level 8.5L, Ferritin 1276H, Total Bilirubin 0.2#, Aspartate Amino Transf (AST/SGOT) 27, Alanine Aminotransferase (ALT/SGPT) 25, Alkaline Phosphatase 93, Lactate Dehydrogenase 216, C-Reactive Protein, Quantitative 11.90H, Total Protein 6.8, Albumin 1.6L, Albumin/Globulin Ratio 0.3 11/14/20 05:00: Blood Gas Bicarbonate Standard 21.0L, Arterial Blood pH 7.282L, Arterial Blood Partial Pressure CO2 49.5H, Arterial Blood Partial Pressure O2 71.9L, Arterial Blood Total CO2 24.4, Arterial Blood HCO3 22.8, Arterial Blood Base Excess - 4.0L, Arterial Blood Oxygen Saturation 93.1L 11/14/20 05:44: Bedside Glucose (Misc Panel) 367H 11/14/20 12:09: Lactic Acid Level 2.3*H, Troponin I 0.49H, Procalcitonin 0.16 11/14/20 12:37: Bedside Glucose (Misc Panel) 563*H 11/14/20 12:42: Bedside Glucose Confirm (Misc) 610*H CBC/BMP Laboratory Tests 11/14/20 04:44 Microbiology Microbiology 11/14/20 Blood Culture, Received Pending 11/14/20 Blood Culture, Received Pending 11/04/20 Gram Stain - Final, Complete 11/04/20 Sputum Culture - Final, Complete Yeast Like Organism BERTRAM HYLTON MD Nov 14, 2020 19:19
--- NOTE | 2020-11-14 19:51 | DS.PDOC ---
Discharge Summary General Date of Admission Oct 29, 2020 at 20:59 Date of Discharge 11/14/20 Discharge Summary PROCEDURES PERFORMED DURING STAY: [None]. 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 HISTORY OF PRESENT ILLNESS: 70-year-old male with a past medical history of HTN, DM2, CKD III, presenting with progressively worsening shortness of breath, fevers and malaise for the past 2 weeks. Was diagnosed with covid-19 on 10/27/20. Patient denies chest pain, palpitations, nausea, vomiting or diarrhea. Patient at baseline is able to ambulate independently, and requires no mobility aids. On arrival to ED, patient was hypoxic to the high 70s, and adequate oxygenation was not supplied by nasal cannula. Required vapotherm but continued to desaturate despite max settings Relevant labs noted were Na 130. Cr 1.95. BUN 49. GLU 580. LA 2.1. Ferritin 1772. LDH 402. CRP 26.3. Procal 0.34. ABG pH 7.375. pO2 62.4. HCO3 16.3. CO2 28.6. Patient will be admitted to ICU for bipap. HOSPITAL COURSE: Patient on 11/14/20. Max Cart was called, on arrival to room, ACLS protocol was already being administered by Dr. De La Rosa. Patient was intubated since 11/12/20 due to acute hypoxic respiratory failure and ARDS, and has required full ventilatory support. On 11/14/19, patient was requiring FiO2 of 100% and high PEEP of 21.5, despite this was persistently hypoxic to 80s. Patient was attempted to be proned, but developed Vfib and subsequent cardiac arrest, possibly precipitated by an acute coronary syndrome given noted elevated troponin. I spoke to patient's Patricia Butts during the max cart and informed her of the 's current condition. Patient's decided for comfort measures as the patient was not able to tolerate mechanical ventilation despite high PEEP and FiO2, nor proning and onset of Vfib leading to cardiac arrest during proning. Given futility of intervention, Mrs. Butts decided for comfort measures status and DNR/DNI. MOLST form completed and witnessed. Further problems during admission were managed as follows: Acute hypoxic respiratory failure - likely 2/2 COVID19 PNA; possibly 2/2 superimposed bacterial infection Viral sepsis 2/2 covid-19 infection - intubated - Inflammatory markers worsening - grave prognosis. - strongly encouraged proning while in bed, oob to chair - Sputum cultures 11/01; 11/04: Yeast like organisms - s/p Dexamethasone (14 days), reviewed and appreciate recs from pulm, taper down dexamethasone to solumedrol. - s/p 5 days levaquin; s/p Ceftriaxone (x 7 day course); s/p fluconazole 5 days Will follow PCT - c/w incentive spirometry and symptomatic control - Pulmonology on consultation; given prolonged course of infection there is concern for fibrotic stage at this time IDDM2 with hyperglycemia - c/w ISS - levemir Hypomagnesemia - replaced s/p JONATHAN on CKD - Sharp increase in Cr to 1.64 - possible nephrotoxicity observed from levaquin and fluconazole - discussed with Dr. Sharma, advised to DC fluconazole as likely asymptomatic candiduria - advised [place] cath, and to DC valladares - renally dose meds by pharmacy - Cr baseline of 1.0-1. HTN - BP well controlled - atenolol Chronic back pain - [place] GI prophylaxis - Protonix DVT prophylaxis - Lovenox weight-based prophylactic dosing DISCHARGE MEDICATIONS: Please see below. ALLERGIES: Please see below. PHYSICAL EXAMINATION ON DISCHARGE: . No palpable carotid pulses. No cardiac sounds were heard on auscultation of the entire precordium. No breath sounds were heard on a uscultation of bilateral lung sibley. No corneal reflex. LABORATORY DATA: Please see below. IMAGING: CXR (11/14/20): Endotracheal tube 4 cm above the jeramy. Nasogastric tube courses below left hemidiaphragm. The mediastinum and cardiac silhouette are stable and within normal limits for portable technique. The lung sibley demonstrate diffuse bilateral infiltrates/opacities essentially unchanged from prior examination. No obvious effusion. No pneumothorax. IMPRESSION: Diffuse bilateral infiltrates similar to prior examination CXR (10/29/20) Bilateral lower lung infiltrates peripherally. PROGNOSIS: DISPOSITION: 20 . DISCHARGE CONDITION: [Stable]. TIME SPENT ON DISCHARGE: 25 minutes Vital Signs/I&Os Vital Signs Date Time Temp Pulse Resp B/P (MAP) Pulse Ox O2 Delivery O2 Flow Rate FiO2 11/14/20 17:15 84 85 11/14/20 17:11 139/62 (87) 11/14/20 16:41 25 100 11/14/20 16:00 98.8 Ventilator 11/12/20 03:00 40.0 I&O- Last 24 Hours up to 6 AM 11/14/20 06:00 Intake Total 4576.3 ml Output Total 3575 ml Balance 1001.3 ml Laboratory Data Labs 24H Laboratory Tests 2 11/14/20 00:07: Bedside Glucose (Misc Panel) 404H 11/14/20 04:44: Nucleated Red Blood Cells % (auto) 0.0, Fibrinogen 579H, D-Dimer, Quantitative 2077.58H, Anion Gap 3L, Glomerular Filtration Rate 51.5, Calcium Level 8.5L, Ferritin 1276H, Total Bilirubin 0.2#, Aspartate Amino Transf (AST/SGOT) 27, Alanine Aminotransferase (ALT/SGPT) 25, Alkaline Phosphatase 93, Lactate Dehydrogenase 216, C-Reactive Protein, Quantitative 11.90H, Total Protein 6.8, Albumin 1.6L, Albumin/Globulin Ratio 0.3 11/14/20 05:00: Blood Gas Bicarbonate Standard 21.0L, Arterial Blood pH 7.282L, Arterial Blood Partial Pressure CO2 49.5H, Arterial Blood Partial Pressure O2 71.9L, Arterial Blood Total CO2 24.4, Arterial Blood HCO3 22.8, Arterial Blood Base Excess - 4.0L, Arterial Blood Oxygen Saturation 93.1L 11/14/20 05:44: Bedside Glucose (Misc Panel) 367H 11/14/20 12:09: Lactic Acid Level 2.3*H, Troponin I 0.49H, Procalcitonin 0.16 11/14/20 12:37: Bedside Glucose (Misc Panel) 563*H 11/14/20 12:42: Bedside Glucose Confirm (Misc) 610*H CBC/BMP Laboratory Tests 11/14/20 04:44 FSBS Laboratory Tests Test 11/14/20 00:07 11/14/20 05:44 11/14/20 12:37 Range/Units Bedside Glucose (Misc Panel) 404 367 563 83-110 MG/DL Microbiology Microbiology 11/14/20 Blood Culture, Received Pending 11/14/20 Blood Culture, Received Pending 11/04/20 Gram Stain - Final, Complete 11/04/20 Sputum Culture - Final, Complete Yeast Like Organism Discharge Medications Scheduled Atenolol (Atenolol) 50 Mg Tablet, 50 MG PO BID, (Reported) Glimepiride (Glimepiride) 4 Mg Tablet, 4 MG PO BID, (Reported) BEFORE MEALS Losartan Potassium (Losartan Potassium) 50 Mg Tablet, 50 MG PO DAILY, (Reported) Metformin HCl (Metformin HCl) 500 Mg Tablet, 500 MG PO BIDWM, (Reported) Scheduled PRN Carisoprodol (Carisoprodol) 350 Mg Tablet, 350 MG PO QID PRN for MUSCLE SPASMS, (Reported) Hydrocodone/Acetaminophen ([place] 5-325 Tablet) 1 Each Tablet, 1 TAB PO TID PRN for PAIN, (Reported) Allergies Coded Allergies: No Known Drug Allergies (Verified Allergy, Unknown, 10/29/20) BERTRAM HYLTON MD Nov 14, 2020 19:51
[2020-11-14] MEDS ORDERED: methylPREDNISolone 125MG 2ML VIAL IV SCH (23:00)
--- NOTE | 2020-11-16 17:47 | RO ---
OPERATIVE NOTE DATE OF OPERATION: PROCEDURE: Right internal jugular vein central venous catheter placement. INDICATION: Need for vascular access. PROCEDURE SURVEYOR INSTRUMENT ASSISTANT: Jamie Tinsley DO, internal medicine resident PGY-3 ATTENDING PHYSICIAN: Dorota De La Rosa MD, pulmonary/critical care medicine CONSENT: Due to the emergent nature of the procedure consent was implied DESCRIPTION OF PROCEDURE: A time-out was performed. My hands were washed immediately prior to the procedure. Due to COVID-19 infection, a surgical cap, mask and protective eyewear, full gown and surgical gloves were placed over thermal PPE and were worn throughout the procedure. The patient was placed in the Trendelenburg position. The right neck and chest region was prepped using chlorhexidine scrub and draped in a sterile fashion using a drape. A sterile probe cover was employed on the ultrasound. The medial and lateral heads of the sternocleidomastoid muscle were identified as was the carotid pulse. The internal jugular vein was identified using ultrasound. Anesthesia was achieved over the vein using 1% lidocaine. Using real-time ultrasound, the introducer needle was inserted into the internal jugular vein under direct ultrasound visualization. Venous blood was withdrawn. The syringe was removed and a guidewire was advanced into the introducer needle. The guidewire was visualized in the internal jugular vein by ultrasound. A small incision was made at the skin surface with a scalpel. The introducer needle was exchanged for a dilator over the guidewire. After appropriate dilation was obtained, the dilator was exchanged over the wire for a central venous catheter. The wire was removed and the catheter was sutured in place. A sterile [employer] shield was placed over the catheter insertion site. The patient tolerated the procedure well. There was no hemodynamic compromise after the titled procedure completion. All ports aspirated and flushed properly. A post-procedure chest x-ray demonstrated the central venous catheter in appropriate position. I, Dorota De La Rosa, was present and supervised the entirety of the procedure. [facility]OSPITALBalwinder
== END 2020-11-14 17:23 | disposition expired | DRG 208 ==
LOC: M ED 15:21 → M ED INP 20:59 → M ICU 10-30 07:54
PROVIDERS: ADMIT Family Medicine; ATTEND Family Medicine
PROC: 3E0333Z Introduction of Anti-inflammatory into Peripheral Vein, Percutaneous Approach (ICD-10-PCS; 2020-10-29)
PROC: 5A1945Z Respiratory Ventilation, 24-96 Consecutive Hours (ICD-10-PCS; principal; 2020-11-12)
PROC: 0BH17EZ Insertion of Endotracheal Airway into Trachea, Via Natural or Artificial Opening (ICD-10-PCS; 2020-11-12)
PROC: 02HV33Z Insertion of Infusion Device into Superior Vena Cava, Percutaneous Approach (ICD-10-PCS; 2020-11-14)
DX: U07.1 COVID-19 (principal); J96.01 Acute respiratory failure with hypoxia; J15.9 Unspecified bacterial pneumonia; A41.89 Other specified sepsis; E87.2 Acidosis; N17.9 Acute kidney failure, unspecified; D68.59 Other primary thrombophilia; R64 Cachexia; E46 Unspecified protein-calorie malnutrition; I24.8 Other forms of acute ischemic heart disease; J81.1 Chronic pulmonary edema; I47.2 Ventricular tachycardia; E11.22 Type 2 diabetes mellitus with diabetic chronic kidney disease; Z51.5 Encounter for palliative care; E83.42 Hypomagnesemia; Z66 Do not resuscitate; I12.9 Hypertensive chronic kidney disease with stage 1 through stage 4 chronic kidney disease, or unspecified chronic kidney disease; N18.30 Chronic kidney disease, stage 3 unspecified; E87.5 Hyperkalemia; I44.1 Atrioventricular block, second degree; M51.16 Intervertebral disc disorders with radiculopathy, lumbar region; I46.9 Cardiac arrest, cause unspecified; E11.65 Type 2 diabetes mellitus with hyperglycemia; G51.0 Bell's palsy; M17.11 Unilateral primary osteoarthritis, right knee; I25.10 Atherosclerotic heart disease of native coronary artery without angina pectoris; E87.6 Hypokalemia; F41.1 Generalized anxiety disorder; K76.89 Other specified diseases of liver; Z85.828 Personal history of other malignant neoplasm of skin; Z90.49 Acquired absence of other specified parts of digestive tract; Z79.84 Long term (current) use of oral hypoglycemic drugs; Z79.899 Other long term (current) drug therapy; Z87.891 Personal history of nicotine dependence